=== PATIENT | female | born 1990 | race Caucasian/White ===

== ENCOUNTER 2018-04-27 13:22 | Inpatient (IN) | payer MEDICAID ==
[~2018-04-27] VITALS: Ht 162.6 cm; Wt 63.5 kg
[2018-04-27] MEDS ORDERED: ZOLPIDEM TARTRATE 10 MG TABLET PO PRN (17:15)
[2018-04-27 19:13] VITALS: BP 113/61
[2018-04-27] MEDS ORDERED: DOCUSATE SODIUM 100 MG CAPSULE PO PRN (19:15)
[2018-04-27] MEDS ORDERED: MAG HYDROX/AL HYDROX/SIMETH ES 30 ML SUSPENSION UDCUP PO PRN (19:15)
[2018-04-27] MEDS ORDERED: CloNIDine HCL 0.1 MG TABLET PO PRN (19:15)
[2018-04-27] MEDS ORDERED: ONDANSETRON HCL 4 MG TABLET PO PRN (19:15)
[2018-04-27] MEDS ORDERED: GuaiFENesin/D-METHORPHAN [SUGAR-FREE] 200-20MG/10 ML SYRUP UDCUP PO PRN (19:15)
[2018-04-27] MEDS ORDERED: IBUPROFEN 400 MG TABLET PO PRN (19:15)
[2018-04-27] MEDS ORDERED: LOPERAMIDE HCL 2 MG CAPSULE PO PRN (19:15)
[2018-04-27] MEDS ORDERED: MAGNESIUM HYDROXIDE SUSPENSION 30 ML UDCUP PO PRN (19:15)
[2018-04-27] MEDS ORDERED: PETROLATUM,WHITE 71 GM JELLY TP PRN (19:15)
[2018-04-27] MEDS ORDERED: NICOTINE 14 MG/24 HOUR PATCH TD PRN (19:15)
[2018-04-27] MEDS ORDERED: ALBUTEROL SULFATE HFA 90 MCG/PUFF 8 GM INHALER IH PRN (19:15)
[2018-04-27] MEDS ORDERED: ACETAMINOPHEN 325 MG TABLET PO PRN (19:15)
[2018-04-28 06:18] VITALS: BP 116/68
[2018-04-28 08:56] VITALS: BP 107/63
[2018-04-28] MEDS: RisperiDONE 1 MG TABLET PO SCH ×2 (14:46→16:17)
[2018-04-28 16:00] VITALS: BP 100/8
[2018-04-28] MEDS: NICOTINE 14 MG/24 HOUR PATCH TD SCH (17:53)
[2018-04-29] VITALS: BP 94/45
[2018-04-29 09:03] VITALS: BP 108/65
[2018-04-29] MEDS: RisperiDONE 1 MG TABLET PO SCH ×2 (09:39→16:37)
[2018-04-29] MEDS: NICOTINE 14 MG/24 HOUR PATCH TD SCH (09:40)
[2018-04-29] MEDS: LORazepam 2 MG TABLET PO PRN (13:32)
[2018-04-29] MEDS: HALOPERIDOL 5 MG TABLET PO PRN (14:51)
[2018-04-29 16:00] VITALS: BP 109/59
[2018-04-29] MEDS: MIRTAZAPINE 15 MG TABLET PO SCH (20:49)
[2018-04-30 02:21] VITALS: BP 110/74
[2018-04-30 08:23] VITALS: BP 102/60
[2018-04-30] MEDS: RisperiDONE 1 MG TABLET PO SCH ×2 (08:40→16:07)
[2018-04-30] MEDS: NICOTINE 14 MG/24 HOUR PATCH TD SCH (08:40)
[2018-04-30] MEDS: LORazepam 2 MG TABLET PO PRN (14:32)
[2018-04-30] MEDS: HALOPERIDOL 5 MG TABLET PO PRN (14:32)
[2018-04-30 16:19] VITALS: BP 98/68
[2018-04-30] MEDS: MIRTAZAPINE 15 MG TABLET PO SCH (20:17)
[2018-05-01 06:56] VITALS: BP 101/63
[2018-05-01 08:35] VITALS: BP 104/60
[2018-05-01] MEDS: NICOTINE 14 MG/24 HOUR PATCH TD SCH (09:18)
[2018-05-01] MEDS: RisperiDONE 2 MG TABLET PO SCH ×2 (09:20→17:17)
[2018-05-01] MEDS: LORazepam 2 MG TABLET PO PRN ×2 (14:30→18:32)
[2018-05-01 16:07] VITALS: BP 118/69
[2018-05-01] MEDS: HALOPERIDOL 5 MG TABLET PO PRN (16:07)
[2018-05-01] MEDS: MIRTAZAPINE 15 MG TABLET PO SCH (21:09)
[2018-05-02 06:15] VITALS: BP 124/70
[2018-05-02] MEDS: RisperiDONE 2 MG TABLET PO SCH ×2 (08:22→16:11)
[2018-05-02] MEDS: NICOTINE 14 MG/24 HOUR PATCH TD SCH ×2 (08:24→14:24)
[2018-05-02 08:28] VITALS: BP 101/61
[2018-05-02] MEDS: LORazepam 2 MG TABLET PO PRN ×2 (13:16→18:44)
[2018-05-02] MEDS: HALOPERIDOL 5 MG TABLET PO PRN (13:16)
[2018-05-02 16:00] VITALS: BP 110/74
[2018-05-02] MEDS: MIRTAZAPINE 15 MG TABLET PO SCH (20:27)
[2018-05-03 01:47] VITALS: BP 109/68
[2018-05-03] MEDS: NICOTINE 14 MG/24 HOUR PATCH TD SCH (09:51)
[2018-05-03] MEDS: RisperiDONE 2 MG TABLET PO SCH ×2 (09:56→17:03)
[2018-05-03] MEDS: LORazepam 2 MG TABLET PO PRN (15:56)
[2018-05-03 16:00] VITALS: BP 111/64
[2018-05-03] MEDS: MIRTAZAPINE 15 MG TABLET PO SCH (21:31)
[2018-05-04 04:05] VITALS: BP 100/68
[2018-05-04] MEDS: RisperiDONE 2 MG TABLET PO SCH ×2 (09:15→16:47)
[2018-05-04] MEDS: NICOTINE 14 MG/24 HOUR PATCH TD SCH (09:16)
[2018-05-04] MEDS: HALOPERIDOL 5 MG TABLET PO PRN ×2 (12:27→16:47)
[2018-05-04] MEDS: LORazepam 2 MG TABLET PO PRN ×2 (12:27→16:47)
[2018-05-04] MEDS: TRIHEXYPHENIDYL HCL 5 MG TABLET PO SCH ×2 (12:57→16:47)
[2018-05-04 16:23] VITALS: BP 110/62
[2018-05-04] MEDS: MIRTAZAPINE 15 MG TABLET PO SCH (20:34)
[2018-05-05 01:33] VITALS: BP 101/65
[2018-05-05] MEDS: LORazepam 2 MG TABLET PO PRN (01:35)
[2018-05-05] MEDS: NICOTINE 14 MG/24 HOUR PATCH TD SCH (08:29)
[2018-05-05] MEDS: RisperiDONE 2 MG TABLET PO SCH (08:29)
[2018-05-05] MEDS: TRIHEXYPHENIDYL HCL 5 MG TABLET PO SCH (08:31)
[2018-05-05] MEDS ORDERED: MIRT15 PO (11:54)
[2018-05-05] MEDS ORDERED: TRIH5TAB2 PO (11:54)
[2018-05-05] MEDS ORDERED: RISP2 PO (11:54)
== END 2018-05-05 12:10 | disposition home or self-care (01) | DRG 750 ==
LOC: B2S 17:09
PROVIDERS: ADMIT Psychiatry & Neurology Child & Adolescent Psychiatry; ATTEND Psychiatry & Neurology Child & Adolescent Psychiatry
DX: F25.0 Schizoaffective disorder, bipolar type (principal); R45.851 Suicidal ideations; F12.90 Cannabis use, unspecified, uncomplicated; F41.9 Anxiety disorder, unspecified; Z28.21 Immunization not carried out because of patient refusal; F14.90 Cocaine use, unspecified, uncomplicated; F60.3 Borderline personality disorder; G47.00 Insomnia, unspecified; F19.10 Other psychoactive substance abuse, uncomplicated; Z71.51 Drug abuse counseling and surveillance of drug abuser

== ENCOUNTER 2018-05-12 16:06 | Inpatient (IN) | payer MEDICAID ==
[~2018-05-12] VITALS: Ht 160 cm; Wt 61.4 kg
[~2018-05-12 16:06] MED LIST: MIRT15 PO; RISP2 PO; TRIH5TAB2 PO
[2018-05-12 18:56] VITALS: BP 130/68
[2018-05-12] MEDS ORDERED: MAG HYDROX/AL HYDROX/SIMETH ES 30 ML SUSPENSION UDCUP PO PRN (20:30)
[2018-05-12] MEDS ORDERED: ALBUTEROL SULFATE HFA 90 MCG/PUFF 8 GM INHALER IH PRN (20:30)
[2018-05-12] MEDS ORDERED: DOCUSATE SODIUM 100 MG CAPSULE PO PRN (20:30)
[2018-05-12] MEDS ORDERED: IBUPROFEN 400 MG TABLET PO PRN (20:30)
[2018-05-12] MEDS ORDERED: GuaiFENesin/D-METHORPHAN [SUGAR-FREE] 200-20MG/10 ML SYRUP UDCUP PO PRN (20:30)
[2018-05-12] MEDS ORDERED: ONDANSETRON HCL 4 MG TABLET PO PRN (20:30)
[2018-05-12] MEDS ORDERED: ACETAMINOPHEN 325 MG TABLET PO PRN (20:30)
[2018-05-12] MEDS ORDERED: PETROLATUM,WHITE 71 GM JELLY TP PRN (20:30)
[2018-05-12] MEDS ORDERED: LOPERAMIDE HCL 2 MG CAPSULE PO PRN (20:30)
[2018-05-12] MEDS ORDERED: CloNIDine HCL 0.1 MG TABLET PO PRN (20:30)
[2018-05-12] MEDS ORDERED: MAGNESIUM HYDROXIDE SUSPENSION 30 ML UDCUP PO PRN (20:30)
[2018-05-12 22:36] VITALS: BP 120/61
[2018-05-13 00:44] VITALS: BP 103/63
[2018-05-13 08:20] VITALS: BP 100/62
[2018-05-13] MEDS: LORazepam 2 MG TABLET PO PRN (12:05)
[2018-05-13] MEDS: TRIHEXYPHENIDYL HCL 5 MG TABLET PO SCH ×2 (12:05→16:18)
[2018-05-13] MEDS: RisperiDONE 3 MG TABLET PO SCH (16:18)
[2018-05-13 16:37] VITALS: BP 111/56
[2018-05-13] MEDS: MIRTAZAPINE 30 MG TABLET PO SCH (20:29)
[2018-05-14 00:30] VITALS: BP 127/84
[2018-05-14 08:28] VITALS: BP 100/61
[2018-05-14] MEDS: RisperiDONE 3 MG TABLET PO SCH ×2 (08:37→17:00)
[2018-05-14] MEDS: TRIHEXYPHENIDYL HCL 5 MG TABLET PO SCH ×3 (08:37→17:00)
[2018-05-14 17:03] VITALS: BP 115/67
[2018-05-14] MEDS: LORazepam 2 MG TABLET PO PRN (17:33)
[2018-05-14] MEDS: MIRTAZAPINE 30 MG TABLET PO SCH (20:17)
[2018-05-15 05:51] VITALS: BP 101/56
[2018-05-15] MEDS: TRIHEXYPHENIDYL HCL 5 MG TABLET PO SCH ×3 (08:41→16:33)
[2018-05-15] MEDS: RisperiDONE 3 MG TABLET PO SCH ×2 (08:41→16:33)
[2018-05-15] MEDS: LORazepam 2 MG TABLET PO PRN (16:33)
[2018-05-15 18:06] VITALS: BP 114/67
[2018-05-15] MEDS: MIRTAZAPINE 30 MG TABLET PO SCH (20:23)
[2018-05-16 01:15] VITALS: BP 110/68
[2018-05-16 08:33] VITALS: BP 109/72
[2018-05-16] MEDS: RisperiDONE 3 MG TABLET PO SCH ×2 (09:08→16:19)
[2018-05-16] MEDS: TRIHEXYPHENIDYL HCL 5 MG TABLET PO SCH ×3 (09:08→16:19)
[2018-05-16] MEDS: LORazepam 2 MG TABLET PO PRN (14:53)
[2018-05-16 16:54] VITALS: BP 104/60
[2018-05-16] MEDS: MIRTAZAPINE 30 MG TABLET PO SCH (20:46)
[2018-05-17 00:05] VITALS: BP 119/60
[2018-05-17 08:49] VITALS: BP 104/69
[2018-05-17] MEDS: RisperiDONE 3 MG TABLET PO SCH ×2 (09:13→16:21)
[2018-05-17] MEDS: TRIHEXYPHENIDYL HCL 5 MG TABLET PO SCH ×3 (09:13→16:21)
[2018-05-17 16:29] VITALS: BP 103/69
[2018-05-17] MEDS: MIRTAZAPINE 30 MG TABLET PO SCH (20:50)
[2018-05-18] MEDS: ZOLPIDEM TARTRATE 10 MG TABLET PO PRN ×2 (00:24→19:45)
[2018-05-18 00:38] VITALS: BP 116/60
[2018-05-18 08:35] VITALS: BP_SYST 100; BP_DIAS 50; BP_DIAS 60
[2018-05-18] MEDS: TRIHEXYPHENIDYL HCL 5 MG TABLET PO SCH ×3 (09:10→17:36)
[2018-05-18] MEDS: RisperiDONE 3 MG TABLET PO SCH ×2 (09:10→17:36)
[2018-05-18 17:08] VITALS: BP 99/56
[2018-05-18] MEDS: MIRTAZAPINE 30 MG TABLET PO SCH (21:09)
[2018-05-19 00:56] VITALS: BP 102/63
[2018-05-19] MEDS: TRIHEXYPHENIDYL HCL 5 MG TABLET PO SCH ×3 (08:37→16:01)
[2018-05-19] MEDS: RisperiDONE 3 MG TABLET PO SCH ×2 (08:37→16:01)
[2018-05-19 11:00] VITALS: BP 105/61
[2018-05-19] MEDS: HALOPERIDOL 5 MG TABLET PO PRN (15:05)
[2018-05-19] MEDS: LORazepam 2 MG TABLET PO PRN (15:49)
[2018-05-19 16:00] VITALS: BP 103/62
[2018-05-19] MEDS: MIRTAZAPINE 30 MG TABLET PO SCH (20:36)
[2018-05-20 00:18] VITALS: BP 85/42
[2018-05-20] MEDS: RisperiDONE 3 MG TABLET PO SCH ×2 (09:04→17:03)
[2018-05-20] MEDS: TRIHEXYPHENIDYL HCL 5 MG TABLET PO SCH ×3 (09:04→17:03)
[2018-05-20 09:13] VITALS: BP 96/61
[2018-05-20] MEDS: LORazepam 2 MG TABLET PO PRN ×2 (11:12→17:03)
[2018-05-20 16:09] VITALS: BP 109/68
[2018-05-20] MEDS: HALOPERIDOL 5 MG TABLET PO PRN (17:03)
[2018-05-20] MEDS: NICOTINE 14 MG/24 HOUR PATCH TD PRN (17:56)
[2018-05-20] MEDS: ZOLPIDEM TARTRATE 10 MG TABLET PO PRN (20:09)
[2018-05-20] MEDS: MIRTAZAPINE 30 MG TABLET PO SCH (20:09)
[2018-05-21 00:57] VITALS: BP 102/62
[2018-05-21] MEDS: RisperiDONE 3 MG TABLET PO SCH ×2 (08:25→16:13)
[2018-05-21] MEDS: TRIHEXYPHENIDYL HCL 5 MG TABLET PO SCH ×3 (08:25→16:13)
[2018-05-21 08:36] VITALS: BP 102/61
[2018-05-21] MEDS: LORazepam 2 MG TABLET PO PRN (12:25)
[2018-05-21] MEDS: HALOPERIDOL 5 MG TABLET PO PRN (12:25)
[2018-05-21] MEDS: NICOTINE 14 MG/24 HOUR PATCH TD PRN (14:10)
[2018-05-21 18:55] VITALS: BP 100/65
[2018-05-21] MEDS: MIRTAZAPINE 30 MG TABLET PO SCH (20:22)
[2018-05-21] MEDS: ZOLPIDEM TARTRATE 10 MG TABLET PO PRN (20:22)
[2018-05-22 01:01] VITALS: BP 110/65
[2018-05-22 08:28] VITALS: BP 116/81
[2018-05-22] MEDS: RisperiDONE 3 MG TABLET PO SCH ×2 (08:49→16:02)
[2018-05-22] MEDS: TRIHEXYPHENIDYL HCL 5 MG TABLET PO SCH ×3 (08:49→16:02)
[2018-05-22] MEDS: LORazepam 2 MG TABLET PO PRN ×2 (10:57→17:32)
[2018-05-22 16:13] VITALS: BP 109/62
[2018-05-22 17:32] VITALS: BP 119/72
[2018-05-22] MEDS: MIRTAZAPINE 30 MG TABLET PO SCH (20:00)
[2018-05-23 06:34] VITALS: BP 102/65
[2018-05-23] MEDS: TRIHEXYPHENIDYL HCL 5 MG TABLET PO SCH ×3 (09:12→16:17)
[2018-05-23] MEDS: RisperiDONE 3 MG TABLET PO SCH ×2 (09:12→16:17)
[2018-05-23 09:35] VITALS: BP 119/74
[2018-05-23] MEDS: LORazepam 2 MG TABLET PO PRN (11:27)
[2018-05-23 16:23] VITALS: BP 102/63
[2018-05-23] MEDS: MIRTAZAPINE 30 MG TABLET PO SCH (20:39)
[2018-05-23] MEDS: ZOLPIDEM TARTRATE 10 MG TABLET PO PRN (23:47)
[2018-05-24 00:24] VITALS: BP 100/60
[2018-05-24] MEDS: LORazepam 2 MG TABLET PO PRN ×2 (05:30→16:11)
[2018-05-24] MEDS: RisperiDONE 3 MG TABLET PO SCH ×2 (09:07→17:03)
[2018-05-24] MEDS: TRIHEXYPHENIDYL HCL 5 MG TABLET PO SCH ×3 (09:07→17:03)
[2018-05-24 10:19] VITALS: BP 97/61
[2018-05-24 16:11] VITALS: BP 108/68
[2018-05-24] MEDS: MIRTAZAPINE 30 MG TABLET PO SCH (20:18)
[2018-05-24] MEDS: ZOLPIDEM TARTRATE 10 MG TABLET PO PRN (21:06)
[2018-05-25 05:48] VITALS: BP 110/68
[2018-05-25] MEDS: TRIHEXYPHENIDYL HCL 5 MG TABLET PO SCH ×3 (09:03→16:09)
[2018-05-25] MEDS: RisperiDONE 3 MG TABLET PO SCH ×2 (09:03→16:09)
[2018-05-25 09:07] VITALS: BP 101/60
[2018-05-25] MEDS: LORazepam 2 MG TABLET PO PRN (14:30)
[2018-05-25] MEDS: NICOTINE 14 MG/24 HOUR PATCH TD PRN (16:11)
[2018-05-25 16:47] VITALS: BP 109/69
[2018-05-25] MEDS: MIRTAZAPINE 30 MG TABLET PO SCH (20:23)
[2018-05-25] MEDS: ZOLPIDEM TARTRATE 10 MG TABLET PO PRN (21:28)
[2018-05-26 01:08] VITALS: BP 100/60
[2018-05-26 08:27] VITALS: BP_SYST 100; BP_SYST 92; BP_DIAS 59; BP_DIAS 63
[2018-05-26] MEDS: RisperiDONE 3 MG TABLET PO SCH ×2 (08:33→16:01)
[2018-05-26] MEDS: TRIHEXYPHENIDYL HCL 5 MG TABLET PO SCH ×3 (08:33→16:01)
[2018-05-26] MEDS: LORazepam 2 MG TABLET PO PRN (12:45)
[2018-05-26] MEDS: NICOTINE 14 MG/24 HOUR PATCH TD PRN (14:02)
[2018-05-26 16:55] VITALS: BP 102/68
[2018-05-26] MEDS: ZOLPIDEM TARTRATE 10 MG TABLET PO PRN (20:11)
[2018-05-26] MEDS: MIRTAZAPINE 30 MG TABLET PO SCH (20:11)
[2018-05-27 06:59] VITALS: BP 101/66
[2018-05-27 08:47] VITALS: BP 104/64
[2018-05-27] MEDS: RisperiDONE 3 MG TABLET PO SCH (08:57)
[2018-05-27] MEDS: TRIHEXYPHENIDYL HCL 5 MG TABLET PO SCH ×2 (08:57→12:34)
[2018-05-27] MEDS ORDERED: ESCI20TA PO (10:40)
[2018-05-27] MEDS ORDERED: ARIP30TA PO (10:40)
[2018-05-27] MEDS ORDERED: BUPR300T53 PO (10:40)
[2018-05-27] MEDS: NICOTINE 14 MG/24 HOUR PATCH TD PRN (10:58)
== END 2018-05-27 14:13 | disposition home or self-care (01) | DRG 750 ==
LOC: B2S 18:46
PROVIDERS: ADMIT Psychiatry & Neurology Psychiatry; ATTEND Psychiatry & Neurology Child & Adolescent Psychiatry
DX: F25.0 Schizoaffective disorder, bipolar type (principal); R45.851 Suicidal ideations; F15.20 Other stimulant dependence, uncomplicated; F12.90 Cannabis use, unspecified, uncomplicated; F14.90 Cocaine use, unspecified, uncomplicated; F22 Delusional disorders; F41.9 Anxiety disorder, unspecified; G47.00 Insomnia, unspecified; R45.84 Anhedonia; R45.1 Restlessness and agitation; R45.87 Impulsiveness; F60.3 Borderline personality disorder; Z59.0 Homelessness; Z91.19 Patient's noncompliance with other medical treatment and regimen; Z91.5 Personal history of self-harm
CPT/HCPCS: 87081

== ENCOUNTER 2018-07-13 16:09 | Inpatient (IN) | payer MEDICAID ==
[~2018-07-13] VITALS: Ht 160 cm; Wt 72.1 kg
[~2018-07-13 16:09] MED LIST changes: +ARIP30TA PO; +BUPR300T53 PO; +ESCI20TA PO; -MIRT15 PO; -RISP2 PO; -TRIH5TAB2 PO
[2018-07-13 16:32] VITALS: BP 133/91
[2018-07-13] MEDS: HALOPERIDOL 5 MG TABLET PO PRN (18:42)
[2018-07-13] MEDS: LORazepam 2 MG TABLET PO PRN (18:42)
[2018-07-13 19:29] VITALS: BP 114/82
[2018-07-13] MEDS ORDERED: CloNIDine HCL 0.1 MG TABLET PO PRN (19:30)
[2018-07-13] MEDS ORDERED: GuaiFENesin/D-METHORPHAN [SUGAR-FREE] 200-20MG/10 ML SYRUP UDCUP PO PRN (19:30)
[2018-07-13] MEDS ORDERED: MAGNESIUM HYDROXIDE SUSPENSION 30 ML UDCUP PO PRN (19:30)
[2018-07-13] MEDS ORDERED: MAG HYDROX/AL HYDROX/SIMETH ES 30 ML SUSPENSION UDCUP PO PRN (19:30)
[2018-07-13] MEDS ORDERED: ACETAMINOPHEN 325 MG TABLET PO PRN (19:30)
[2018-07-13] MEDS ORDERED: DOCUSATE SODIUM 100 MG CAPSULE PO PRN (19:30)
[2018-07-13] MEDS ORDERED: ALBUTEROL SULFATE HFA 90 MCG/PUFF 8 GM INHALER IH PRN (19:30)
[2018-07-13] MEDS ORDERED: PETROLATUM,WHITE 71 GM JELLY TP PRN (19:30)
[2018-07-13] MEDS ORDERED: LOPERAMIDE HCL 2 MG CAPSULE PO PRN (19:30)
[2018-07-13] MEDS ORDERED: ONDANSETRON HCL 4 MG TABLET PO PRN (19:30)
[2018-07-13] MEDS ORDERED: IBUPROFEN 400 MG TABLET PO PRN (19:30)
[2018-07-13] MEDS: ZOLPIDEM TARTRATE 10 MG TABLET PO PRN (21:30)
[2018-07-14 06:25] VITALS: BP 102/63
[2018-07-14 10:00] VITALS: BP 108/70
[2018-07-14] MEDS: HALOPERIDOL 5 MG TABLET PO PRN (10:10)
[2018-07-14] MEDS: LORazepam 2 MG TABLET PO PRN (10:10)
[2018-07-14] MEDS: NICOTINE 14 MG/24 HOUR PATCH TD PRN (12:22)
[2018-07-14 16:07] VITALS: BP 108/60
[2018-07-14] MEDS: RisperiDONE 2 MG TABLET PO SCH (20:22)
[2018-07-14] MEDS: MIRTAZAPINE 15 MG TABLET PO SCH (20:22)
[2018-07-15 06:58] VITALS: BP 110/68
[2018-07-15 08:11] VITALS: BP 123/74
[2018-07-15] MEDS: HALOPERIDOL 5 MG TABLET PO PRN ×3 (09:19→18:27)
[2018-07-15] MEDS: LORazepam 2 MG TABLET PO PRN ×3 (09:19→18:27)
[2018-07-15] MEDS: NICOTINE 14 MG/24 HOUR PATCH TD PRN (10:08)
[2018-07-15 17:00] VITALS: BP 124/68
[2018-07-15] MEDS: MIRTAZAPINE 15 MG TABLET PO SCH (21:07)
[2018-07-15] MEDS: RisperiDONE 2 MG TABLET PO SCH (21:07)
[2018-07-16 07:01] VITALS: BP 100/60
[2018-07-16 07:55] VITALS: BP 113/78
[2018-07-16 08:13] VITALS: BP 113/78
[2018-07-16] MEDS: NICOTINE 14 MG/24 HOUR PATCH TD PRN (10:26)
[2018-07-16] MEDS: HALOPERIDOL 5 MG TABLET PO PRN ×3 (10:26→22:21)
[2018-07-16] MEDS: LORazepam 2 MG TABLET PO PRN ×3 (10:26→20:11)
[2018-07-16 18:59] VITALS: BP 126/69
[2018-07-16] MEDS: ZOLPIDEM TARTRATE 10 MG TABLET PO PRN (20:11)
[2018-07-16] MEDS: RisperiDONE 2 MG TABLET PO SCH (20:11)
[2018-07-16] MEDS: MIRTAZAPINE 15 MG TABLET PO SCH (20:11)
[2018-07-17 00:49] VITALS: BP 103/65
[2018-07-17 08:17] VITALS: BP 118/69
[2018-07-17] MEDS: LORazepam 2 MG TABLET PO PRN ×2 (11:49→16:15)
[2018-07-17] MEDS: HALOPERIDOL 5 MG TABLET PO PRN ×2 (12:04→16:15)
[2018-07-17] MEDS: NICOTINE 21 MG/24 HOUR PATCH TD SCH (14:22)
[2018-07-17 16:13] VITALS: BP 110/82
[2018-07-17] MEDS: RisperiDONE 2 MG TABLET PO SCH (20:54)
[2018-07-17] MEDS: ZOLPIDEM TARTRATE 10 MG TABLET PO PRN (20:55)
[2018-07-17] MEDS: MIRTAZAPINE 15 MG TABLET PO SCH (20:55)
[2018-07-18 00:43] VITALS: BP 121/66
[2018-07-18] MEDS: NICOTINE 21 MG/24 HOUR PATCH TD SCH (08:05)
[2018-07-18 08:19] VITALS: BP 109/66
[2018-07-18] MEDS: HALOPERIDOL 5 MG TABLET PO PRN ×3 (11:04→16:05)
[2018-07-18] MEDS: LORazepam 2 MG TABLET PO PRN ×3 (11:04→16:05)
[2018-07-18 16:10] VITALS: BP 117/78
[2018-07-18] MEDS: RisperiDONE 2 MG TABLET PO SCH (20:29)
[2018-07-18] MEDS: MIRTAZAPINE 15 MG TABLET PO SCH (20:29)
[2018-07-18] MEDS: ZOLPIDEM TARTRATE 10 MG TABLET PO PRN (21:12)
[2018-07-19 06:21] VITALS: BP 114/69
[2018-07-19] MEDS: NICOTINE 21 MG/24 HOUR PATCH TD SCH (08:44)
[2018-07-19] MEDS: LORazepam 2 MG TABLET PO PRN ×3 (09:37→18:05)
[2018-07-19] MEDS: HALOPERIDOL 5 MG TABLET PO PRN ×3 (09:37→18:05)
[2018-07-19 16:20] VITALS: BP 110/62
[2018-07-19] MEDS: MIRTAZAPINE 15 MG TABLET PO SCH (20:06)
[2018-07-19] MEDS: RisperiDONE 2 MG TABLET PO SCH (20:06)
[2018-07-19] MEDS: ZOLPIDEM TARTRATE 10 MG TABLET PO PRN (20:58)
[2018-07-20] MEDS ORDERED: MIRT15TA98 PO (02:51)
[2018-07-20] MEDS ORDERED: RISP2TAB76 PO (02:57)
[2018-07-20 06:48] VITALS: BP 115/65
[2018-07-20 08:00] VITALS: BP 117/86
[2018-07-20 08:41] LABS: BASOPHILS % (AUTO) 0.4 % (0.0-2.0); EOSINOPHILS % (AUTO) 1.6 % (1.0-6.0); HEMATOCRIT 41.2 % (36-46); HEMOGLOBIN 14.4 g/dL (12.0-16.0); LYMPHOCYTES # (AUTO) 2.4 K/uL (1.0-4.8); LYMPHOCYTES % (AUTO) 38.1 % (22.0-44.0); MEAN CORPUSCULAR HGB CONC 34.9 G/dL (31.0-37.0); MEAN CORPUSCULAR VOLUME 86 fL (80-100); MONOCYTES # (AUTO) 0.6 K/uL (0.1-1.0); MONOCYTES % (AUTO) 8.8 % (2.0-9.0); NEUTROPHILS # (AUTO) 3.3 K/uL (1.8-7.7); NEUTROPHILS % (AUTO) 51.1 % (40.0-70.0); PLATELET COUNT (AUTO) 215 K/uL (150-450); RED CELL DISTRIBUTION WIDTH 12.4 % (11.5-14.5)
[2018-07-20 09:12] LABS: ALANINE AMINOTRANSFERASE 18 U/L (12-78); ALBUMIN 3.3 g/dL (3.4-5.0); ALKALINE PHOSPHATASE 70 U/L (46-116); ANION GAP 6 mmol/L (8-16); ASPARTATE AMINOTRANSFERASE 18 U/L (15-37); BILIRUBIN,TOTAL 0.4 mg/dL (0.1-1.0); CALCIUM, TOTAL 9.2 mg/dL (8.8-10.5); CARBON DIOXIDE 28 mmol/L (22-29); CHLORIDE 104 mmol/L (98-107); CHOL/HDL RATIO 3.4 (3.9-5.7); CHOLESTEROL 142 mg/dL (131-200); FREE T4 (FREE THYROXINE) 0.99 ng/dL (0.76-1.46); GLOMERULAR FILTR. RATE CALC > 60 mL/min (>60); GLUCOSE,RANDOM 81 mg/dL (70-110); HCG,QUANTITATIVE < 1 mIU/mL (0-6); HDL CHOLESTEROL 42 mg/dL (40-60); LDL CHOL (CALC.) 90 mg/dL (0-130); POTASSIUM 4.2 mmol/L (3.5-5.1); SODIUM SERUM 138 mmol/L (136-145); THYROID STIMULATING HORMONE 2.21 uIU/mL (0.36-3.74); TOTAL PROTEIN, SERUM 7.6 g/dL (6.4-8.2); TRIGLYCERIDES 52 mg/dL (15-150); UREA NITROGEN, BLOOD 16 mg/dL (7-18)
== END 2018-07-20 08:15 | disposition home or self-care (01) | DRG 750 ==
LOC: B3A 17:11
PROVIDERS: ADMIT Psychiatry & Neurology Psychiatry; ATTEND Psychiatry & Neurology Psychiatry
DX: F25.9 Schizoaffective disorder, unspecified (principal); R45.851 Suicidal ideations; F12.90 Cannabis use, unspecified, uncomplicated; F14.90 Cocaine use, unspecified, uncomplicated; F41.9 Anxiety disorder, unspecified; G44.209 Tension-type headache, unspecified, not intractable; Z91.5 Personal history of self-harm
CPT/HCPCS: 84439; 84443; Q0162

== ENCOUNTER 2018-07-21 20:35 | Inpatient (IN) | payer MEDICAID ==
[~2018-07-21] VITALS: Ht 162.6 cm; Wt 66.2 kg
[~2018-07-21 20:35] MED LIST changes: -ARIP30TA PO; -BUPR300T53 PO; -ESCI20TA PO; +MIRT15TA98 PO; +RISP2TAB76 PO
[2018-07-22 02:10] LABS: AMPHET/METH SCREEN,URINE POSITIVE (NEGATIVE); BARBITURATE SCREEN, URINE NEGATIVE (NEGATIVE); BENZODIAZEPINES SCREEN,URINE NEGATIVE (NEGATIVE); CANNABINOID SCREEN,URINE NEGATIVE (NEGATIVE); COCAINE SCREEN,URINE NEGATIVE (NEGATIVE); METHADONE SCREEN, URINE NEGATIVE (NEGATIVE); OPIATE SCREEN,URINE POSITIVE (NEGATIVE); PHENCYCLIDINE SCREEN,URINE NEGATIVE (NEGATIVE)
[2018-07-22 03:00] LABS: BASOPHILS % (AUTO) 0.4 % (0.0-2.0); EOSINOPHILS % (AUTO) 0.4 % (1.0-6.0); HEMATOCRIT 40.9 % (36-46); LYMPHOCYTES # (AUTO) 1.8 K/uL (1.0-4.8); LYMPHOCYTES % (AUTO) 29.6 % (22.0-44.0); MEAN CORPUSCULAR HEMOGLOBIN 29.7 pg (26.0-34.0); MEAN CORPUSCULAR HGB CONC 34.1 G/dL (31.0-37.0); MEAN CORPUSCULAR VOLUME 87 fL (80-100); MONOCYTES # (AUTO) 0.6 K/uL (0.1-1.0); MONOCYTES % (AUTO) 9.1 % (2.0-9.0); NEUTROPHILS # (AUTO) 3.7 K/uL (1.8-7.7); NEUTROPHILS % (AUTO) 60.5 % (40.0-70.0); PLATELET COUNT (AUTO) 225 K/uL (150-450); RED BLOOD CELL COUNT(AUTO) 4.71 MIL/uL (4.00-5.20); RED CELL DISTRIBUTION WIDTH 12.3 % (11.5-14.5)
[2018-07-22] MEDS ORDERED: LORazepam 2 MG/ML VIAL IM ONE (03:00)
[2018-07-22] MEDS ORDERED: DiphenhydrAMINE HCL 50 MG/ML VIAL IM ONE (03:00)
[2018-07-22] MEDS ORDERED: HALOPERIDOL LACTATE 5 MG/ML VIAL IM ONE (03:00)
[2018-07-22 03:12] LABS: ANION GAP 12 mmol/L (8-16); CALCIUM, TOTAL 9.8 mg/dL (8.8-10.5); CARBON DIOXIDE 26 mmol/L (22-29); CHLORIDE 97 mmol/L (98-107); CREATININE 0.95 mg/dL (0.60-1.30); GLOMERULAR FILTR. RATE CALC > 60 mL/min (>60); GLUCOSE,RANDOM 104 mg/dL (70-110); SODIUM SERUM 135 mmol/L (136-145); UREA NITROGEN, BLOOD 12 mg/dL (7-18)
[2018-07-22 03:26] LABS: ALANINE AMINOTRANSFERASE 21 U/L (12-78); ALBUMIN 4.1 g/dL (3.4-5.0); ALKALINE PHOSPHATASE 78 U/L (46-116); ASPARTATE AMINOTRANSFERASE 25 U/L (15-37); BILIRUBIN,TOTAL 0.5 mg/dL (0.1-1.0); HCG,QUANTITATIVE < 1 mIU/mL (0-6); TOTAL PROTEIN, SERUM 8.7 g/dL (6.4-8.2)
[2018-07-22] MEDS: HALOPERIDOL 5 MG TABLET PO PRN ×2 (09:20→16:06)
[2018-07-22] MEDS: LORazepam 2 MG TABLET PO PRN ×2 (09:20→16:06)
[2018-07-22 10:29] VITALS: BP 127/77
[2018-07-22] MEDS ORDERED: MAGNESIUM HYDROXIDE SUSPENSION 30 ML UDCUP PO PRN (11:30)
[2018-07-22] MEDS ORDERED: ACETAMINOPHEN 325 MG TABLET PO PRN (11:30)
[2018-07-22] MEDS ORDERED: IBUPROFEN 400 MG TABLET PO PRN (11:30)
[2018-07-22] MEDS ORDERED: CloNIDine HCL 0.1 MG TABLET PO PRN (11:30)
[2018-07-22] MEDS ORDERED: DOCUSATE SODIUM 100 MG CAPSULE PO PRN (11:30)
[2018-07-22] MEDS ORDERED: ONDANSETRON HCL 4 MG TABLET PO PRN (11:30)
[2018-07-22] MEDS ORDERED: MAG HYDROX/AL HYDROX/SIMETH ES 30 ML SUSPENSION UDCUP PO PRN (11:30)
[2018-07-22] MEDS ORDERED: ALBUTEROL SULFATE HFA 90 MCG/PUFF 8 GM INHALER IH PRN (11:30)
[2018-07-22] MEDS ORDERED: PETROLATUM,WHITE 71 GM JELLY TP PRN (11:30)
[2018-07-22] MEDS ORDERED: LOPERAMIDE HCL 2 MG CAPSULE PO PRN (11:30)
[2018-07-22] MEDS ORDERED: GuaiFENesin/D-METHORPHAN [SUGAR-FREE] 200-20MG/10 ML SYRUP UDCUP PO PRN (11:30)
[2018-07-22 16:21] VITALS: BP 110/65
[2018-07-22] MEDS: RisperiDONE 2 MG TABLET PO SCH (20:21)
[2018-07-22] MEDS: MIRTAZAPINE 15 MG TABLET PO SCH (20:21)
[2018-07-23 06:19] VITALS: BP 114/67
[2018-07-23 08:07] VITALS: BP 101/65
[2018-07-23] MEDS: LORazepam 2 MG TABLET PO PRN ×2 (10:09→16:07)
[2018-07-23] MEDS: HALOPERIDOL 5 MG TABLET PO PRN ×2 (10:10→16:07)
[2018-07-23 16:04] VITALS: BP 109/70
[2018-07-23] MEDS: NICOTINE 14 MG/24 HOUR PATCH TD PRN (16:57)
[2018-07-23] MEDS: MIRTAZAPINE 15 MG TABLET PO SCH (20:19)
[2018-07-23] MEDS: RisperiDONE 2 MG TABLET PO SCH (20:19)
[2018-07-23] MEDS: ZOLPIDEM TARTRATE 10 MG TABLET PO PRN (21:23)
[2018-07-24 03:52] VITALS: BP 111/72
[2018-07-24 08:01] VITALS: BP 101/63
[2018-07-24 10:45] VITALS: BP 112/72
[2018-07-24] MEDS: LORazepam 2 MG TABLET PO PRN ×2 (10:47→15:55)
[2018-07-24] MEDS: HALOPERIDOL 5 MG TABLET PO PRN ×2 (10:47→15:55)
[2018-07-24 16:11] VITALS: BP 118/74
[2018-07-24] MEDS: RisperiDONE 2 MG TABLET PO SCH (20:10)
[2018-07-24] MEDS: MIRTAZAPINE 15 MG TABLET PO SCH (20:10)
[2018-07-25 06:37] VITALS: BP 119/73
[2018-07-25 09:49] VITALS: BP 108/78
[2018-07-25] MEDS: NICOTINE 14 MG/24 HOUR PATCH TD PRN (12:50)
[2018-07-25] MEDS: HALOPERIDOL 5 MG TABLET PO PRN (13:54)
[2018-07-25] MEDS: LORazepam 2 MG TABLET PO PRN (13:54)
[2018-07-25 16:03] VITALS: BP 117/74
[2018-07-25] MEDS: MIRTAZAPINE 15 MG TABLET PO SCH (21:15)
[2018-07-25] MEDS: ZOLPIDEM TARTRATE 10 MG TABLET PO PRN (21:15)
[2018-07-25] MEDS: RisperiDONE 2 MG TABLET PO SCH (21:15)
[2018-07-26 08:24] VITALS: BP 116/71
[2018-07-26] MEDS: HALOPERIDOL 5 MG TABLET PO PRN ×2 (10:35→16:07)
[2018-07-26] MEDS: LORazepam 2 MG TABLET PO PRN ×2 (10:35→17:56)
[2018-07-26 16:03] VITALS: BP 103/59
[2018-07-26 17:55] VITALS: BP 110/74
[2018-07-26] MEDS: MIRTAZAPINE 15 MG TABLET PO SCH (20:36)
[2018-07-26] MEDS: RisperiDONE 2 MG TABLET PO SCH (20:36)
[2018-07-27 05:31] VITALS: BP 106/68
[2018-07-27 09:41] VITALS: BP 108/55
[2018-07-27] MEDS: LORazepam 2 MG TABLET PO PRN ×2 (12:21→16:27)
[2018-07-27] MEDS: NICOTINE 14 MG/24 HOUR PATCH TD PRN (13:50)
[2018-07-27 16:39] VITALS: BP 125/59
[2018-07-27] MEDS: HALOPERIDOL 5 MG TABLET PO PRN (19:13)
[2018-07-27] MEDS: RisperiDONE 2 MG TABLET PO SCH (21:00)
[2018-07-27] MEDS: MIRTAZAPINE 15 MG TABLET PO SCH (21:00)
[2018-07-28 06:00] VITALS: BP 108/60
[2018-07-28] MEDS: HALOPERIDOL 5 MG TABLET PO PRN (10:52)
[2018-07-28] MEDS: LORazepam 2 MG TABLET PO PRN (10:52)
[2018-07-28] MEDS: NICOTINE 14 MG/24 HOUR PATCH TD PRN (14:33)
[2018-07-28 16:27] VITALS: BP 116/61
== END 2018-07-28 17:10 | disposition home or self-care (01) | DRG 750 ==
LOC: EMS 20:36 → B3A 07-22 05:00 → B2S 07-26 13:13
PROVIDERS: ATTEND Psychiatry & Neurology Psychiatry
DX: F25.1 Schizoaffective disorder, depressive type (principal); R45.851 Suicidal ideations; E87.1 Hypo-osmolality and hyponatremia; F17.210 Nicotine dependence, cigarettes, uncomplicated; Z91.5 Personal history of self-harm; Z59.0 Homelessness; G47.00 Insomnia, unspecified; F41.9 Anxiety disorder, unspecified; G44.209 Tension-type headache, unspecified, not intractable; Z79.899 Other long term (current) drug therapy; F19.10 Other psychoactive substance abuse, uncomplicated; F11.10 Opioid abuse, uncomplicated; F32.9 Major depressive disorder, single episode, unspecified
CPT/HCPCS: 87081; 96372; G0480; J1200; J1630; J2060

== ENCOUNTER 2018-08-04 18:46 | Emergency (ER) | payer MEDICAID ==
[~2018-08-04] VITALS: Ht 162.6 cm; Wt 59.1 kg
[2018-08-04] MEDS ORDERED: HYDR50CA10 PO (18:50)
[2018-08-04] MEDS ORDERED: OLAN5TAB2 PO (18:50)
[2018-08-04 20:04] LABS: BASOPHILS % (AUTO) 0.3 % (0.0-2.0); EOSINOPHILS % (AUTO) 1.8 % (1.0-6.0); HEMATOCRIT 41.1 % (36-46); HEMOGLOBIN 13.9 g/dL (12.0-16.0); LYMPHOCYTES # (AUTO) 2.7 K/uL (1.0-4.8); LYMPHOCYTES % (AUTO) 37.5 % (22.0-44.0); MEAN CORPUSCULAR HEMOGLOBIN 29.3 pg (26.0-34.0); MEAN CORPUSCULAR HGB CONC 33.9 G/dL (31.0-37.0); MEAN CORPUSCULAR VOLUME 86 fL (80-100); MONOCYTES # (AUTO) 0.5 K/uL (0.1-1.0); MONOCYTES % (AUTO) 7.3 % (2.0-9.0); NEUTROPHILS # (AUTO) 3.8 K/uL (1.8-7.7); NEUTROPHILS % (AUTO) 53.1 % (40.0-70.0); PLATELET COUNT (AUTO) 238 K/uL (150-450); RED BLOOD CELL COUNT(AUTO) 4.76 MIL/uL (4.00-5.20); RED CELL DISTRIBUTION WIDTH 12.3 % (11.5-14.5)
[2018-08-04 20:13] LABS: ANION GAP 9 mmol/L (8-16); CALCIUM, TOTAL 9.5 mg/dL (8.8-10.5); CARBON DIOXIDE 24 mmol/L (22-29); CHLORIDE 104 mmol/L (98-107); CREATININE 0.88 mg/dL (0.60-1.30); GLOMERULAR FILTR. RATE CALC > 60 mL/min (>60); GLUCOSE,RANDOM 98 mg/dL (70-110); POTASSIUM 3.6 mmol/L (3.5-5.1); SODIUM SERUM 137 mmol/L (136-145); UREA NITROGEN, BLOOD 11 mg/dL (7-18)
[2018-08-04 20:17] LABS: AMPHET/METH SCREEN,URINE NEGATIVE (NEGATIVE); BARBITURATE SCREEN, URINE NEGATIVE (NEGATIVE); BENZODIAZEPINES SCREEN,URINE NEGATIVE (NEGATIVE); CANNABINOID SCREEN,URINE NEGATIVE (NEGATIVE); COCAINE SCREEN,URINE NEGATIVE (NEGATIVE); METHADONE SCREEN, URINE NEGATIVE (NEGATIVE); OPIATE SCREEN,URINE NEGATIVE (NEGATIVE); PHENCYCLIDINE SCREEN,URINE NEGATIVE (NEGATIVE)
[2018-08-04 20:24] LABS: ALANINE AMINOTRANSFERASE 9 U/L (12-78); ALBUMIN 3.8 g/dL (3.4-5.0); ALKALINE PHOSPHATASE 72 U/L (46-116); ASPARTATE AMINOTRANSFERASE 12 U/L (15-37); BILIRUBIN,TOTAL 0.3 mg/dL (0.1-1.0); HCG,QUANTITATIVE < 1 mIU/mL (0-6); TOTAL PROTEIN, SERUM 8.1 g/dL (6.4-8.2)
[2018-08-04 20:29] VITALS: BP 100/60
== END 2018-08-04 20:31 | disposition home or self-care (01) ==
LOC: EMS 18:48
DX: R44.0 Auditory hallucinations (principal); R44.1 Visual hallucinations; R45.851 Suicidal ideations; F31.9 Bipolar disorder, unspecified; F17.210 Nicotine dependence, cigarettes, uncomplicated
CPT/HCPCS: 36415; 80053; 80307; 84702; 85025; 99284; G0480

== ENCOUNTER 2018-08-12 20:27 | Emergency (ER) | payer MEDICAID ==
[~2018-08-12] VITALS: Ht 162.6 cm; Wt 57.0 kg
[~2018-08-12 20:27] MED LIST changes: +HYDR50CA10 PO; +OLAN5TAB2 PO
[2018-08-12 21:39] LABS: BASOPHILS % (AUTO) 0.3 % (0.0-2.0); EOSINOPHILS % (AUTO) 0.2 % (1.0-6.0); HEMATOCRIT 42.8 % (36-46); HEMOGLOBIN 14.8 g/dL (12.0-16.0); LYMPHOCYTES # (AUTO) 1.7 K/uL (1.0-4.8); LYMPHOCYTES % (AUTO) 22.1 % (22.0-44.0); MEAN CORPUSCULAR HEMOGLOBIN 30.2 pg (26.0-34.0); MEAN CORPUSCULAR HGB CONC 34.7 G/dL (31.0-37.0); MEAN CORPUSCULAR VOLUME 87 fL (80-100); MONOCYTES # (AUTO) 0.6 K/uL (0.1-1.0); MONOCYTES % (AUTO) 8.2 % (2.0-9.0); NEUTROPHILS # (AUTO) 5.4 K/uL (1.8-7.7); NEUTROPHILS % (AUTO) 69.2 % (40.0-70.0); PLATELET COUNT (AUTO) 297 K/uL (150-450); RED BLOOD CELL COUNT(AUTO) 4.91 MIL/uL (4.00-5.20); RED CELL DISTRIBUTION WIDTH 12.9 % (11.5-14.5)
[2018-08-12 22:00] LABS: ANION GAP 13 mmol/L (8-16); CALCIUM, TOTAL 10.3 mg/dL (8.8-10.5); CARBON DIOXIDE 26 mmol/L (22-29); CHLORIDE 104 mmol/L (98-107); CREATININE 0.99 mg/dL (0.60-1.30); GLOMERULAR FILTR. RATE CALC > 60 mL/min (>60); GLUCOSE,RANDOM 113 mg/dL (70-110); POTASSIUM 4.2 mmol/L (3.5-5.1); SODIUM SERUM 143 mmol/L (136-145); UREA NITROGEN, BLOOD 9 mg/dL (7-18)
[2018-08-12] MEDS ORDERED: LORazepam 0.5 MG TABLET PO ONE (22:00)
[2018-08-12 22:05] LABS: ALANINE AMINOTRANSFERASE 19 U/L (12-78); ALBUMIN 4.4 g/dL (3.4-5.0); ALKALINE PHOSPHATASE 76 U/L (46-116); ASPARTATE AMINOTRANSFERASE 18 U/L (15-37); BILIRUBIN,TOTAL 0.4 mg/dL (0.1-1.0)
[2018-08-12 22:05] LABS: AMPHET/METH SCREEN,URINE POSITIVE (NEGATIVE); BARBITURATE SCREEN, URINE NEGATIVE (NEGATIVE); BENZODIAZEPINES SCREEN,URINE NEGATIVE (NEGATIVE); CANNABINOID SCREEN,URINE NEGATIVE (NEGATIVE); COCAINE SCREEN,URINE NEGATIVE (NEGATIVE); METHADONE SCREEN, URINE NEGATIVE (NEGATIVE); OPIATE SCREEN,URINE NEGATIVE (NEGATIVE)
[2018-08-12 22:06] LABS: PHENCYCLIDINE SCREEN,URINE NEGATIVE (NEGATIVE)
[2018-08-12 22:12] LABS: HCG,QUANTITATIVE < 1 mIU/mL (0-6)
[2018-08-12 23:14] VITALS: BP 128/79
== END 2018-08-12 23:34 | disposition home or self-care (01) ==
LOC: EMS 20:28
DX: F41.9 Anxiety disorder, unspecified (principal); F15.10 Other stimulant abuse, uncomplicated; F31.9 Bipolar disorder, unspecified; F17.210 Nicotine dependence, cigarettes, uncomplicated
CPT/HCPCS: 36415; 80053; 80307; 84702; 85025; 99284; G0480

== ENCOUNTER 2018-08-15 01:40 | Inpatient (IN) | payer MEDICAID ==
[~2018-08-15] VITALS: Ht 162.6 cm; Wt 68.0 kg
[2018-08-15 02:31] LABS: APPEARANCE,URINE CLOUDY (CLEAR); BILIRUBIN,URINE NEGATIVE (NEGATIVE); GLUCOSE, URINE (UA) NEGATIVE (NEGATIVE); KETONES,URINE NEGATIVE (NEGATIVE); LEUKOCYTE ESTERASE ,URINE SMALL (NEGATIVE); NITRATE,URINE NEGATIVE (NEGATIVE); OCCULT BLOOD,URINE NEGATIVE (NEGATIVE); PROTEIN,URINE NEGATIVE (NEGATIVE); UROBILINOGEN,URINE 0.2 mg/dL (<=1.0)
[2018-08-15 03:21] LABS: BACTERIA,URINE Moderate /HPF (None Seen); RBC,URINE None Seen /HPF (0-2); SQUAMOUS EPITHELIAL CELL,UR Many /LPF (None Seen)
[2018-08-15 03:31] LABS: BASOPHILS % (AUTO) 0.4 % (0.0-2.0); EOSINOPHILS % (AUTO) 1.7 % (1.0-6.0); HEMATOCRIT 41.8 % (36-46); HEMOGLOBIN 14.1 g/dL (12.0-16.0); LYMPHOCYTES # (AUTO) 2.8 K/uL (1.0-4.8); LYMPHOCYTES % (AUTO) 39.7 % (22.0-44.0); MEAN CORPUSCULAR HEMOGLOBIN 29.6 pg (26.0-34.0); MEAN CORPUSCULAR HGB CONC 33.7 G/dL (31.0-37.0); MEAN CORPUSCULAR VOLUME 88 fL (80-100); MONOCYTES # (AUTO) 0.6 K/uL (0.1-1.0); MONOCYTES % (AUTO) 8.2 % (2.0-9.0); NEUTROPHILS # (AUTO) 3.5 K/uL (1.8-7.7); PLATELET COUNT (AUTO) 280 K/uL (150-450); RED BLOOD CELL COUNT(AUTO) 4.76 MIL/uL (4.00-5.20); RED CELL DISTRIBUTION WIDTH 12.5 % (11.5-14.5)
[2018-08-15 03:46] LABS: ALANINE AMINOTRANSFERASE 12 U/L (12-78); ALBUMIN 3.6 g/dL (3.4-5.0); ALKALINE PHOSPHATASE 79 U/L (46-116); ANION GAP 11 mmol/L (8-16); ASPARTATE AMINOTRANSFERASE 13 U/L (15-37); BILIRUBIN,TOTAL 0.4 mg/dL (0.1-1.0); CALCIUM, TOTAL 9.4 mg/dL (8.8-10.5); CARBON DIOXIDE 26 mmol/L (22-29); CHLORIDE 105 mmol/L (98-107); CREATININE 1.09 mg/dL (0.60-1.30); GLOMERULAR FILTR. RATE CALC > 60 mL/min (>60); GLUCOSE,RANDOM 111 mg/dL (70-110); HCG,QUANTITATIVE < 1 mIU/mL (0-6); SODIUM SERUM 142 mmol/L (136-145); TOTAL PROTEIN, SERUM 7.7 g/dL (6.4-8.2)
[2018-08-15 03:58] LABS: UREA NITROGEN, BLOOD 17 mg/dL (7-18)
[2018-08-15] MEDS ORDERED: LORazepam 2 MG/ML VIAL IM ONE ×2 (04:00→09:45)
[2018-08-15] MEDS ORDERED: HALOPERIDOL LACTATE 5 MG/ML VIAL IM ONE ×2 (04:00→09:45)
[2018-08-15] MEDS ORDERED: DiphenhydrAMINE HCL 50 MG/ML VIAL IM ONE ×2 (04:00→09:45)
[2018-08-15] MEDS ORDERED: ZOLPIDEM TARTRATE 10 MG TABLET PO PRN (04:15)
[2018-08-15] MEDS ORDERED: OLANZapine 5 MG RAPDIS TABLET PO PRN (04:15)
[2018-08-15 04:56] LABS: AMPHET/METH SCREEN,URINE NEGATIVE (NEGATIVE); BARBITURATE SCREEN, URINE NEGATIVE (NEGATIVE); BENZODIAZEPINES SCREEN,URINE NEGATIVE (NEGATIVE); CANNABINOID SCREEN,URINE NEGATIVE (NEGATIVE); COCAINE SCREEN,URINE NEGATIVE (NEGATIVE); METHADONE SCREEN, URINE NEGATIVE (NEGATIVE); OPIATE SCREEN,URINE NEGATIVE (NEGATIVE)
[2018-08-15 05:03] LABS: PHENCYCLIDINE SCREEN,URINE NEGATIVE (NEGATIVE)
[2018-08-15 10:21] VITALS: BP 101/61
[2018-08-15] MEDS ORDERED: MAGNESIUM HYDROXIDE SUSPENSION 30 ML UDCUP PO PRN (13:30)
[2018-08-15] MEDS ORDERED: MAG HYDROX/AL HYDROX/SIMETH ES 30 ML SUSPENSION UDCUP PO PRN (13:30)
[2018-08-15] MEDS ORDERED: LOPERAMIDE HCL 2 MG CAPSULE PO PRN (13:30)
[2018-08-15] MEDS ORDERED: TUBERCULIN, PURIFIED PROTEIN DERIVATIVE 5 TU/0.1 ML SYRINGE ID ONE (13:30)
[2018-08-15] MEDS ORDERED: PROMETHAZINE HCL 25 MG TABLET PO PRN (13:30)
[2018-08-15] MEDS ORDERED: ACETAMINOPHEN 325 MG TABLET PO PRN (13:30)
[2018-08-15] MEDS ORDERED: GuaiFENesin/D-METHORPHAN [SUGAR-FREE] 200-20MG/10 ML SYRUP UDCUP PO PRN (13:30)
[2018-08-15 16:37] VITALS: BP 106/70
[2018-08-15] MEDS: THIAMINE HCL 100 MG TABLET PO SCH (17:12)
[2018-08-15] MEDS: LORazepam 2 MG TABLET PO PRN (20:30)
[2018-08-15] MEDS: HydrOXYzine PAMOATE 50 MG CAPSULE PO PRN (20:30)
[2018-08-15] MEDS: OLANZapine 5 MG RAPDIS TABLET PO SCH (20:53)
[2018-08-16 00:31] VITALS: BP 123/56
[2018-08-16] MEDS: LORazepam 2 MG TABLET PO PRN ×3 (07:15→18:59)
[2018-08-16] MEDS ORDERED: FLUoxetine HCL 20 MG CAPSULE PO SCH (09:00)
[2018-08-16] MEDS: THIAMINE HCL 100 MG TABLET PO SCH ×2 (09:05→16:54)
[2018-08-16] MEDS: FOLIC ACID 1 MG TABLET PO SCH (09:08)
[2018-08-16] MEDS: NALTREXONE HCL 50 MG TABLET PO SCH (09:08)
[2018-08-16] MEDS: MULTIVITAMINS WITH MINERALS, THERAPEUTIC TABLET PO SCH (09:08)
[2018-08-16] MEDS: NICOTINE 21 MG/24 HOUR PATCH TD SCH (09:09)
[2018-08-16 16:10] VITALS: BP 100/60
[2018-08-16] MEDS: HydrOXYzine PAMOATE 50 MG CAPSULE PO PRN (16:54)
[2018-08-16] MEDS: OLANZapine 5 MG RAPDIS TABLET PO SCH (20:28)
[2018-08-17 06:43] VITALS: BP 102/66
[2018-08-17] MEDS: NICOTINE 21 MG/24 HOUR PATCH TD SCH (09:34)
[2018-08-17] MEDS: THIAMINE HCL 100 MG TABLET PO SCH ×2 (09:34→16:46)
[2018-08-17] MEDS: MULTIVITAMINS WITH MINERALS, THERAPEUTIC TABLET PO SCH (09:34)
[2018-08-17] MEDS: FLUoxetine HCL 20 MG CAPSULE PO SCH (09:34)
[2018-08-17] MEDS: FOLIC ACID 1 MG TABLET PO SCH (09:34)
[2018-08-17] MEDS: NALTREXONE HCL 50 MG TABLET PO SCH (09:34)
[2018-08-17 09:58] VITALS: BP 101/62
[2018-08-17] MEDS: HydrOXYzine PAMOATE 50 MG CAPSULE PO PRN ×2 (10:10→19:00)
[2018-08-17] MEDS: LORazepam 2 MG TABLET PO PRN ×2 (10:10→19:00)
[2018-08-17 16:00] VITALS: BP 102/62
[2018-08-17] MEDS ORDERED: NALT50TA PO (16:55)
[2018-08-17] MEDS ORDERED: FLUO-191 PO (16:55)
[2018-08-17] MEDS ORDERED: OLAN10TA22 PO (16:55)
[2018-08-17] MEDS ORDERED: OLANZapine 10 MG RAPDIS TABLET PO SCH (21:00)
[2018-08-18 06:40] VITALS: BP 92/51
[2018-08-18] MEDS ORDERED: NALT50TA6 PO (08:32)
[2018-08-18] MEDS ORDERED: OLAN10TA3 PO (08:32)
[2018-08-18] MEDS ORDERED: FLUO-191 PO (08:32)
[2018-08-18] MEDS ORDERED: OLAN10TA6 PO (08:33)
[2018-08-18 08:39] VITALS: BP 95/50
[2018-08-18] MEDS: NICOTINE 21 MG/24 HOUR PATCH TD SCH (08:53)
[2018-08-18] MEDS: MULTIVITAMINS WITH MINERALS, THERAPEUTIC TABLET PO SCH (08:53)
[2018-08-18] MEDS: FLUoxetine HCL 20 MG CAPSULE PO SCH (08:53)
[2018-08-18] MEDS: FOLIC ACID 1 MG TABLET PO SCH (08:54)
[2018-08-18] MEDS: NALTREXONE HCL 50 MG TABLET PO SCH (08:54)
[2018-08-18] MEDS: THIAMINE HCL 100 MG TABLET PO SCH (08:54)
== END 2018-08-18 15:10 | disposition home or self-care (01) | DRG 750 ==
LOC: EMS 01:41 → B3A 06:30
PROVIDERS: ADMIT Psychiatry & Neurology Psychiatry; ATTEND Psychiatry & Neurology Psychiatry
DX: F25.9 Schizoaffective disorder, unspecified (principal); R45.851 Suicidal ideations; Z91.14 Patient's other noncompliance with medication regimen; F31.9 Bipolar disorder, unspecified; F41.0 Panic disorder [episodic paroxysmal anxiety]; F60.0 Paranoid personality disorder; N39.0 Urinary tract infection, site not specified; F17.210 Nicotine dependence, cigarettes, uncomplicated; F15.90 Other stimulant use, unspecified, uncomplicated; F11.90 Opioid use, unspecified, uncomplicated; F41.9 Anxiety disorder, unspecified; Z91.19 Patient's noncompliance with other medical treatment and regimen; Z91.5 Personal history of self-harm
CPT/HCPCS: 87086; 96372; G0480; J1200; J1630; J2060

== ENCOUNTER 2018-09-01 22:39 | Emergency (ER) | payer MEDICAID ==
[~2018-09-01] VITALS: Ht 157.5 cm; Wt 68.2 kg
[~2018-09-01 22:39] MED LIST changes: +FLUO-191 PO; +HALO10 PO; -HYDR50CA10 PO; +MACR100 PO; -MIRT15TA98 PO; -OLAN5TAB2 PO; -RISP2TAB76 PO; +TRAZ-219 PO
[2018-09-01 23:15] LABS: BASOPHILS % (AUTO) 0.3 % (0.0-2.0); HEMATOCRIT 40.8 % (36-46); LYMPHOCYTES # (AUTO) 2.6 K/uL (1.0-4.8); LYMPHOCYTES % (AUTO) 39.9 % (22.0-44.0); MEAN CORPUSCULAR HEMOGLOBIN 29.3 pg (26.0-34.0); MEAN CORPUSCULAR HGB CONC 34.2 G/dL (31.0-37.0); MEAN CORPUSCULAR VOLUME 86 fL (80-100); MONOCYTES # (AUTO) 0.4 K/uL (0.1-1.0); MONOCYTES % (AUTO) 6.6 % (2.0-9.0); NEUTROPHILS # (AUTO) 3.4 K/uL (1.8-7.7); NEUTROPHILS % (AUTO) 52.2 % (40.0-70.0); PLATELET COUNT (AUTO) 206 K/uL (150-450); RED BLOOD CELL COUNT(AUTO) 4.76 MIL/uL (4.00-5.20); RED CELL DISTRIBUTION WIDTH 12.6 % (11.5-14.5)
[2018-09-01 23:26] LABS: ANION GAP 7 mmol/L (8-16); CALCIUM, TOTAL 9.2 mg/dL (8.8-10.5); CARBON DIOXIDE 28 mmol/L (22-29); CHLORIDE 106 mmol/L (98-107); CREATININE 0.83 mg/dL (0.60-1.30); GLOMERULAR FILTR. RATE CALC > 60 mL/min (>60); GLUCOSE,RANDOM 93 mg/dL (70-110); SODIUM SERUM 141 mmol/L (136-145); UREA NITROGEN, BLOOD 15 mg/dL (7-18)
[2018-09-01 23:32] LABS: ALANINE AMINOTRANSFERASE 21 U/L (12-78); ALBUMIN 3.6 g/dL (3.4-5.0); ALKALINE PHOSPHATASE 68 U/L (46-116); ASPARTATE AMINOTRANSFERASE 14 U/L (15-37); BILIRUBIN,TOTAL 0.3 mg/dL (0.1-1.0); TOTAL PROTEIN, SERUM 7.6 g/dL (6.4-8.2)
[2018-09-02 04:41] VITALS: BP 118/70
== END 2018-09-02 04:57 | disposition home or self-care (01) ==
LOC: EMS 22:41
DX: F25.9 Schizoaffective disorder, unspecified (principal); F31.9 Bipolar disorder, unspecified; F17.210 Nicotine dependence, cigarettes, uncomplicated; F11.90 Opioid use, unspecified, uncomplicated; F15.90 Other stimulant use, unspecified, uncomplicated; Z79.899 Other long term (current) drug therapy
CPT/HCPCS: 36415; 80053; 84702; 85025; 99284; 99406; G0480

== ENCOUNTER 2018-11-10 15:55 | Inpatient (IN) | payer MEDICAID ==
[~2018-11-10] VITALS: Ht 162.6 cm; Wt 67.9 kg
[~2018-11-10 15:55] MED LIST changes: -TRAZ-219 PO; +TRAZ-252 PO
[2018-11-10] MEDS ORDERED: ZOLPIDEM TARTRATE 10 MG TABLET PO PRN (18:45)
[2018-11-10 19:33] VITALS: BP 118/85
[2018-11-10] MEDS: LORazepam 2 MG TABLET PO PRN (20:49)
[2018-11-10] MEDS: HALOPERIDOL 5 MG TABLET PO PRN (20:49)
[2018-11-11 04:10] VITALS: BP 113/64
[2018-11-11 08:21] VITALS: BP 100/64
[2018-11-11] MEDS: NICOTINE 14 MG/24 HOUR PATCH TD SCH (08:33)
[2018-11-11] MEDS: LORazepam 2 MG TABLET PO PRN (09:25)
[2018-11-11] MEDS: HALOPERIDOL 5 MG TABLET PO PRN (09:25)
[2018-11-11] MEDS: FLUoxetine HCL 20 MG CAPSULE PO SCH (12:57)
[2018-11-11 16:35] VITALS: BP 100/60
[2018-11-11] MEDS: HALOPERIDOL 10 MG TABLET PO SCH (20:50)
[2018-11-11] MEDS: TraZODone HCL 50 MG TABLET PO SCH (20:50)
[2018-11-12 00:20] VITALS: BP 121/62
[2018-11-12 08:40] VITALS: BP 100/60
[2018-11-12] MEDS: FLUoxetine HCL 20 MG CAPSULE PO SCH (08:44)
[2018-11-12] MEDS: NICOTINE 14 MG/24 HOUR PATCH TD SCH (08:44)
[2018-11-12 11:54] VITALS: BP 115/68
[2018-11-12] MEDS: HALOPERIDOL 5 MG TABLET PO PRN (11:56)
[2018-11-12] MEDS: LORazepam 2 MG TABLET PO PRN (11:56)
[2018-11-12] MEDS: HALOPERIDOL 10 MG TABLET PO SCH (20:14)
[2018-11-12] MEDS: TraZODone HCL 50 MG TABLET PO SCH (20:14)
[2018-11-13 06:01] VITALS: BP 110/76
[2018-11-13] MEDS: NICOTINE 14 MG/24 HOUR PATCH TD SCH (09:09)
[2018-11-13] MEDS: FLUoxetine HCL 20 MG CAPSULE PO SCH (09:09)
[2018-11-13] MEDS ORDERED: TUBERCULIN, PURIFIED PROTEIN DERIVATIVE 5 TU/0.1 ML SYRINGE ID ONE (13:15)
[2018-11-13 16:00] VITALS: BP 112/66
[2018-11-13] MEDS: HALOPERIDOL 5 MG TABLET PO PRN (17:43)
[2018-11-13] MEDS: LORazepam 2 MG TABLET PO PRN (17:43)
[2018-11-13] MEDS: TraZODone HCL 50 MG TABLET PO SCH (21:30)
[2018-11-13] MEDS: HALOPERIDOL 10 MG TABLET PO SCH (21:41)
[2018-11-14 01:44] VITALS: BP 114/65
[2018-11-14] MEDS: FLUoxetine HCL 20 MG CAPSULE PO SCH (09:24)
[2018-11-14] MEDS: NICOTINE 14 MG/24 HOUR PATCH TD SCH (09:25)
[2018-11-14] MEDS: HALOPERIDOL 5 MG TABLET PO PRN (13:15)
[2018-11-14] MEDS: LORazepam 2 MG TABLET PO PRN ×2 (13:16→21:20)
[2018-11-14 16:10] VITALS: BP 100/60
[2018-11-14] MEDS: TraZODone HCL 50 MG TABLET PO SCH (21:20)
[2018-11-14] MEDS: HALOPERIDOL 10 MG TABLET PO SCH (21:20)
[2018-11-15 06:11] VITALS: BP 102/58
[2018-11-15 08:10] LABS: BASOPHILS % (AUTO) 0.7 % (0.0-2.0); EOSINOPHILS % (AUTO) 2.5 % (1.0-6.0); HEMATOCRIT 40.4 % (36-46); HEMOGLOBIN 13.5 g/dL (12.0-16.0); LYMPHOCYTES # (AUTO) 2.6 K/uL (1.0-4.8); LYMPHOCYTES % (AUTO) 45.6 % (22.0-44.0); MEAN CORPUSCULAR HEMOGLOBIN 30.2 pg (26.0-34.0); MEAN CORPUSCULAR HGB CONC 33.5 G/dL (31.0-37.0); MEAN CORPUSCULAR VOLUME 90 fL (80-100); MONOCYTES # (AUTO) 0.4 K/uL (0.1-1.0); NEUTROPHILS # (AUTO) 2.5 K/uL (1.8-7.7); NEUTROPHILS % (AUTO) 44.2 % (40.0-70.0); PLATELET COUNT (AUTO) 226 K/uL (150-450); RED BLOOD CELL COUNT(AUTO) 4.47 MIL/uL (4.00-5.20)
[2018-11-15 08:26] VITALS: BP 94/60
[2018-11-15 08:37] LABS: ALANINE AMINOTRANSFERASE 17 U/L (12-78); ALBUMIN 3.3 g/dL (3.4-5.0); ALKALINE PHOSPHATASE 63 U/L (46-116); ANION GAP 9 mmol/L (8-16); ASPARTATE AMINOTRANSFERASE 14 U/L (15-37); BILIRUBIN,TOTAL 0.3 mg/dL (0.1-1.0); CALCIUM, TOTAL 9.2 mg/dL (8.8-10.5); CARBON DIOXIDE 29 mmol/L (22-29); CHLORIDE 103 mmol/L (98-107); CHOLESTEROL 156 mg/dL (131-200); CREATININE 0.95 mg/dL (0.60-1.30); GLOMERULAR FILTR. RATE CALC > 60 mL/min (>60); GLUCOSE,RANDOM 78 mg/dL (70-110); HDL CHOLESTEROL 39 mg/dL (40-60); LDL CHOL (CALC.) 103 mg/dL (0-130); POTASSIUM 3.9 mmol/L (3.5-5.1); SODIUM SERUM 141 mmol/L (136-145); TOTAL PROTEIN, SERUM 7.2 g/dL (6.4-8.2); TRIGLYCERIDES 68 mg/dL (15-150); UREA NITROGEN, BLOOD 10 mg/dL (7-18)
[2018-11-15] MEDS: LORazepam 2 MG TABLET PO PRN ×2 (09:06→18:12)
[2018-11-15] MEDS: HALOPERIDOL 5 MG TABLET PO PRN ×2 (09:06→18:12)
[2018-11-15] MEDS: FLUoxetine HCL 20 MG CAPSULE PO SCH (09:07)
[2018-11-15] MEDS: NICOTINE 14 MG/24 HOUR PATCH TD SCH (09:07)
[2018-11-15 16:12] VITALS: BP 128/73
[2018-11-15] MEDS: HALOPERIDOL 10 MG TABLET PO SCH (20:50)
[2018-11-15] MEDS: TraZODone HCL 50 MG TABLET PO SCH (20:50)
[2018-11-16 05:38] VITALS: BP 115/91
[2018-11-16] MEDS: LORazepam 2 MG TABLET PO PRN ×3 (08:38→17:14)
[2018-11-16] MEDS: FLUoxetine HCL 20 MG CAPSULE PO SCH (09:03)
[2018-11-16] MEDS: NICOTINE 14 MG/24 HOUR PATCH TD SCH (09:03)
[2018-11-16 16:11] VITALS: BP 119/68
[2018-11-16] MEDS: HALOPERIDOL 5 MG TABLET PO PRN (19:20)
[2018-11-16] MEDS: HALOPERIDOL 10 MG TABLET PO SCH (20:02)
[2018-11-16] MEDS: TraZODone HCL 50 MG TABLET PO SCH (20:02)
[2018-11-17 00:14] VITALS: BP 100/60
[2018-11-17 08:25] VITALS: BP 99/56
[2018-11-17] MEDS: FLUoxetine HCL 20 MG CAPSULE PO SCH (08:36)
[2018-11-17] MEDS: NICOTINE 14 MG/24 HOUR PATCH TD SCH (08:36)
[2018-11-17] MEDS ORDERED: HALO10 PO (10:31)
[2018-11-17] MEDS ORDERED: TRAZ-252 PO (10:31)
[2018-11-17] MEDS ORDERED: FLUO-191 PO (10:31)
== END 2018-11-17 16:35 | disposition home or self-care (01) | DRG 750 ==
LOC: B2X 18:58
DX: F25.0 Schizoaffective disorder, bipolar type (principal); R45.851 Suicidal ideations; F15.20 Other stimulant dependence, uncomplicated; F17.210 Nicotine dependence, cigarettes, uncomplicated; Z59.0 Homelessness; Z79.899 Other long term (current) drug therapy
CPT/HCPCS: 87081

== ENCOUNTER 2019-02-15 08:49 | Inpatient (IN) | payer MEDICAID ==
[~2019-02-15] VITALS: Ht 167.6 cm; Wt 54.4 kg
[~2019-02-15 08:49] MED LIST changes: -MACR100 PO; -TRAZ-252 PO
[2019-02-15 09:02] VITALS: BP 117/65
[2019-02-15] MEDS ORDERED: ZOLPIDEM TARTRATE 10 MG TABLET PO PRN (09:15)
[2019-02-15] MEDS ORDERED: HALOPERIDOL 5 MG TABLET PO PRN (09:15)
[2019-02-15] MEDS: LORazepam 2 MG TABLET PO PRN (10:55)
[2019-02-15] MEDS ORDERED: MAGNESIUM HYDROXIDE SUSPENSION 30 ML UDCUP PO PRN (11:30)
[2019-02-15] MEDS ORDERED: DOCUSATE SODIUM 100 MG CAPSULE PO PRN (11:30)
[2019-02-15] MEDS ORDERED: ACETAMINOPHEN 325 MG TABLET PO PRN (11:30)
[2019-02-15] MEDS ORDERED: MAG HYDROX/AL HYDROX/SIMETH ES 30 ML SUSPENSION UDCUP PO PRN (11:30)
[2019-02-15] MEDS ORDERED: GuaiFENesin/D-METHORPHAN [SUGAR-FREE] 200-20MG/10 ML SYRUP UDCUP PO PRN (11:30)
[2019-02-15] MEDS ORDERED: PETROLATUM,WHITE 28 GM JELLY TP PRN (11:30)
[2019-02-15] MEDS ORDERED: ONDANSETRON HCL 4 MG TABLET PO PRN (11:30)
[2019-02-15] MEDS ORDERED: LOPERAMIDE HCL 2 MG CAPSULE PO PRN (11:30)
[2019-02-15] MEDS ORDERED: CloNIDine HCL 0.1 MG TABLET PO PRN (11:30)
[2019-02-15] MEDS ORDERED: ALBUTEROL SULFATE HFA 90 MCG/PUFF 8 GM INHALER IH PRN (11:30)
[2019-02-15] MEDS ORDERED: NICOTINE 14 MG/24 HOUR PATCH TD PRN (11:30)
[2019-02-15] MEDS ORDERED: IBUPROFEN 400 MG TABLET PO PRN (11:30)
[2019-02-15] MEDS ORDERED: INFLUENZA VIRUS VACCINE QVS 2019-20 (3YR+)/PF 60 MCG/0.5 ML SYRINGE IM ONE (11:45)
[2019-02-15 16:09] VITALS: BP 123/74
[2019-02-16 06:38] VITALS: BP 117/72
[2019-02-16] MEDS: NICOTINE 14 MG/24 HOUR PATCH TD SCH (08:14)
[2019-02-16 16:00] VITALS: BP 112/96
[2019-02-16] MEDS: LORazepam 2 MG TABLET PO PRN (16:52)
[2019-02-16] MEDS: HALOPERIDOL 10 MG TABLET PO SCH (21:03)
[2019-02-17 08:15] VITALS: BP 104/71
[2019-02-17] MEDS: NICOTINE 14 MG/24 HOUR PATCH TD SCH (10:07)
[2019-02-17] MEDS: FLUoxetine HCL 20 MG CAPSULE PO SCH (10:07)
[2019-02-17] MEDS: LORazepam 2 MG TABLET PO PRN (10:11)
[2019-02-17 16:14] VITALS: BP 100/58
[2019-02-17 19:05] VITALS: BP 104/62
[2019-02-17] MEDS: HALOPERIDOL 10 MG TABLET PO SCH (20:33)
[2019-02-18] MEDS: NICOTINE 14 MG/24 HOUR PATCH TD SCH (09:56)
[2019-02-18] MEDS: FLUoxetine HCL 20 MG CAPSULE PO SCH (09:56)
[2019-02-18 16:05] VITALS: BP 104/66
[2019-02-18] MEDS: HALOPERIDOL 10 MG TABLET PO SCH (20:12)
[2019-02-19 05:35] VITALS: BP 112/73
[2019-02-19] MEDS: NICOTINE 14 MG/24 HOUR PATCH TD SCH (09:05)
[2019-02-19] MEDS: FLUoxetine HCL 20 MG CAPSULE PO SCH (09:05)
== END 2019-02-19 13:15 | disposition home or self-care (01) | DRG 750 ==
LOC: B3A 09:20
PROVIDERS: ADMIT Psychiatry & Neurology Psychiatry; ATTEND Psychiatry & Neurology Psychiatry
DX: F25.0 Schizoaffective disorder, bipolar type (principal); R45.851 Suicidal ideations; Z59.0 Homelessness; K21.9 Gastro-esophageal reflux disease without esophagitis; F17.200 Nicotine dependence, unspecified, uncomplicated; Z53.20 Procedure and treatment not carried out because of patient's decision for unspecified reasons

== ENCOUNTER 2019-02-21 08:54 | Inpatient (IN) | payer MEDICAID ==
[~2019-02-21] VITALS: Ht 165.1 cm; Wt 55.0 kg
[2019-02-21 11:42] LABS: BASOPHILS % (AUTO) 0.3 % (0.0-2.0); EOSINOPHILS % (AUTO) 0.4 % (1.0-6.0); HEMATOCRIT 43.4 % (36-46); HEMOGLOBIN 14.8 g/dL (12.0-16.0); LYMPHOCYTES # (AUTO) 1.7 K/uL (1.0-4.8); MEAN CORPUSCULAR HEMOGLOBIN 29.3 pg (26.0-34.0); MEAN CORPUSCULAR HGB CONC 34.1 G/dL (31.0-37.0); MEAN CORPUSCULAR VOLUME 86 fL (80-100); MONOCYTES # (AUTO) 0.5 K/uL (0.1-1.0); NEUTROPHILS # (AUTO) 5.5 K/uL (1.8-7.7); NEUTROPHILS % (AUTO) 70.3 % (40.0-70.0); PLATELET COUNT (AUTO) 258 K/uL (150-450); RED BLOOD CELL COUNT(AUTO) 5.05 MIL/uL (4.00-5.20); RED CELL DISTRIBUTION WIDTH 12.6 % (11.5-14.5)
[2019-02-21 11:57] LABS: ALANINE AMINOTRANSFERASE 20 U/L (12-78); ALKALINE PHOSPHATASE 63 U/L (46-116); ANION GAP 10 mmol/L (8-16); ASPARTATE AMINOTRANSFERASE 20 U/L (15-37); BILIRUBIN,TOTAL 0.8 mg/dL (0.1-1.0); CALCIUM, TOTAL 9.9 mg/dL (8.8-10.5); CARBON DIOXIDE 26 mmol/L (22-29); CHLORIDE 100 mmol/L (98-107); CREATININE 0.79 mg/dL (0.60-1.30); GLOMERULAR FILTR. RATE CALC > 60 mL/min (>60); GLUCOSE,RANDOM 84 mg/dL (70-110); HCG,QUANTITATIVE < 1 mIU/mL (0-6); POTASSIUM 4.4 mmol/L (3.5-5.1); SODIUM SERUM 136 mmol/L (136-145); TOTAL PROTEIN, SERUM 8.3 g/dL (6.4-8.2)
[2019-02-21 11:58] LABS: AMPHET/METH SCREEN,URINE NEGATIVE (NEGATIVE); BARBITURATE SCREEN, URINE NEGATIVE (NEGATIVE); BENZODIAZEPINES SCREEN,URINE NEGATIVE (NEGATIVE); CANNABINOID SCREEN,URINE NEGATIVE (NEGATIVE); COCAINE SCREEN,URINE NEGATIVE (NEGATIVE); METHADONE SCREEN, URINE NEGATIVE (NEGATIVE); OPIATE SCREEN,URINE NEGATIVE (NEGATIVE)
[2019-02-21 11:59] LABS: PHENCYCLIDINE SCREEN,URINE NEGATIVE (NEGATIVE)
[2019-02-21 12:05] LABS: UREA NITROGEN, BLOOD 11 mg/dL (7-18)
[2019-02-21] MEDS ORDERED: LORazepam 1 MG TABLET PO ONE (13:00)
[2019-02-21] MEDS ORDERED: ZOLPIDEM TARTRATE 10 MG TABLET PO PRN (13:15)
[2019-02-21 15:12] VITALS: BP 99/62
[2019-02-21 15:16] VITALS: BP 99/62
[2019-02-21 18:00] VITALS: BP 105/67
[2019-02-21] MEDS ORDERED: INFLUENZA VIRUS VACCINE QVS 2019-20 (3YR+)/PF 60 MCG/0.5 ML SYRINGE IM ONE (20:00)
[2019-02-21] MEDS: HALOPERIDOL 10 MG TABLET PO SCH (20:55)
[2019-02-22 06:27] VITALS: BP 98/48
[2019-02-22 08:09] VITALS: BP 96/63
[2019-02-22] MEDS: OMEPRAZOLE 20 MG CAPSULE PO SCH ×2 (08:51→08:58)
[2019-02-22] MEDS: FLUoxetine HCL 20 MG CAPSULE PO SCH (08:51)
[2019-02-22 16:55] VITALS: BP 87/49
[2019-02-22] MEDS: HALOPERIDOL 10 MG TABLET PO SCH (20:42)
[2019-02-23] MEDS: FLUoxetine HCL 20 MG CAPSULE PO SCH (09:17)
[2019-02-23] MEDS: OMEPRAZOLE 20 MG CAPSULE PO SCH (09:17)
[2019-02-23 09:24] VITALS: BP 112/65
[2019-02-23] MEDS: LORazepam 2 MG TABLET PO PRN (12:56)
[2019-02-23 18:11] VITALS: BP 137/88
[2019-02-23] MEDS: HALOPERIDOL 10 MG TABLET PO SCH (20:58)
[2019-02-24] MEDS: OMEPRAZOLE 20 MG CAPSULE PO SCH (09:08)
[2019-02-24] MEDS: FLUoxetine HCL 20 MG CAPSULE PO SCH (09:08)
[2019-02-24] MEDS: LORazepam 2 MG TABLET PO PRN (13:55)
[2019-02-24] MEDS: HALOPERIDOL 5 MG TABLET PO PRN (17:03)
[2019-02-24 17:12] VITALS: BP 101/71
[2019-02-24] MEDS: HALOPERIDOL 10 MG TABLET PO SCH (20:21)
[2019-02-25] MEDS: FLUoxetine HCL 20 MG CAPSULE PO SCH (08:58)
[2019-02-25] MEDS: OMEPRAZOLE 20 MG CAPSULE PO SCH (08:58)
[2019-02-25] MEDS: LORazepam 2 MG TABLET PO PRN (15:52)
[2019-02-25] MEDS: HALOPERIDOL 5 MG TABLET PO PRN (15:52)
[2019-02-25 18:39] VITALS: BP 84/44
[2019-02-25] MEDS: HALOPERIDOL 10 MG TABLET PO SCH (20:13)
[2019-02-26 09:08] VITALS: BP 92/46
[2019-02-26] MEDS: FLUoxetine HCL 20 MG CAPSULE PO SCH (09:51)
[2019-02-26] MEDS: OMEPRAZOLE 20 MG CAPSULE PO SCH (09:51)
[2019-02-26] MEDS: LORazepam 2 MG TABLET PO PRN ×2 (13:56→20:35)
[2019-02-26] MEDS: HALOPERIDOL 10 MG TABLET PO SCH (20:35)
[2019-02-27 08:00] VITALS: BP 105/63
[2019-02-27] MEDS: OMEPRAZOLE 20 MG CAPSULE PO SCH (10:51)
[2019-02-27] MEDS: FLUoxetine HCL 20 MG CAPSULE PO SCH (10:51)
[2019-02-27] MEDS: LORazepam 2 MG TABLET PO PRN (13:25)
[2019-02-27] MEDS: HALOPERIDOL 5 MG TABLET PO PRN (13:25)
[2019-02-27 17:11] VITALS: BP 90/54
[2019-02-27] MEDS: HALOPERIDOL 10 MG TABLET PO SCH (20:26)
[2019-02-28 09:24] VITALS: BP 120/87
[2019-02-28] MEDS: HALOPERIDOL 5 MG TABLET PO PRN (10:19)
[2019-02-28] MEDS: OMEPRAZOLE 20 MG CAPSULE PO SCH (10:19)
[2019-02-28] MEDS: FLUoxetine HCL 20 MG CAPSULE PO SCH (10:19)
[2019-02-28] MEDS: LORazepam 2 MG TABLET PO PRN (10:19)
[2019-02-28 17:00] VITALS: BP 92/55
[2019-02-28] MEDS ORDERED: ALBUTEROL SULFATE HFA 90 MCG/PUFF 8 GM INHALER IH PRN (20:00)
[2019-02-28] MEDS ORDERED: MAG HYDROX/AL HYDROX/SIMETH ES 30 ML SUSPENSION UDCUP PO PRN (20:00)
[2019-02-28] MEDS ORDERED: MAGNESIUM HYDROXIDE SUSPENSION 30 ML UDCUP PO PRN (20:00)
[2019-02-28] MEDS ORDERED: LOPERAMIDE HCL 2 MG CAPSULE PO PRN (20:00)
[2019-02-28] MEDS ORDERED: IBUPROFEN 400 MG TABLET PO PRN (20:00)
[2019-02-28] MEDS ORDERED: ONDANSETRON HCL 4 MG TABLET PO PRN (20:00)
[2019-02-28] MEDS ORDERED: PETROLATUM,WHITE 28 GM JELLY TP PRN (20:00)
[2019-02-28] MEDS ORDERED: NICOTINE 14 MG/24 HOUR PATCH TD PRN (20:00)
[2019-02-28] MEDS ORDERED: ACETAMINOPHEN 325 MG TABLET PO PRN (20:00)
[2019-02-28] MEDS ORDERED: DOCUSATE SODIUM 100 MG CAPSULE PO PRN (20:00)
[2019-02-28] MEDS ORDERED: CloNIDine HCL 0.1 MG TABLET PO PRN (20:00)
[2019-02-28] MEDS ORDERED: GuaiFENesin/D-METHORPHAN [SUGAR-FREE] 200-20MG/10 ML SYRUP UDCUP PO PRN (20:00)
[2019-02-28] MEDS: HALOPERIDOL 10 MG TABLET PO SCH (20:49)
[2019-03-01] MEDS: FLUoxetine HCL 20 MG CAPSULE PO SCH (09:06)
[2019-03-01] MEDS: OMEPRAZOLE 20 MG CAPSULE PO SCH (09:06)
[2019-03-01 10:39] VITALS: BP 93/55
[2019-03-01] MEDS: LORazepam 2 MG TABLET PO PRN (16:20)
[2019-03-01 16:58] VITALS: BP 118/62
[2019-03-01] MEDS: HALOPERIDOL 10 MG TABLET PO SCH (20:33)
[2019-03-02 08:29] VITALS: BP 90/50
[2019-03-02] MEDS: OMEPRAZOLE 20 MG CAPSULE PO SCH (08:32)
[2019-03-02] MEDS: FLUoxetine HCL 20 MG CAPSULE PO SCH (08:32)
[2019-03-02] MEDS: LORazepam 2 MG TABLET PO PRN (16:45)
[2019-03-02] MEDS: HALOPERIDOL 5 MG TABLET PO PRN (16:45)
[2019-03-02 16:54] VITALS: BP 100/65
[2019-03-02] MEDS: HALOPERIDOL 10 MG TABLET PO SCH (20:45)
[2019-03-03 08:30] VITALS: BP 99/60
[2019-03-03] MEDS: OMEPRAZOLE 20 MG CAPSULE PO SCH (09:22)
[2019-03-03] MEDS: FLUoxetine HCL 20 MG CAPSULE PO SCH (09:22)
[2019-03-03] MEDS: LORazepam 2 MG TABLET PO PRN ×2 (14:02→23:03)
[2019-03-03 16:15] VITALS: BP 102/66
[2019-03-03] MEDS: HALOPERIDOL 10 MG TABLET PO SCH (20:28)
[2019-03-04 08:30] VITALS: BP 91/53
[2019-03-04] MEDS: FLUoxetine HCL 20 MG CAPSULE PO SCH (08:34)
[2019-03-04] MEDS: OMEPRAZOLE 20 MG CAPSULE PO SCH (08:34)
[2019-03-04] MEDS: LORazepam 2 MG TABLET PO PRN ×3 (08:36→17:15)
[2019-03-04 13:13] VITALS: BP 115/74
[2019-03-04 16:55] VITALS: BP 94/59
[2019-03-04 17:15] VITALS: BP 98/71
[2019-03-04] MEDS: HALOPERIDOL 10 MG TABLET PO SCH (20:44)
[2019-03-05] MEDS: OMEPRAZOLE 20 MG CAPSULE PO SCH (08:12)
[2019-03-05] MEDS: LORazepam 2 MG TABLET PO PRN ×2 (08:12→13:02)
[2019-03-05] MEDS: FLUoxetine HCL 20 MG CAPSULE PO SCH (08:12)
[2019-03-05 09:19] VITALS: BP 94/50
[2019-03-05 19:19] VITALS: BP 102/64
[2019-03-05] MEDS: HALOPERIDOL 10 MG TABLET PO SCH (21:15)
[2019-03-06 08:00] VITALS: BP 118/73
[2019-03-06] MEDS: OMEPRAZOLE 20 MG CAPSULE PO SCH (08:35)
[2019-03-06] MEDS: FLUoxetine HCL 20 MG CAPSULE PO SCH (08:35)
[2019-03-06] MEDS: LORazepam 2 MG TABLET PO PRN ×2 (11:17→16:20)
[2019-03-06 16:16] VITALS: BP 120/70
[2019-03-06] MEDS: HALOPERIDOL 5 MG TABLET PO PRN (16:20)
[2019-03-06] MEDS: HALOPERIDOL 10 MG TABLET PO SCH (20:11)
[2019-03-07 08:00] VITALS: BP 98/64
[2019-03-07] MEDS: OMEPRAZOLE 20 MG CAPSULE PO SCH (08:51)
[2019-03-07] MEDS: FLUoxetine HCL 20 MG CAPSULE PO SCH (08:51)
[2019-03-07] MEDS: LORazepam 2 MG TABLET PO PRN ×2 (08:56→16:07)
[2019-03-07 09:23] VITALS: BP 98/64
[2019-03-07 16:05] VITALS: BP 102/65
[2019-03-07] MEDS: HALOPERIDOL 5 MG TABLET PO PRN (16:07)
[2019-03-07] MEDS: HALOPERIDOL 10 MG TABLET PO SCH (20:25)
[2019-03-08] MEDS: OMEPRAZOLE 20 MG CAPSULE PO SCH (08:44)
[2019-03-08] MEDS: FLUoxetine HCL 20 MG CAPSULE PO SCH (08:44)
[2019-03-08] MEDS: LORazepam 2 MG TABLET PO PRN ×2 (08:52→16:04)
[2019-03-08 10:36] VITALS: BP 108/70
[2019-03-08 16:02] VITALS: BP 113/72
[2019-03-08] MEDS: HALOPERIDOL 10 MG TABLET PO SCH (20:37)
[2019-03-09 08:39] VITALS: BP 108/54
[2019-03-09] MEDS: OMEPRAZOLE 20 MG CAPSULE PO SCH (09:40)
[2019-03-09] MEDS: FLUoxetine HCL 20 MG CAPSULE PO SCH (09:40)
[2019-03-09 16:22] VITALS: BP 97/61
[2019-03-09] MEDS: HALOPERIDOL 5 MG TABLET PO PRN (16:40)
[2019-03-09] MEDS: HALOPERIDOL 10 MG TABLET PO SCH (20:28)
[2019-03-10] MEDS: OMEPRAZOLE 20 MG CAPSULE PO SCH (08:20)
[2019-03-10] MEDS: FLUoxetine HCL 20 MG CAPSULE PO SCH (08:20)
[2019-03-10] MEDS: HALOPERIDOL 5 MG TABLET PO PRN ×2 (08:22→21:37)
[2019-03-10] MEDS ORDERED: HydrOXYzine PAMOATE 50 MG CAPSULE ONE (11:41)
[2019-03-10] MEDS: HydrOXYzine PAMOATE 50 MG CAPSULE PO PRN ×2 (11:43→19:47)
[2019-03-10] MEDS: HALOPERIDOL 10 MG TABLET PO SCH (20:33)
[2019-03-10 21:30] VITALS: BP 109/69
[2019-03-11 01:43] VITALS: BP 124/81
[2019-03-11] MEDS: HydrOXYzine PAMOATE 50 MG CAPSULE PO PRN ×3 (02:17→17:20)
[2019-03-11 08:41] VITALS: BP 127/75
[2019-03-11] MEDS: OMEPRAZOLE 20 MG CAPSULE PO SCH (09:08)
[2019-03-11] MEDS: FLUoxetine HCL 20 MG CAPSULE PO SCH (09:08)
[2019-03-11] MEDS: HALOPERIDOL 5 MG TABLET PO PRN ×2 (09:09→17:20)
[2019-03-11] MEDS ORDERED: HALOPERIDOL LACTATE 5 MG/ML VIAL IM ONE (10:30)
[2019-03-11] MEDS ORDERED: LORazepam 2 MG/ML VIAL IM ONE (10:30)
[2019-03-11] MEDS ORDERED: DiphenhydrAMINE HCL 50 MG/ML VIAL IM ONE (10:30)
[2019-03-11 17:19] VITALS: BP 105/60
[2019-03-11] MEDS: HALOPERIDOL 10 MG TABLET PO SCH (20:35)
[2019-03-12] MEDS: OMEPRAZOLE 20 MG CAPSULE PO SCH (08:32)
[2019-03-12] MEDS: FLUoxetine HCL 20 MG CAPSULE PO SCH (08:33)
[2019-03-12 10:22] VITALS: BP 116/72
[2019-03-12] MEDS: HydrOXYzine PAMOATE 50 MG CAPSULE PO PRN (11:31)
[2019-03-12] MEDS: HALOPERIDOL 5 MG TABLET PO PRN (11:31)
[2019-03-12] MEDS ORDERED: OMEP20 PO (15:55)
[2019-03-12 17:00] VITALS: BP 92/40
[2019-03-12 20:58] VITALS: BP 92/40
[2019-03-12] MEDS: HALOPERIDOL 10 MG TABLET PO SCH (22:14)
[2019-03-13] MEDS: FLUoxetine HCL 20 MG CAPSULE PO SCH (08:25)
[2019-03-13] MEDS: OMEPRAZOLE 20 MG CAPSULE PO SCH (08:25)
[2019-03-13 08:48] VITALS: BP 105/57
== END 2019-03-13 13:30 | disposition home or self-care (01) | DRG 750 ==
LOC: EMS 08:56 → 3EI 14:43
PROVIDERS: ADMIT Psychiatry & Neurology Psychiatry; ATTEND Psychiatry & Neurology Psychiatry
DX: F25.1 Schizoaffective disorder, depressive type (principal); Z59.0 Homelessness; F11.90 Opioid use, unspecified, uncomplicated; F17.210 Nicotine dependence, cigarettes, uncomplicated; F41.9 Anxiety disorder, unspecified; F19.10 Other psychoactive substance abuse, uncomplicated; G44.209 Tension-type headache, unspecified, not intractable; K21.9 Gastro-esophageal reflux disease without esophagitis; Z91.19 Patient's noncompliance with other medical treatment and regimen; Z71.6 Tobacco abuse counseling; Z71.89 Other specified counseling; Z28.21 Immunization not carried out because of patient refusal
CPT/HCPCS: 87081; 99406; G0480; J1200; J1630; J2060

== ENCOUNTER 2021-09-28 18:51 | Inpatient (IN) | payer MEDICAID, OTHER ==
[~2021-09-28] VITALS: Ht 167.6 cm; Wt 76.7 kg
[~2021-09-28 18:51] MED LIST changes: +FLUO-177 PO; -FLUO-191 PO; -HALO10 PO; +HALO10TA21 PO; +OMEP20 PO
[2021-09-28] MEDS ORDERED: ZOLPIDEM TARTRATE 10 MG TABLET PO PRN (19:45)
[2021-09-28] MEDS ORDERED: MAGNESIUM HYDROXIDE SUSPENSION 30 ML UDCUP PO PRN (19:45)
[2021-09-28] MEDS ORDERED: ACETAMINOPHEN 325 MG TABLET PO PRN (19:45)
[2021-09-28] MEDS ORDERED: LOPERAMIDE HCL 2 MG CAPSULE PO PRN (19:45)
[2021-09-28] MEDS ORDERED: TUBERCULIN, PURIFIED PROTEIN DERIVATIVE 5 TU/0.1 ML SYRINGE ID ONE (19:45)
[2021-09-28] MEDS ORDERED: HydrOXYzine PAMOATE 50 MG CAPSULE PO PRN (19:45)
[2021-09-28] MEDS ORDERED: PROMETHAZINE HCL 25 MG TABLET PO PRN (19:45)
[2021-09-28] MEDS ORDERED: GuaiFENesin/D-METHORPHAN [SUGAR-FREE] 200-20MG/10 ML SYRUP UDCUP PO PRN (19:45)
[2021-09-28] MEDS ORDERED: MAG HYDROX/AL HYDROX/SIMETH ES 30 ML SUSPENSION UDCUP PO PRN (19:45)
[2021-09-28] MEDS ORDERED: OLANZapine 5 MG RAPDIS TABLET PO PRN (19:45)
[2021-09-28] MEDS ORDERED: OLANZapine 5 MG RAPDIS TABLET PO SCH (21:00)
[2021-09-29 04:27] VITALS: BP 134/81
[2021-09-29] MEDS: OMEGA-3/DHA/EPA/FISH OIL 1,000 MG CAPSULE PO SCH (08:23)
[2021-09-29] MEDS: NALTREXONE HCL 50 MG TABLET PO SCH (08:24)
[2021-09-29] MEDS: MULTIVITAMINS WITH MINERALS, THERAPEUTIC TABLET PO SCH (08:24)
[2021-09-29] MEDS: FOLIC ACID 1 MG TABLET PO SCH (08:24)
[2021-09-29] MEDS: THIAMINE 100 MG TABLET PO SCH ×2 (08:24→16:15)
[2021-09-29] MEDS: LORazepam 2 MG TABLET PO PRN ×2 (08:24→20:50)
[2021-09-29] MEDS ORDERED: FLUoxetine HCL 20 MG CAPSULE PO SCH (09:00)
[2021-09-29 10:37] VITALS: BP 108/67
[2021-09-29] MEDS ORDERED: QUEtiapine FUMARATE 100 MG TABLET PO PRN (13:45)
[2021-09-29] MEDS: LITHIUM CARBONATE 300 MG CAPSULE PO SCH (16:15)
[2021-09-29 17:20] VITALS: BP 103/68
[2021-09-29] MEDS: DIVALPROEX SODIUM 500 MG ER TABLET PO SCH (20:50)
[2021-09-29] MEDS: MELATONIN 5 MG TABLET PO SCH (20:50)
[2021-09-29] MEDS ORDERED: QUEtiapine FUMARATE 200 MG TABLET PO SCH (21:00)
[2021-09-29 22:23] VITALS: BP 102/70
[2021-09-30 00:52] VITALS: BP 108/66
[2021-09-30] MEDS: LITHIUM CARBONATE 300 MG CAPSULE PO SCH ×3 (06:28→16:07)
[2021-09-30 08:24] VITALS: BP 114/68
[2021-09-30] MEDS: THIAMINE 100 MG TABLET PO SCH ×2 (09:01→16:07)
[2021-09-30] MEDS: NALTREXONE HCL 50 MG TABLET PO SCH (09:01)
[2021-09-30] MEDS: FOLIC ACID 1 MG TABLET PO SCH (09:01)
[2021-09-30] MEDS: MULTIVITAMINS WITH MINERALS, THERAPEUTIC TABLET PO SCH (09:01)
[2021-09-30] MEDS: OMEGA-3/DHA/EPA/FISH OIL 1,000 MG CAPSULE PO SCH (09:01)
[2021-09-30] MEDS: OMEPRAZOLE 20 MG CAPSULE PO SCH (09:03)
[2021-09-30] MEDS: LORazepam 2 MG TABLET PO PRN ×2 (09:08→20:20)
[2021-09-30 17:18] VITALS: BP 135/81
[2021-09-30] MEDS: MELATONIN 5 MG TABLET PO SCH (20:12)
[2021-09-30] MEDS: DIVALPROEX SODIUM 500 MG ER TABLET PO SCH (20:12)
[2021-09-30] MEDS ORDERED: QUEtiapine FUMARATE 300 MG TABLET PO SCH (21:00)
[2021-10-01 05:11] VITALS: BP 130/80
[2021-10-01] MEDS: LITHIUM CARBONATE 300 MG CAPSULE PO SCH ×3 (06:53→16:08)
[2021-10-01 08:22] VITALS: BP 124/69
[2021-10-01] MEDS: NALTREXONE HCL 50 MG TABLET PO SCH (08:24)
[2021-10-01] MEDS: MULTIVITAMINS WITH MINERALS, THERAPEUTIC TABLET PO SCH (08:24)
[2021-10-01] MEDS: OMEPRAZOLE 20 MG CAPSULE PO SCH (08:24)
[2021-10-01] MEDS: THIAMINE 100 MG TABLET PO SCH ×2 (08:24→16:08)
[2021-10-01] MEDS: FOLIC ACID 1 MG TABLET PO SCH (08:24)
[2021-10-01] MEDS: OMEGA-3/DHA/EPA/FISH OIL 1,000 MG CAPSULE PO SCH (08:24)
[2021-10-01 16:01] VITALS: BP 104/64
[2021-10-01] MEDS: DIVALPROEX SODIUM 500 MG ER TABLET PO SCH (20:03)
[2021-10-01] MEDS: QUEtiapine FUMARATE 200 MG TABLET PO SCH (20:04)
[2021-10-01] MEDS: MELATONIN 5 MG TABLET PO SCH (20:04)
[2021-10-01] MEDS: LORazepam 2 MG TABLET PO PRN (20:04)
[2021-10-02 00:50] VITALS: BP 100/72
[2021-10-02] MEDS: LITHIUM CARBONATE 300 MG CAPSULE PO SCH ×3 (06:44→16:54)
[2021-10-02 08:12] VITALS: BP 118/84
[2021-10-02] MEDS: NALTREXONE HCL 50 MG TABLET PO SCH (08:45)
[2021-10-02] MEDS: OMEPRAZOLE 20 MG CAPSULE PO SCH (08:45)
[2021-10-02] MEDS: LORazepam 2 MG TABLET PO PRN (08:45)
[2021-10-02] MEDS: FOLIC ACID 1 MG TABLET PO SCH (08:45)
[2021-10-02] MEDS: THIAMINE 100 MG TABLET PO SCH ×2 (08:45→16:54)
[2021-10-02] MEDS: MULTIVITAMINS WITH MINERALS, THERAPEUTIC TABLET PO SCH (08:45)
[2021-10-02] MEDS: OMEGA-3/DHA/EPA/FISH OIL 1,000 MG CAPSULE PO SCH (08:45)
[2021-10-02] MEDS ORDERED: TUBERCULIN, PURIFIED PROTEIN DERIVATIVE 5 TU/0.1 ML SYRINGE ID ONE (13:45)
[2021-10-02 16:41] VITALS: BP 122/78
[2021-10-02] MEDS: DIVALPROEX SODIUM 500 MG ER TABLET PO SCH (20:03)
[2021-10-02] MEDS: QUEtiapine FUMARATE 200 MG TABLET PO SCH (20:04)
[2021-10-02] MEDS: MELATONIN 5 MG TABLET PO SCH (20:04)
[2021-10-03 06:31] VITALS: BP 114/74
[2021-10-03] MEDS: LITHIUM CARBONATE 300 MG CAPSULE PO SCH ×3 (06:53→16:03)
[2021-10-03] MEDS: BuPROPion HCL XL 150 MG ER TABLET PO SCH (08:51)
[2021-10-03] MEDS: THIAMINE 100 MG TABLET PO SCH ×2 (08:51→16:03)
[2021-10-03] MEDS: NALTREXONE HCL 50 MG TABLET PO SCH (08:52)
[2021-10-03] MEDS: FOLIC ACID 1 MG TABLET PO SCH (08:52)
[2021-10-03] MEDS: OMEPRAZOLE 20 MG CAPSULE PO SCH (08:52)
[2021-10-03] MEDS: MULTIVITAMINS WITH MINERALS, THERAPEUTIC TABLET PO SCH (08:52)
[2021-10-03] MEDS: OMEGA-3/DHA/EPA/FISH OIL 1,000 MG CAPSULE PO SCH (08:53)
[2021-10-03] MEDS ORDERED: BuPROPion HCL XL 150 MG ER TABLET PO SCH (09:00)
[2021-10-03] MEDS: LORazepam 2 MG TABLET PO PRN ×2 (09:46→20:07)
[2021-10-03 10:22] VITALS: BP 110/76
[2021-10-03 16:13] VITALS: BP 112/64
[2021-10-03] MEDS: MELATONIN 5 MG TABLET PO SCH (20:07)
[2021-10-03] MEDS: DIVALPROEX SODIUM 500 MG ER TABLET PO SCH (20:07)
[2021-10-03] MEDS: QUEtiapine FUMARATE 200 MG TABLET PO SCH (20:07)
[2021-10-04 00:06] VITALS: BP 110/68
[2021-10-04] MEDS: LITHIUM CARBONATE 300 MG CAPSULE PO SCH ×3 (06:56→17:00)
[2021-10-04 08:04] VITALS: BP 118/76
[2021-10-04] MEDS: OMEPRAZOLE 20 MG CAPSULE PO SCH (08:43)
[2021-10-04] MEDS: BuPROPion HCL XL 150 MG ER TABLET PO SCH (08:43)
[2021-10-04] MEDS: MULTIVITAMINS WITH MINERALS, THERAPEUTIC TABLET PO SCH (08:43)
[2021-10-04] MEDS: OMEGA-3/DHA/EPA/FISH OIL 1,000 MG CAPSULE PO SCH (08:43)
[2021-10-04] MEDS: THIAMINE 100 MG TABLET PO SCH ×2 (08:43→17:00)
[2021-10-04] MEDS: NALTREXONE HCL 50 MG TABLET PO SCH (08:43)
[2021-10-04] MEDS: FOLIC ACID 1 MG TABLET PO SCH (08:43)
[2021-10-04 16:13] VITALS: BP 112/76
[2021-10-04] MEDS: LORazepam 2 MG TABLET PO PRN (16:16)
[2021-10-04] MEDS: QUEtiapine FUMARATE 200 MG TABLET PO SCH (20:06)
[2021-10-04] MEDS: DIVALPROEX SODIUM 500 MG ER TABLET PO SCH (20:07)
[2021-10-04] MEDS: MELATONIN 5 MG TABLET PO SCH (20:07)
[2021-10-05 00:19] VITALS: BP 110/71
[2021-10-05] MEDS: LITHIUM CARBONATE 300 MG CAPSULE PO SCH ×2 (06:46→12:06)
[2021-10-05 08:20] VITALS: BP 108/70
[2021-10-05] MEDS: FOLIC ACID 1 MG TABLET PO SCH (08:58)
[2021-10-05] MEDS: MULTIVITAMINS WITH MINERALS, THERAPEUTIC TABLET PO SCH (08:58)
[2021-10-05] MEDS: NALTREXONE HCL 50 MG TABLET PO SCH (08:58)
[2021-10-05] MEDS: OMEGA-3/DHA/EPA/FISH OIL 1,000 MG CAPSULE PO SCH (08:58)
[2021-10-05] MEDS: BuPROPion HCL XL 150 MG ER TABLET PO SCH (08:59)
[2021-10-05] MEDS: OMEPRAZOLE 20 MG CAPSULE PO SCH (08:59)
[2021-10-05] MEDS: THIAMINE 100 MG TABLET PO SCH (08:59)
[2021-10-05] MEDS: LORazepam 2 MG TABLET PO PRN (09:04)
[2021-10-05] MEDS ORDERED: DIVA-80 PO ×2 (14:14→14:31)
[2021-10-05] MEDS ORDERED: LITH300C3 PO ×2 (14:14→14:19)
[2021-10-05] MEDS ORDERED: BUPR-49 PO (14:19)
[2021-10-05] MEDS ORDERED: QUET200T30 PO (14:19)
[2021-10-05] MEDS ORDERED: OMEG-108 PO (14:19)
[2021-10-05] MEDS ORDERED: NALT50TA PO (14:19)
[2021-10-05] MEDS ORDERED: MELA5TAB40 PO (14:19)
== END 2021-10-05 15:30 | disposition home or self-care (01) | DRG 750 ==
LOC: B3A 19:31
PROVIDERS: ADMIT Psychiatry & Neurology Psychiatry; ATTEND Psychiatry & Neurology Psychiatry
DX: F25.0 Schizoaffective disorder, bipolar type (principal); R45.851 Suicidal ideations; F32.A Depression, unspecified; F41.0 Panic disorder [episodic paroxysmal anxiety]; F60.0 Paranoid personality disorder; J44.9 Chronic obstructive pulmonary disease, unspecified; K21.9 Gastro-esophageal reflux disease without esophagitis; Z20.822 Contact with and (suspected) exposure to COVID-19; Z55.9 Problems related to education and literacy, unspecified; Z59.9 Problem related to housing and economic circumstances, unspecified; Z63.9 Problem related to primary support group, unspecified; Z65.3 Problems related to other legal circumstances; Z87.891 Personal history of nicotine dependence
CPT/HCPCS: Q9967

== ENCOUNTER 2021-10-16 23:42 | Emergency (ER) | payer MEDICAID ==
[~2021-10-16] VITALS: Ht 170.2 cm; Wt 54.5 kg
[~2021-10-16 23:42] MED LIST changes: +BUPR-49 PO; +DIVA-80 PO; -FLUO-177 PO; -HALO10TA21 PO; +LITH300C3 PO; +MELA5TAB40 PO; +NALT50TA PO; +OMEG-108 PO; -OMEP20 PO; +QUET200T30 PO
[2021-10-17 04:43] VITALS: BP 126/73
== END 2021-10-17 05:09 | disposition home or self-care (01) ==
LOC: EMS 23:45
DX: M79.672 Pain in left foot (principal); M79.671 Pain in right foot; F31.9 Bipolar disorder, unspecified; F20.9 Schizophrenia, unspecified; F17.210 Nicotine dependence, cigarettes, uncomplicated; F15.90 Other stimulant use, unspecified, uncomplicated; F11.90 Opioid use, unspecified, uncomplicated
CPT/HCPCS: 99283; Z7502

== ENCOUNTER 2021-10-23 17:59 | Inpatient (IN) | payer MEDICAID ==
[~2021-10-23] VITALS: Ht 170.2 cm; Wt 72.5 kg
[2021-10-23] MEDS: LORazepam 2 MG/ML VIAL IM ONE ×2 (22:15→23:00)
[2021-10-23] MEDS: HALOPERIDOL LACTATE 5 MG/ML VIAL IM ONE ×2 (22:15→23:00)
[2021-10-23 22:21] LABS: COVID AG,FIA SOURCE NASAL SWAB
[2021-10-23] MEDS ORDERED: ZOLPIDEM TARTRATE 10 MG TABLET PO PRN (23:45)
[2021-10-23] MEDS ORDERED: HALOPERIDOL 5 MG TABLET PO PRN (23:45)
[2021-10-23] MEDS ORDERED: LORazepam 2 MG TABLET PO PRN (23:45)
[2021-10-24] MEDS ORDERED: ZOLPIDEM TARTRATE 5 MG TABLET PO PRN (14:30)
[2021-10-24] MEDS: MELATONIN 5 MG TABLET PO SCH (20:28)
[2021-10-24] MEDS: DIVALPROEX SODIUM 500 MG ER TABLET PO SCH (20:28)
[2021-10-24] MEDS: QUEtiapine FUMARATE 200 MG TABLET PO SCH (20:29)
[2021-10-25] MEDS: NALTREXONE HCL 50 MG TABLET PO SCH (09:00)
[2021-10-25] MEDS: BuPROPion HCL XL 150 MG ER TABLET PO SCH (09:00)
[2021-10-25] MEDS: MELATONIN 5 MG TABLET PO SCH (20:54)
[2021-10-25] MEDS: DIVALPROEX SODIUM 500 MG ER TABLET PO SCH (20:54)
[2021-10-25] MEDS: QUEtiapine FUMARATE 200 MG TABLET PO SCH (20:54)
[2021-10-26] MEDS: BuPROPion HCL XL 150 MG ER TABLET PO SCH ×2 (09:00→10:54)
[2021-10-26] MEDS: NALTREXONE HCL 50 MG TABLET PO SCH ×2 (09:00→10:54)
[2021-10-26] MEDS: QUEtiapine FUMARATE 200 MG TABLET PO SCH (20:07)
[2021-10-26] MEDS: DIVALPROEX SODIUM 500 MG ER TABLET PO SCH (20:07)
[2021-10-26] MEDS: MELATONIN 5 MG TABLET PO SCH (20:07)
[2021-10-27] MEDS: NALTREXONE HCL 50 MG TABLET PO SCH (09:00)
[2021-10-27] MEDS: BuPROPion HCL XL 150 MG ER TABLET PO SCH (09:00)
[2021-10-27] MEDS: DIVALPROEX SODIUM 500 MG ER TABLET PO SCH (21:00)
[2021-10-27] MEDS: MELATONIN 5 MG TABLET PO SCH (21:00)
[2021-10-27] MEDS: QUEtiapine FUMARATE 200 MG TABLET PO SCH (21:00)
[2021-10-28] MEDS ORDERED: GuaiFENesin/D-METHORPHAN [SUGAR-FREE] 200-20MG/10 ML SYRUP UDCUP PO PRN (03:15)
[2021-10-28] MEDS ORDERED: LOPERAMIDE HCL 2 MG CAPSULE PO PRN (03:15)
[2021-10-28] MEDS ORDERED: PROMETHAZINE HCL 25 MG TABLET PO PRN (03:15)
[2021-10-28] MEDS ORDERED: MAG HYDROX/AL HYDROX/SIMETH ES 30 ML SUSPENSION UDCUP PO PRN (03:15)
[2021-10-28] MEDS ORDERED: MAGNESIUM HYDROXIDE SUSPENSION 30 ML UDCUP PO PRN (03:15)
[2021-10-28] MEDS ORDERED: HydrOXYzine PAMOATE 50 MG CAPSULE PO PRN (03:15)
[2021-10-28] MEDS ORDERED: ACETAMINOPHEN 325 MG TABLET PO PRN (03:15)
[2021-10-28] MEDS ORDERED: TUBERCULIN, PURIFIED PROTEIN DERIVATIVE 5 TU/0.1 ML SYRINGE ID ONE (03:15)
[2021-10-28] MEDS ORDERED: PALIPERIDONE PALMITATE 234 MG/1.5 ML SYRINGE IM ONE ×2 (03:15→09:00)
[2021-10-28] MEDS: THIAMINE 100 MG TABLET PO SCH ×2 (09:00→16:36)
[2021-10-28] MEDS: OMEGA-3/DHA/EPA/FISH OIL 1,000 MG CAPSULE PO SCH (09:00)
[2021-10-28] MEDS: FOLIC ACID 1 MG TABLET PO SCH (09:00)
[2021-10-28] MEDS: BuPROPion HCL XL 150 MG ER TABLET PO SCH (09:00)
[2021-10-28] MEDS: QUEtiapine FUMARATE 100 MG TABLET PO SCH ×2 (09:00→16:36)
[2021-10-28] MEDS: MULTIVITAMINS WITH MINERALS, THERAPEUTIC TABLET PO SCH (09:00)
[2021-10-28] MEDS: NALTREXONE HCL 50 MG TABLET PO SCH ×2 (09:00)
[2021-10-28] MEDS ORDERED: MELATONIN 5 MG TABLET PO SCH (21:00)
[2021-10-28] MEDS: DIVALPROEX SODIUM 500 MG ER TABLET PO SCH (21:00)
[2021-10-28] MEDS: MELATONIN 5 MG TABLET PO SCH (21:00)
[2021-10-28] MEDS: QUEtiapine FUMARATE 200 MG TABLET PO SCH (21:00)
[2021-10-29] MEDS: OMEGA-3/DHA/EPA/FISH OIL 1,000 MG CAPSULE PO SCH (08:32)
[2021-10-29] MEDS: FOLIC ACID 1 MG TABLET PO SCH (08:32)
[2021-10-29] MEDS: NALTREXONE HCL 50 MG TABLET PO SCH ×2 (08:32→09:00)
[2021-10-29] MEDS: MULTIVITAMINS WITH MINERALS, THERAPEUTIC TABLET PO SCH (08:33)
[2021-10-29] MEDS: THIAMINE 100 MG TABLET PO SCH ×2 (08:33→17:00)
[2021-10-29] MEDS: QUEtiapine FUMARATE 100 MG TABLET PO SCH (08:33)
[2021-10-29] MEDS: BuPROPion HCL XL 150 MG ER TABLET PO SCH (08:33)
[2021-10-29] MEDS ORDERED: QUEtiapine FUMARATE 100 MG TABLET PO PRN (15:15)
[2021-10-29 16:24] VITALS: BP 152/94
[2021-10-29] MEDS ORDERED: QUEtiapine FUMARATE 200 MG TABLET PO SCH (21:00)
[2021-10-30] MEDS: THIAMINE 100 MG TABLET PO SCH (09:00)
[2021-10-30] MEDS: FOLIC ACID 1 MG TABLET PO SCH (09:00)
[2021-10-30] MEDS: NALTREXONE HCL 50 MG TABLET PO SCH (09:00)
[2021-10-30] MEDS: MULTIVITAMINS WITH MINERALS, THERAPEUTIC TABLET PO SCH (09:00)
[2021-10-30] MEDS ORDERED: QUET200T30 PO (09:32)
[2021-10-30] MEDS ORDERED: NALT50TA PO (09:32)
[2021-11-01] MEDS ORDERED: PALIPERIDONE PALMITATE 156 MG/ML SYRINGE IM ONE (09:00)
== END 2021-10-30 10:15 | disposition home or self-care (01) | DRG 750 ==
LOC: EMS 18:01 → 3EC 10-24 00:10
PROVIDERS: ADMIT Psychiatry & Neurology Psychiatry; ATTEND Psychiatry & Neurology Psychiatry
DX: F25.0 Schizoaffective disorder, bipolar type (principal); F39 Unspecified mood [affective] disorder; F17.210 Nicotine dependence, cigarettes, uncomplicated; Z20.822 Contact with and (suspected) exposure to COVID-19; F41.9 Anxiety disorder, unspecified; K21.9 Gastro-esophageal reflux disease without esophagitis; Z55.9 Problems related to education and literacy, unspecified; Z59.02 Unsheltered homelessness; Z63.9 Problem related to primary support group, unspecified; Z65.3 Problems related to other legal circumstances; Z91.14 Patient's other noncompliance with medication regimen
CPT/HCPCS: 99285; J1630; J2060; Q9967

== ENCOUNTER 2021-11-11 18:26 | Inpatient (IN) | payer MEDICAID ==
[~2021-11-11] VITALS: Ht 162.6 cm; Wt 50.0 kg
[~2021-11-11 18:26] MED LIST changes: -BUPR-49 PO; -DIVA-80 PO; -LITH300C3 PO; -MELA5TAB40 PO; -OMEG-108 PO
[2021-11-11 20:15] LABS: COVID AG,FIA SOURCE NASAL SWAB
[2021-11-11] MEDS ORDERED: OLANZapine 5 MG RAPDIS TABLET PO PRN (20:45)
[2021-11-11] MEDS ORDERED: ZOLPIDEM TARTRATE 10 MG TABLET PO PRN (20:45)
[2021-11-12] MEDS ORDERED: GuaiFENesin/D-METHORPHAN [SUGAR-FREE] 200-20MG/10 ML SYRUP UDCUP PO PRN (12:00)
[2021-11-12] MEDS ORDERED: MAG HYDROX/AL HYDROX/SIMETH ES 30 ML SUSPENSION UDCUP PO PRN (12:00)
[2021-11-12] MEDS ORDERED: LOPERAMIDE HCL 2 MG CAPSULE PO PRN (12:00)
[2021-11-12] MEDS ORDERED: HydrOXYzine PAMOATE 50 MG CAPSULE PO PRN (12:00)
[2021-11-12] MEDS ORDERED: MAGNESIUM HYDROXIDE SUSPENSION 30 ML UDCUP PO PRN (12:00)
[2021-11-12] MEDS ORDERED: PROMETHAZINE HCL 25 MG TABLET PO PRN (12:00)
[2021-11-12] MEDS ORDERED: PALIPERIDONE PALMITATE 234 MG/1.5 ML SYRINGE IM ONE (12:00)
[2021-11-12] MEDS ORDERED: ACETAMINOPHEN 325 MG TABLET PO PRN (12:00)
[2021-11-12] MEDS: THIAMINE 100 MG TABLET PO SCH (17:00)
[2021-11-12] MEDS: QUEtiapine FUMARATE 25 MG TABLET PO SCH (17:00)
[2021-11-12] MEDS: MELATONIN 5 MG TABLET PO SCH (21:00)
[2021-11-12] MEDS ORDERED: OLANZapine 5 MG RAPDIS TABLET PO SCH (21:00)
[2021-11-12] MEDS: QUEtiapine FUMARATE 100 MG TABLET PO SCH (21:00)
[2021-11-13 08:07] VITALS: BP 112/66
[2021-11-13] MEDS: FOLIC ACID 1 MG TABLET PO SCH (09:00)
[2021-11-13] MEDS: QUEtiapine FUMARATE 25 MG TABLET PO SCH ×3 (09:00→16:47)
[2021-11-13] MEDS: OMEGA-3/DHA/EPA/FISH OIL 1,000 MG CAPSULE PO SCH (09:00)
[2021-11-13] MEDS: NALTREXONE HCL 50 MG TABLET PO SCH (09:00)
[2021-11-13] MEDS: MULTIVITAMINS WITH MINERALS, THERAPEUTIC TABLET PO SCH (09:00)
[2021-11-13] MEDS: THIAMINE 100 MG TABLET PO SCH ×2 (09:00→16:47)
[2021-11-13] MEDS ORDERED: LORazepam 2 MG/ML VIAL IM ONE (16:00)
[2021-11-13] MEDS ORDERED: DiphenhydrAMINE HCL 50 MG/ML VIAL IM ONE (16:00)
[2021-11-13] MEDS ORDERED: HALOPERIDOL LACTATE 5 MG/ML VIAL IM ONE (16:00)
[2021-11-13 16:09] VITALS: BP 118/74
[2021-11-13] MEDS: MELATONIN 5 MG TABLET PO SCH (21:00)
[2021-11-13] MEDS: QUEtiapine FUMARATE 100 MG TABLET PO SCH (21:00)
[2021-11-14] MEDS: OMEGA-3/DHA/EPA/FISH OIL 1,000 MG CAPSULE PO SCH (09:00)
[2021-11-14] MEDS: FOLIC ACID 1 MG TABLET PO SCH (09:00)
[2021-11-14] MEDS: NALTREXONE HCL 50 MG TABLET PO SCH (09:00)
[2021-11-14] MEDS: MULTIVITAMINS WITH MINERALS, THERAPEUTIC TABLET PO SCH (09:00)
[2021-11-14] MEDS: QUEtiapine FUMARATE 25 MG TABLET PO SCH ×3 (09:00→17:00)
[2021-11-14] MEDS: THIAMINE 100 MG TABLET PO SCH ×2 (09:00→17:00)
[2021-11-14] MEDS: LORazepam 2 MG TABLET PO PRN (16:49)
[2021-11-14] MEDS: QUEtiapine FUMARATE 100 MG TABLET PO PRN (17:26)
[2021-11-14] MEDS: MELATONIN 5 MG TABLET PO SCH (21:00)
[2021-11-14] MEDS: QUEtiapine FUMARATE 100 MG TABLET PO SCH (21:00)
[2021-11-14 22:55] VITALS: BP 116/72
[2021-11-15 02:42] VITALS: BP 116/72
[2021-11-15] MEDS: QUEtiapine FUMARATE 25 MG TABLET PO SCH ×3 (08:20→16:12)
[2021-11-15] MEDS: OMEGA-3/DHA/EPA/FISH OIL 1,000 MG CAPSULE PO SCH (08:24)
[2021-11-15] MEDS: NALTREXONE HCL 50 MG TABLET PO SCH (08:24)
[2021-11-15] MEDS: FOLIC ACID 1 MG TABLET PO SCH (08:24)
[2021-11-15] MEDS: MULTIVITAMINS WITH MINERALS, THERAPEUTIC TABLET PO SCH (08:25)
[2021-11-15] MEDS: THIAMINE 100 MG TABLET PO SCH ×2 (08:25→16:11)
[2021-11-15] MEDS: LORazepam 2 MG TABLET PO PRN (18:06)
[2021-11-15] MEDS: QUEtiapine FUMARATE 100 MG TABLET PO SCH (20:03)
[2021-11-15] MEDS: MELATONIN 5 MG TABLET PO SCH (20:05)
[2021-11-15] MEDS: PALIPERIDONE PALMITATE 156 MG/ML SYRINGE IM ONE (20:50)
[2021-11-16] MEDS: OMEGA-3/DHA/EPA/FISH OIL 1,000 MG CAPSULE PO SCH (09:20)
[2021-11-16] MEDS: MULTIVITAMINS WITH MINERALS, THERAPEUTIC TABLET PO SCH (09:20)
[2021-11-16] MEDS: NALTREXONE HCL 50 MG TABLET PO SCH (09:21)
[2021-11-16] MEDS: FOLIC ACID 1 MG TABLET PO SCH (09:21)
[2021-11-16] MEDS: THIAMINE 100 MG TABLET PO SCH ×2 (09:21→16:36)
[2021-11-16] MEDS: QUEtiapine FUMARATE 25 MG TABLET PO SCH ×3 (09:21→16:36)
[2021-11-16] MEDS: PALIPERIDONE PALMITATE 156 MG/ML SYRINGE IM ONE (09:25)
[2021-11-16 09:55] VITALS: BP 101/71
[2021-11-16] MEDS: LORazepam 2 MG TABLET PO PRN (20:06)
[2021-11-16] MEDS: QUEtiapine FUMARATE 100 MG TABLET PO SCH (20:51)
[2021-11-16] MEDS: MELATONIN 5 MG TABLET PO SCH (20:52)
[2021-11-17 08:08] VITALS: BP 118/69
[2021-11-17] MEDS: OMEGA-3/DHA/EPA/FISH OIL 1,000 MG CAPSULE PO SCH (08:32)
[2021-11-17] MEDS: NALTREXONE HCL 50 MG TABLET PO SCH (08:32)
[2021-11-17] MEDS: FOLIC ACID 1 MG TABLET PO SCH (08:32)
[2021-11-17] MEDS: THIAMINE 100 MG TABLET PO SCH ×2 (08:33→17:00)
[2021-11-17] MEDS: MULTIVITAMINS WITH MINERALS, THERAPEUTIC TABLET PO SCH (08:33)
[2021-11-17] MEDS: QUEtiapine FUMARATE 25 MG TABLET PO SCH ×3 (08:33→17:00)
[2021-11-17] MEDS: LORazepam 2 MG TABLET PO PRN (14:40)
[2021-11-17] MEDS: MELATONIN 5 MG TABLET PO SCH (20:59)
[2021-11-17] MEDS: QUEtiapine FUMARATE 100 MG TABLET PO PRN (20:59)
[2021-11-17] MEDS: QUEtiapine FUMARATE 200 MG TABLET PO SCH (21:49)
[2021-11-18] MEDS: THIAMINE 100 MG TABLET PO SCH ×3 (08:04→17:00)
[2021-11-18] MEDS: OMEGA-3/DHA/EPA/FISH OIL 1,000 MG CAPSULE PO SCH (09:00)
[2021-11-18] MEDS ORDERED: QUEtiapine FUMARATE 25 MG TABLET PO SCH (09:00)
[2021-11-18] MEDS: FOLIC ACID 1 MG TABLET PO SCH (09:00)
[2021-11-18] MEDS: NALTREXONE HCL 50 MG TABLET PO SCH (09:00)
[2021-11-18] MEDS: MULTIVITAMINS WITH MINERALS, THERAPEUTIC TABLET PO SCH (09:00)
[2021-11-18] MEDS: LORazepam 2 MG TABLET PO PRN (15:25)
[2021-11-18] MEDS: QUEtiapine FUMARATE 200 MG TABLET PO SCH (20:11)
[2021-11-18] MEDS: MELATONIN 5 MG TABLET PO SCH (20:11)
[2021-11-19 06:04] VITALS: BP 123/75
[2021-11-19 08:35] VITALS: BP 129/68
[2021-11-19] MEDS: THIAMINE 100 MG TABLET PO SCH ×2 (08:43→17:00)
[2021-11-19] MEDS: OMEGA-3/DHA/EPA/FISH OIL 1,000 MG CAPSULE PO SCH (08:43)
[2021-11-19] MEDS: FOLIC ACID 1 MG TABLET PO SCH (08:43)
[2021-11-19] MEDS: QUEtiapine FUMARATE 25 MG TABLET PO SCH ×2 (08:43→12:48)
[2021-11-19] MEDS: NALTREXONE HCL 50 MG TABLET PO SCH (08:43)
[2021-11-19] MEDS: MULTIVITAMINS WITH MINERALS, THERAPEUTIC TABLET PO SCH (08:43)
[2021-11-19] MEDS ORDERED: DiphenhydrAMINE HCL 50 MG/ML VIAL IM ONE (12:15)
[2021-11-19] MEDS ORDERED: LORazepam 2 MG/ML VIAL IM ONE (12:15)
[2021-11-19] MEDS ORDERED: ChlorproMAZINE HCL 50 MG/2 ML AMP IM ONE (12:15)
[2021-11-19] MEDS: QUEtiapine FUMARATE 200 MG TABLET PO SCH (19:33)
[2021-11-19] MEDS: LORazepam 0.5 MG TABLET PO PRN (19:33)
[2021-11-19] MEDS: MELATONIN 5 MG TABLET PO SCH (19:33)
[2021-11-20] MEDS: QUEtiapine FUMARATE 25 MG TABLET PO SCH ×2 (09:00→12:48)
[2021-11-20] MEDS: MULTIVITAMINS WITH MINERALS, THERAPEUTIC TABLET PO SCH (09:00)
[2021-11-20] MEDS: NALTREXONE HCL 50 MG TABLET PO SCH (09:00)
[2021-11-20] MEDS: OMEGA-3/DHA/EPA/FISH OIL 1,000 MG CAPSULE PO SCH (09:00)
[2021-11-20] MEDS: THIAMINE 100 MG TABLET PO SCH ×2 (09:00→17:00)
[2021-11-20] MEDS: FOLIC ACID 1 MG TABLET PO SCH (09:00)
[2021-11-20] MEDS: LORazepam 0.5 MG TABLET PO PRN ×2 (15:31→22:49)
[2021-11-20] MEDS: MELATONIN 5 MG TABLET PO SCH (21:00)
[2021-11-20] MEDS: QUEtiapine FUMARATE 200 MG TABLET PO SCH (21:03)
[2021-11-21] MEDS: QUEtiapine FUMARATE 25 MG TABLET PO SCH ×2 (08:43→13:00)
[2021-11-21] MEDS: LORazepam 0.5 MG TABLET PO PRN ×2 (08:43→16:16)
[2021-11-21] MEDS: NALTREXONE HCL 50 MG TABLET PO SCH (09:00)
[2021-11-21] MEDS: OMEGA-3/DHA/EPA/FISH OIL 1,000 MG CAPSULE PO SCH (09:00)
[2021-11-21] MEDS: FOLIC ACID 1 MG TABLET PO SCH (09:00)
[2021-11-21] MEDS: MULTIVITAMINS WITH MINERALS, THERAPEUTIC TABLET PO SCH (09:00)
[2021-11-21] MEDS: THIAMINE 100 MG TABLET PO SCH ×2 (09:00→16:41)
[2021-11-21] MEDS: QUEtiapine FUMARATE 100 MG TABLET PO PRN (16:16)
[2021-11-21] MEDS: MELATONIN 5 MG TABLET PO SCH (20:09)
[2021-11-21] MEDS: QUEtiapine FUMARATE 200 MG TABLET PO SCH (20:09)
[2021-11-22] MEDS: ZOLPIDEM TARTRATE 5 MG TABLET PO PRN (00:23)
[2021-11-22] MEDS: LORazepam 0.5 MG TABLET PO PRN ×3 (00:23→22:33)
[2021-11-22] MEDS: QUEtiapine FUMARATE 100 MG TABLET PO PRN (01:58)
[2021-11-22] MEDS: QUEtiapine FUMARATE 25 MG TABLET PO SCH ×2 (08:46→13:20)
[2021-11-22] MEDS: FOLIC ACID 1 MG TABLET PO SCH (09:00)
[2021-11-22] MEDS: OMEGA-3/DHA/EPA/FISH OIL 1,000 MG CAPSULE PO SCH (09:00)
[2021-11-22] MEDS: MULTIVITAMINS WITH MINERALS, THERAPEUTIC TABLET PO SCH (09:00)
[2021-11-22] MEDS: THIAMINE 100 MG TABLET PO SCH (09:00)
[2021-11-22] MEDS: NALTREXONE HCL 50 MG TABLET PO SCH (09:00)
[2021-11-22] MEDS ORDERED: ChlorproMAZINE HCL 50 MG/2 ML AMP ONE (10:39)
[2021-11-22] MEDS ORDERED: LORazepam 2 MG/ML VIAL ONE (10:40)
[2021-11-22] MEDS ORDERED: DiphenhydrAMINE HCL 50 MG/ML VIAL ONE (10:41)
[2021-11-22] MEDS: DiphenhydrAMINE HCL 50 MG/ML VIAL IM ONE ×2 (13:00→14:07)
[2021-11-22] MEDS ORDERED: ChlorproMAZINE HCL 50 MG/2 ML AMP IM ONE (13:00)
[2021-11-22] MEDS ORDERED: LORazepam 2 MG/ML VIAL IM ONE (13:00)
[2021-11-22] MEDS: MELATONIN 5 MG TABLET PO SCH (20:26)
[2021-11-22] MEDS: QUEtiapine FUMARATE 200 MG TABLET PO SCH (20:26)
[2021-11-23] MEDS: ZOLPIDEM TARTRATE 5 MG TABLET PO PRN (00:55)
[2021-11-23] MEDS: OMEGA-3/DHA/EPA/FISH OIL 1,000 MG CAPSULE PO SCH (08:03)
[2021-11-23] MEDS: NALTREXONE HCL 50 MG TABLET PO SCH (08:03)
[2021-11-23] MEDS: MULTIVITAMINS WITH MINERALS, THERAPEUTIC TABLET PO SCH (08:03)
[2021-11-23] MEDS: QUEtiapine FUMARATE 100 MG TABLET PO PRN (08:03)
[2021-11-23] MEDS ORDERED: MELA5TAB40 PO (08:46)
[2021-11-23] MEDS ORDERED: OMEG-108 PO (08:46)
[2021-11-23] MEDS ORDERED: NALT50TA PO (08:46)
[2021-11-23] MEDS ORDERED: QUET25TA36 PO ×2 (08:46)
[2021-11-23] MEDS ORDERED: QUET200T30 PO (08:46)
[2021-11-23] MEDS: QUEtiapine FUMARATE 25 MG TABLET PO SCH (09:13)
== END 2021-11-23 12:15 | disposition home or self-care (01) | DRG 750 ==
LOC: EMS 18:31 → B3A 11-12 00:19
PROVIDERS: ADMIT Psychiatry & Neurology Psychiatry; ATTEND Psychiatry & Neurology Psychiatry
DX: F25.0 Schizoaffective disorder, bipolar type (principal); R45.851 Suicidal ideations; Z91.14 Patient's other noncompliance with medication regimen; F41.9 Anxiety disorder, unspecified; J44.9 Chronic obstructive pulmonary disease, unspecified; F32.A Depression, unspecified; K21.9 Gastro-esophageal reflux disease without esophagitis; Z55.9 Problems related to education and literacy, unspecified; Z79.899 Other long term (current) drug therapy; Z59.9 Problem related to housing and economic circumstances, unspecified; Z63.9 Problem related to primary support group, unspecified; Z65.3 Problems related to other legal circumstances; Z87.891 Personal history of nicotine dependence; Z91.19 Patient's noncompliance with other medical treatment and regimen; Z59.02 Unsheltered homelessness; Z72.89 Other problems related to lifestyle; Z59.00 Homelessness unspecified
CPT/HCPCS: 99285; J1200; J1630; J2060; J3230; Q9967

== ENCOUNTER 2022-01-14 22:02 | Emergency (ER) | payer MEDICAID ==
[~2022-01-14] VITALS: Ht 172.7 cm; Wt 158.0 kg
[~2022-01-14 22:02] MED LIST changes: +MELA5TAB40 PO; +OMEG-135 PO; +QUET25TA36 PO
[2022-01-14 22:46] LABS: AMPHET/METH SCREEN,URINE NEGATIVE (NEGATIVE); BARBITURATE SCREEN, URINE NEGATIVE (NEGATIVE); BENZODIAZEPINES SCREEN,URINE NEGATIVE (NEGATIVE); CANNABINOID SCREEN,URINE NEGATIVE (NEGATIVE); COCAINE SCREEN,URINE NEGATIVE (NEGATIVE); METHADONE SCREEN, URINE NEGATIVE (NEGATIVE); OPIATE SCREEN,URINE NEGATIVE (NEGATIVE); PHENCYCLIDINE SCREEN,URINE NEGATIVE (NEGATIVE)
[2022-01-14 23:08] LABS: BASOPHILS % (AUTO) 0.6 % (0.0-2.0); EOSINOPHILS % (AUTO) 1.2 % (1.0-6.0); HEMOGLOBIN 13.8 g/dL (12.0-16.0); LYMPHOCYTES # (AUTO) 2.2 K/uL (1.0-4.8); LYMPHOCYTES % (AUTO) 27.7 % (22.0-44.0); MEAN CORPUSCULAR HEMOGLOBIN 29.4 pg (26.0-34.0); MEAN CORPUSCULAR HGB CONC 33.7 G/dL (31.0-37.0); MEAN CORPUSCULAR VOLUME 87 fL (80-100); MONOCYTES # (AUTO) 0.7 K/uL (0.1-1.0); MONOCYTES % (AUTO) 8.6 % (2.0-9.0); NEUTROPHILS # (AUTO) 4.9 K/uL (1.8-7.7); NEUTROPHILS % (AUTO) 61.9 % (40.0-70.0); PLATELET COUNT (AUTO) 243 K/uL (150-450); RED CELL DISTRIBUTION WIDTH 14.3 % (11.5-14.5)
[2022-01-14 23:19] LABS: ANION GAP 15 mmol/L (8-16); CALCIUM, TOTAL 9.9 mg/dL (8.8-10.5); CARBON DIOXIDE 24 mmol/L (22-29); CHLORIDE 103 mmol/L (98-107); CREATININE 0.83 mg/dL (0.60-1.30); GLUCOSE,RANDOM 118 mg/dL (70-110); POTASSIUM 3.6 mmol/L (3.5-5.1); SODIUM SERUM 142 mmol/L (136-145); UREA NITROGEN, BLOOD 14 mg/dL (7-18)
[2022-01-14 23:20] LABS: GLOMERULAR FILTR. RATE CALC > 60 mL/min (>60)
[2022-01-14 23:36] LABS: ALANINE AMINOTRANSFERASE 29 U/L (12-78); ALBUMIN 3.9 g/dL (3.4-5.0); ALKALINE PHOSPHATASE 80 U/L (46-116); ASPARTATE AMINOTRANSFERASE 24 U/L (15-37); BILIRUBIN,TOTAL 0.5 mg/dL (0.1-1.0); HCG,QUANTITATIVE < 1 mIU/mL (0-6); THYROID STIMULATING HORMONE 1.01 uIU/mL (0.36-3.74); TOTAL PROTEIN, SERUM 7.8 g/dL (6.4-8.2)
[2022-01-14 23:46] LABS: COVID AG,FIA SOURCE NASOPHARYNGEAL
[2022-01-15] MEDS ORDERED: OLANZapine 5 MG RAPDIS TABLET PO ONE (00:30)
[2022-01-15 06:00] VITALS: BP 122/74
== END 2022-01-15 06:11 | disposition home or self-care (01) ==
LOC: EMS 22:03
DX: F25.0 Schizoaffective disorder, bipolar type (principal); F10.10 Alcohol abuse, uncomplicated; J45.909 Unspecified asthma, uncomplicated; F31.9 Bipolar disorder, unspecified; F17.210 Nicotine dependence, cigarettes, uncomplicated; F11.90 Opioid use, unspecified, uncomplicated; F15.90 Other stimulant use, unspecified, uncomplicated; Z20.822 Contact with and (suspected) exposure to COVID-19; Y90.0 Blood alcohol level of less than 20 mg/100 ml
CPT/HCPCS: 99283; 87426; 80053; 84443; 84702; 85025; 36415; 80307; G0480

== ENCOUNTER 2022-01-15 07:38 | Inpatient (IN) | payer MEDICAID ==
[~2022-01-15] VITALS: Ht 162.6 cm; Wt 65.6 kg
[2022-01-15 08:11] LABS: HEMATOCRIT 42.5 % (36-46); HEMOGLOBIN 14.2 g/dL (12.0-16.0); LYMPHOCYTES # (AUTO) 1.9 K/uL (1.0-4.8); LYMPHOCYTES % (AUTO) 33.5 % (22.0-44.0); MEAN CORPUSCULAR HGB CONC 33.3 G/dL (31.0-37.0); MEAN CORPUSCULAR VOLUME 87 fL (80-100); MONOCYTES # (AUTO) 0.6 K/uL (0.1-1.0); MONOCYTES % (AUTO) 11.6 % (2.0-9.0); NEUTROPHILS # (AUTO) 2.8 K/uL (1.8-7.7); NEUTROPHILS % (AUTO) 50.9 % (40.0-70.0); PLATELET COUNT (AUTO) 247 K/uL (150-450); RED BLOOD CELL COUNT(AUTO) 4.89 MIL/uL (4.00-5.20); RED CELL DISTRIBUTION WIDTH 14.3 % (11.5-14.5)
[2022-01-15 08:18] LABS: ANION GAP 8 mmol/L (8-16); CALCIUM, TOTAL 9.9 mg/dL (8.8-10.5); CARBON DIOXIDE 26 mmol/L (22-29); CHLORIDE 106 mmol/L (98-107); CREATININE 0.74 mg/dL (0.60-1.30); GLUCOSE,RANDOM 107 mg/dL (70-110); POTASSIUM 3.8 mmol/L (3.5-5.1); SODIUM SERUM 140 mmol/L (136-145); UREA NITROGEN, BLOOD 12 mg/dL (7-18)
[2022-01-15 08:19] LABS: GLOMERULAR FILTR. RATE CALC > 60 mL/min (>60)
[2022-01-15 08:23] LABS: ALANINE AMINOTRANSFERASE 25 U/L (12-78); ALKALINE PHOSPHATASE 81 U/L (46-116); ASPARTATE AMINOTRANSFERASE 22 U/L (15-37); BILIRUBIN,TOTAL 0.5 mg/dL (0.1-1.0)
[2022-01-15] MEDS ORDERED: LORazepam 2 MG/ML VIAL IM ONE (09:15)
[2022-01-15] MEDS ORDERED: HALOPERIDOL LACTATE 5 MG/ML VIAL IM ONE (09:15)
[2022-01-15] MEDS ORDERED: DiphenhydrAMINE HCL 50 MG/ML VIAL IM ONE (09:15)
[2022-01-15 10:45] LABS: COVID AG,FIA SOURCE NASAL SWAB
[2022-01-15 13:15] VITALS: BP 106/67
[2022-01-15 17:18] VITALS: BP 104/51
[2022-01-16] MEDS: ZOLPIDEM TARTRATE 10 MG TABLET PO PRN ×2 (02:47→20:08)
[2022-01-16 04:11] VITALS: BP 121/76
[2022-01-16] MEDS ORDERED: LOPERAMIDE HCL 2 MG CAPSULE PO PRN (07:45)
[2022-01-16] MEDS ORDERED: NICOTINE 14 MG/24 HOUR PATCH TD PRN (07:45)
[2022-01-16] MEDS ORDERED: MAG HYDROX/AL HYDROX/SIMETH ES 30 ML SUSPENSION UDCUP PO PRN (07:45)
[2022-01-16] MEDS ORDERED: PETROLATUM,WHITE 28 GM JELLY TP PRN (07:45)
[2022-01-16] MEDS ORDERED: ACETAMINOPHEN 325 MG TABLET PO PRN (07:45)
[2022-01-16] MEDS ORDERED: ONDANSETRON HCL 4 MG TABLET PO PRN (07:45)
[2022-01-16] MEDS ORDERED: ALBUTEROL SULFATE HFA 90 MCG/PUFF 8 GM INHALER IH PRN (07:45)
[2022-01-16] MEDS ORDERED: GuaiFENesin/D-METHORPHAN [SUGAR-FREE] 200-20MG/10 ML SYRUP UDCUP PO PRN (07:45)
[2022-01-16] MEDS ORDERED: MAGNESIUM HYDROXIDE SUSPENSION 30 ML UDCUP PO PRN (07:45)
[2022-01-16] MEDS ORDERED: CloNIDine HCL 0.1 MG TABLET PO PRN (07:45)
[2022-01-16] MEDS ORDERED: DOCUSATE SODIUM 100 MG CAPSULE PO PRN (07:45)
[2022-01-16 08:11] VITALS: BP 112/74
[2022-01-16 09:42] VITALS: BP 117/74
[2022-01-16] MEDS: HALOPERIDOL 5 MG TABLET PO PRN ×2 (10:03→16:14)
[2022-01-16] MEDS: LORazepam 2 MG TABLET PO PRN ×2 (10:03→16:14)
[2022-01-16] MEDS: QUEtiapine FUMARATE 25 MG TABLET PO SCH (12:12)
[2022-01-16] MEDS: IBUPROFEN 400 MG TABLET PO PRN (12:12)
[2022-01-16 16:11] VITALS: BP 108/72
[2022-01-16 20:32] VITALS: BP 124/78
[2022-01-16] MEDS ORDERED: QUEtiapine FUMARATE 200 MG TABLET PO SCH (21:00)
[2022-01-16 21:07] VITALS: BP 124/78
[2022-01-17] MEDS: IBUPROFEN 400 MG TABLET PO PRN (04:18)
[2022-01-17 06:52] LABS: APPEARANCE,URINE TURBID (CLEAR); BILIRUBIN,URINE NEGATIVE (NEGATIVE); GLUCOSE, URINE (UA) NEGATIVE (NEGATIVE); KETONES,URINE NEGATIVE (NEGATIVE); LEUKOCYTE ESTERASE ,URINE LARGE (NEGATIVE); NITRATE,URINE NEGATIVE (NEGATIVE); OCCULT BLOOD,URINE SMALL (NEGATIVE); PROTEIN,URINE 30-70 mg/dL (NEGATIVE); SPECIFIC GRAVITIY, URINE 1.031 (1.003-1.030); UROBILINOGEN,URINE <=1.0 mg/dL (<=1.0)
[2022-01-17 06:57] LABS: AMPHET/METH SCREEN,URINE NEGATIVE (NEGATIVE); BARBITURATE SCREEN, URINE NEGATIVE (NEGATIVE); BENZODIAZEPINES SCREEN,URINE NEGATIVE (NEGATIVE); CANNABINOID SCREEN,URINE NEGATIVE (NEGATIVE); COCAINE SCREEN,URINE NEGATIVE (NEGATIVE); METHADONE SCREEN, URINE NEGATIVE (NEGATIVE); OPIATE SCREEN,URINE NEGATIVE (NEGATIVE)
[2022-01-17 07:02] LABS: PHENCYCLIDINE SCREEN,URINE NEGATIVE (NEGATIVE)
[2022-01-17 07:21] LABS: BACTERIA,URINE Many /HPF (None Seen); SQUAMOUS EPITHELIAL CELL,UR Moderate /LPF (None Seen)
[2022-01-17 07:22] LABS: AMORPHOUS SEDIMENT,UR Moderate /LPF (None Seen); CALCIUM OXALATE CRYSTALS,UR Few /LPF (None Seen)
[2022-01-17 08:34] VITALS: BP 116/79
[2022-01-17] MEDS ORDERED: QUET25TA36 PO (08:37)
[2022-01-17] MEDS ORDERED: QUET200T30 PO (08:37)
[2022-01-17] MEDS: HALOPERIDOL 5 MG TABLET PO PRN (09:04)
[2022-01-17] MEDS: LORazepam 2 MG TABLET PO PRN (09:04)
[2022-01-17] MEDS: QUEtiapine FUMARATE 25 MG TABLET PO SCH (09:04)
[2022-01-17] MEDS ORDERED: PALIPERIDONE PALMITATE 156 MG/ML SYRINGE IM SCH (16:00)
== END 2022-01-17 15:20 | disposition left against medical advice (07) | DRG 750 ==
LOC: EMS 07:42 → B3A 12:38
PROVIDERS: ADMIT Psychiatry & Neurology Child & Adolescent Psychiatry; ATTEND Psychiatry & Neurology Child & Adolescent Psychiatry
DX: F25.0 Schizoaffective disorder, bipolar type (principal); E78.5 Hyperlipidemia, unspecified; F41.9 Anxiety disorder, unspecified; G47.00 Insomnia, unspecified; J45.909 Unspecified asthma, uncomplicated; F11.90 Opioid use, unspecified, uncomplicated; F15.90 Other stimulant use, unspecified, uncomplicated; F17.200 Nicotine dependence, unspecified, uncomplicated; F32.A Depression, unspecified; Z20.822 Contact with and (suspected) exposure to COVID-19; Z79.899 Other long term (current) drug therapy
CPT/HCPCS: 80053; 81001; 84703; 85025; 87086; 99285; G0480; J1200; J1630; J2060

== ENCOUNTER 2022-01-18 07:53 | Inpatient (IN) | payer MEDICAID ==
[~2022-01-18] VITALS: Ht 154.9 cm; Wt 65.8 kg
[~2022-01-18 07:53] MED LIST changes: -MELA5TAB40 PO; -NALT50TA PO; -OMEG-135 PO
[2022-01-18 08:16] LABS: BASOPHILS % (AUTO) 0.6 % (0.0-2.0); EOSINOPHILS % (AUTO) 0.3 % (1.0-6.0); HEMATOCRIT 38.2 % (36-46); HEMOGLOBIN 13.1 g/dL (12.0-16.0); MEAN CORPUSCULAR HEMOGLOBIN 29.5 pg (26.0-34.0); MEAN CORPUSCULAR HGB CONC 34.2 G/dL (31.0-37.0); MEAN CORPUSCULAR VOLUME 86 fL (80-100); MONOCYTES # (AUTO) 0.5 K/uL (0.1-1.0); MONOCYTES % (AUTO) 5.4 % (2.0-9.0); NEUTROPHILS # (AUTO) 6.1 K/uL (1.8-7.7); NEUTROPHILS % (AUTO) 70.7 % (40.0-70.0); PLATELET COUNT (AUTO) 225 K/uL (150-450); RED BLOOD CELL COUNT(AUTO) 4.43 MIL/uL (4.00-5.20)
[2022-01-18 08:25] LABS: ANION GAP 7 mmol/L (8-16); CALCIUM, TOTAL 9.5 mg/dL (8.8-10.5); CARBON DIOXIDE 23 mmol/L (22-29); CHLORIDE 103 mmol/L (98-107); CREATININE 0.67 mg/dL (0.60-1.30); GLUCOSE,RANDOM 108 mg/dL (70-110); POTASSIUM 3.5 mmol/L (3.5-5.1); SODIUM SERUM 133 mmol/L (136-145); UREA NITROGEN, BLOOD 7 mg/dL (7-18)
[2022-01-18 08:27] LABS: GLOMERULAR FILTR. RATE CALC > 60 mL/min (>60)
[2022-01-18] MEDS ORDERED: MIDAZOLAM HCL 5 MG/ML VIAL IM ONE (08:30)
[2022-01-18] MEDS ORDERED: HALOPERIDOL LACTATE 5 MG/ML VIAL IM ONE (08:30)
[2022-01-18] MEDS ORDERED: DiphenhydrAMINE HCL 50 MG/ML VIAL IM ONE (08:30)
[2022-01-18 08:36] LABS: COVID AG,FIA SOURCE NASOPHARYNGEAL
[2022-01-18 08:38] LABS: ALANINE AMINOTRANSFERASE 21 U/L (12-78); ALKALINE PHOSPHATASE 74 U/L (46-116); ASPARTATE AMINOTRANSFERASE 18 U/L (15-37); BILIRUBIN,TOTAL 0.5 mg/dL (0.1-1.0); HCG,QUANTITATIVE < 1 mIU/mL (0-6); TOTAL PROTEIN, SERUM 7.7 g/dL (6.4-8.2)
[2022-01-18 08:43] LABS: AMPHET/METH SCREEN,URINE NEGATIVE (NEGATIVE); BARBITURATE SCREEN, URINE NEGATIVE (NEGATIVE); BENZODIAZEPINES SCREEN,URINE NEGATIVE (NEGATIVE); CANNABINOID SCREEN,URINE NEGATIVE (NEGATIVE); COCAINE SCREEN,URINE NEGATIVE (NEGATIVE); METHADONE SCREEN, URINE NEGATIVE (NEGATIVE); OPIATE SCREEN,URINE NEGATIVE (NEGATIVE)
[2022-01-18 08:45] LABS: PHENCYCLIDINE SCREEN,URINE NEGATIVE (NEGATIVE)
[2022-01-18] MEDS: LORazepam 2 MG TABLET PO PRN (16:08)
[2022-01-18] MEDS: OLANZapine 5 MG TABLET PO PRN (17:06)
[2022-01-18 20:52] VITALS: BP 118/79
[2022-01-19] MEDS: ZOLPIDEM TARTRATE 10 MG TABLET PO PRN ×2 (02:40→20:11)
[2022-01-19 08:26] VITALS: BP 100/61
[2022-01-19] MEDS: LORazepam 2 MG TABLET PO PRN (10:25)
[2022-01-19] MEDS: OLANZapine 5 MG TABLET PO PRN (10:25)
[2022-01-19] MEDS: QUEtiapine FUMARATE 25 MG TABLET PO SCH (14:46)
[2022-01-19 20:00] VITALS: BP 102/55
[2022-01-19] MEDS: QUEtiapine FUMARATE 200 MG TABLET PO SCH (20:11)
[2022-01-20] MEDS: LORazepam 2 MG TABLET PO PRN ×4 (01:34→23:11)
[2022-01-20] MEDS: OLANZapine 5 MG TABLET PO PRN ×3 (01:35→23:11)
[2022-01-20 08:46] VITALS: BP 121/69
[2022-01-20] MEDS: QUEtiapine FUMARATE 25 MG TABLET PO SCH (09:24)
[2022-01-20] MEDS ORDERED: GuaiFENesin/D-METHORPHAN/PHENYLEPH 5 ML LIQUID ORAL.SYG PO PRN (10:00)
[2022-01-20 10:56] LABS: GLUCOMETER DEV NAME(LOC) POC.BV
[2022-01-20] MEDS ORDERED: LORazepam 2 MG/ML VIAL IM ONE (17:30)
[2022-01-20] MEDS ORDERED: DiphenhydrAMINE HCL 50 MG/ML VIAL IM ONE (17:30)
[2022-01-20] MEDS ORDERED: HALOPERIDOL LACTATE 5 MG/ML VIAL IM ONE (17:30)
[2022-01-20] MEDS ORDERED: LORazepam 2 MG/ML VIAL ONE (17:31)
[2022-01-20] MEDS ORDERED: DiphenhydrAMINE HCL 50 MG/ML VIAL ONE (17:31)
[2022-01-20] MEDS ORDERED: HALOPERIDOL LACTATE 5 MG/ML VIAL ONE (17:31)
[2022-01-20 19:26] LABS: GLUCOMETER DEV NAME(LOC) POC.BV
[2022-01-20] MEDS: QUEtiapine FUMARATE 200 MG TABLET PO SCH (20:08)
[2022-01-21] MEDS: QUEtiapine FUMARATE 25 MG TABLET PO SCH (08:15)
[2022-01-21] MEDS: LORazepam 2 MG TABLET PO PRN (08:15)
[2022-01-21 08:19] VITALS: BP 112/69
[2022-01-21] MEDS ORDERED: QUET25TA36 PO (11:49)
[2022-01-21] MEDS ORDERED: QUET200T30 PO (11:49)
== END 2022-01-21 17:34 | disposition home or self-care (01) | DRG 750 ==
LOC: EMS 07:57 → B3A 10:03
PROVIDERS: ADMIT Psychiatry & Neurology Child & Adolescent Psychiatry; ATTEND Psychiatry & Neurology Child & Adolescent Psychiatry
DX: F25.0 Schizoaffective disorder, bipolar type (principal); R45.851 Suicidal ideations; E87.1 Hypo-osmolality and hyponatremia; Z53.29 Procedure and treatment not carried out because of patient's decision for other reasons; F10.20 Alcohol dependence, uncomplicated; F15.20 Other stimulant dependence, uncomplicated; F17.200 Nicotine dependence, unspecified, uncomplicated; J45.909 Unspecified asthma, uncomplicated; F11.90 Opioid use, unspecified, uncomplicated; F32.A Depression, unspecified; F41.9 Anxiety disorder, unspecified; Z20.822 Contact with and (suspected) exposure to COVID-19; Z91.19 Patient's noncompliance with other medical treatment and regimen; Z79.899 Other long term (current) drug therapy; Z71.51 Drug abuse counseling and surveillance of drug abuser; Z71.41 Alcohol abuse counseling and surveillance of alcoholic
CPT/HCPCS: 80053; 84702; 85025; 87081; 99285; G0480; J1200; J1630; J2060; J2250

== ENCOUNTER 2022-01-27 15:38 | Emergency (ER) | payer MEDICAID | END 2022-01-27 17:32 | disposition left against medical advice (07) | LOC: EMS 15:44 | DX: M25.30 Other instability, unspecified joint (principal); Z53.21 Procedure and treatment not carried out due to patient leaving prior to being seen by health care provider ==

== ENCOUNTER 2022-03-18 05:37 | Inpatient (IN) | payer MEDICAID ==
[~2022-03-18] VITALS: Ht 170.2 cm; Wt 66.7 kg
[2022-03-18] MEDS ORDERED: LORazepam 1 MG TABLET PO ONE (06:30)
[2022-03-18] MEDS ORDERED: QUEtiapine FUMARATE 100 MG TABLET PO ONE (06:30)
[2022-03-18 06:44] LABS: BASOPHILS % (AUTO) 0.5 % (0.0-2.0); EOSINOPHILS % (AUTO) 2.4 % (1.0-6.0); HEMATOCRIT 40.7 % (36-46); HEMOGLOBIN 14.1 g/dL (12.0-16.0); LYMPHOCYTES # (AUTO) 2.8 K/uL (1.0-4.8); LYMPHOCYTES % (AUTO) 44.8 % (22.0-44.0); MEAN CORPUSCULAR HEMOGLOBIN 30.5 pg (26.0-34.0); MEAN CORPUSCULAR HGB CONC 34.7 G/dL (31.0-37.0); MEAN CORPUSCULAR VOLUME 88 fL (80-100); MONOCYTES # (AUTO) 0.7 K/uL (0.1-1.0); MONOCYTES % (AUTO) 11.8 % (2.0-9.0); NEUTROPHILS # (AUTO) 2.6 K/uL (1.8-7.7); NEUTROPHILS % (AUTO) 40.5 % (40.0-70.0); PLATELET COUNT (AUTO) 248 K/uL (150-450); RED BLOOD CELL COUNT(AUTO) 4.63 MIL/uL (4.00-5.20); RED CELL DISTRIBUTION WIDTH 12.7 % (11.5-14.5)
[2022-03-18 06:59] LABS: ANION GAP 6 mmol/L (8-16); CALCIUM, TOTAL 9.5 mg/dL (8.8-10.5); CARBON DIOXIDE 28 mmol/L (22-29); CHLORIDE 102 mmol/L (98-107); CREATININE 0.77 mg/dL (0.60-1.30); GLUCOSE,RANDOM 90 mg/dL (70-110); POTASSIUM 3.8 mmol/L (3.5-5.1); SODIUM SERUM 136 mmol/L (136-145); UREA NITROGEN, BLOOD 9 mg/dL (7-18)
[2022-03-18 07:02] LABS: GLOMERULAR FILTR. RATE CALC > 60 mL/min (>60)
[2022-03-18 07:05] LABS: ALANINE AMINOTRANSFERASE 17 U/L (12-78); ALBUMIN 3.4 g/dL (3.4-5.0); ALKALINE PHOSPHATASE 71 U/L (46-116); ASPARTATE AMINOTRANSFERASE 14 U/L (15-37); BILIRUBIN,TOTAL 0.4 mg/dL (0.1-1.0); TOTAL PROTEIN, SERUM 7.3 g/dL (6.4-8.2)
[2022-03-18 07:44] LABS: COVID AG,FIA SOURCE NASOPHARYNGEAL
[2022-03-18] MEDS ORDERED: ACETAMINOPHEN 325 MG TABLET PO PRN (11:30)
[2022-03-18 14:31] VITALS: BP 98/65
[2022-03-18] MEDS ORDERED: INFLUENZA VIRUS VACCINE QVS 2022-23 (6MO+)/PF 60 MCG/0.5 ML SYRINGE IM. ONE (14:45)
[2022-03-18] MEDS ORDERED: PNEUMOCOCCAL VACCINE POLYVALENT 0.5 ML VIAL [PPSV23] IM. ONE (14:45)
[2022-03-18] MEDS: BACITRACIN 28 GM OINTMENT TP SCH (16:57)
[2022-03-18 20:32] VITALS: BP 109/65
[2022-03-19] MEDS: BACITRACIN 28 GM OINTMENT TP SCH ×2 (08:30→17:44)
[2022-03-19] MEDS: NICOTINE 14 MG/24 HOUR PATCH TD SCH (08:30)
[2022-03-19 08:31] VITALS: BP 106/72
[2022-03-19] MEDS: LORazepam 2 MG TABLET PO PRN (08:43)
[2022-03-19] MEDS: HALOPERIDOL 5 MG TABLET PO PRN (12:34)
[2022-03-19] MEDS ORDERED: DOCUSATE SODIUM 100 MG CAPSULE PO PRN (12:45)
[2022-03-19] MEDS ORDERED: PETROLATUM,WHITE 28 GM JELLY TP PRN (12:45)
[2022-03-19] MEDS ORDERED: LOPERAMIDE HCL 2 MG CAPSULE PO PRN (12:45)
[2022-03-19] MEDS ORDERED: CloNIDine HCL 0.1 MG TABLET PO PRN (12:45)
[2022-03-19] MEDS ORDERED: MAGNESIUM HYDROXIDE SUSPENSION 30 ML UDCUP PO PRN (12:45)
[2022-03-19] MEDS ORDERED: ALBUTEROL SULFATE HFA 90 MCG/PUFF 8 GM INHALER IH PRN (12:45)
[2022-03-19] MEDS: QUEtiapine FUMARATE 200 MG TABLET PO SCH (21:20)
[2022-03-20] MEDS: NICOTINE 14 MG/24 HOUR PATCH TD SCH (09:18)
[2022-03-20] MEDS: BACITRACIN 28 GM OINTMENT TP SCH ×2 (09:19→16:00)
[2022-03-20] MEDS: HALOPERIDOL 5 MG TABLET PO PRN (15:12)
[2022-03-20] MEDS: LORazepam 2 MG TABLET PO PRN (15:12)
[2022-03-20] MEDS: QUEtiapine FUMARATE 200 MG TABLET PO SCH (20:11)
[2022-03-20] MEDS: ZOLPIDEM TARTRATE 10 MG TABLET PO PRN (20:11)
[2022-03-20 20:23] VITALS: BP 110/68
[2022-03-21] MEDS: NICOTINE 14 MG/24 HOUR PATCH TD SCH (09:00)
[2022-03-21] MEDS: BACITRACIN 28 GM OINTMENT TP SCH ×2 (09:00→16:12)
[2022-03-21] MEDS: LORazepam 2 MG TABLET PO PRN (14:54)
[2022-03-21] MEDS: HALOPERIDOL 5 MG TABLET PO PRN (14:54)
[2022-03-21] MEDS: ZOLPIDEM TARTRATE 10 MG TABLET PO PRN (20:29)
[2022-03-21] MEDS: QUEtiapine FUMARATE 200 MG TABLET PO SCH (20:29)
[2022-03-21 22:25] VITALS: BP 110/68
[2022-03-22 08:24] VITALS: BP 118/74
[2022-03-22] MEDS: BACITRACIN 28 GM OINTMENT TP SCH ×2 (09:51→16:56)
[2022-03-22] MEDS: NICOTINE 14 MG/24 HOUR PATCH TD SCH (09:52)
[2022-03-22] MEDS: LORazepam 2 MG TABLET PO PRN (11:29)
[2022-03-22 20:15] VITALS: BP 107/79
[2022-03-22] MEDS: QUEtiapine FUMARATE 200 MG TABLET PO SCH (20:26)
[2022-03-23] MEDS: NICOTINE 14 MG/24 HOUR PATCH TD SCH (08:04)
[2022-03-23] MEDS: BACITRACIN 28 GM OINTMENT TP SCH ×2 (08:04→15:53)
[2022-03-23 09:56] VITALS: BP 118/76
[2022-03-23] MEDS: LORazepam 2 MG TABLET PO PRN ×2 (11:44→15:53)
[2022-03-23] MEDS: QUEtiapine FUMARATE 200 MG TABLET PO SCH (21:21)
[2022-03-24] MEDS: BACITRACIN 28 GM OINTMENT TP SCH ×2 (08:32→16:52)
[2022-03-24] MEDS: NICOTINE 14 MG/24 HOUR PATCH TD SCH (08:32)
[2022-03-24] MEDS: LORazepam 2 MG TABLET PO PRN (12:25)
[2022-03-24] MEDS: HALOPERIDOL 5 MG TABLET PO PRN (12:25)
[2022-03-24] MEDS ORDERED: LORazepam 2 MG/ML VIAL ONE (14:00)
[2022-03-24] MEDS ORDERED: LORazepam 2 MG/ML VIAL IM ONE (14:00)
[2022-03-24] MEDS ORDERED: HALOPERIDOL LACTATE 5 MG/ML VIAL IM ONE (14:00)
[2022-03-24] MEDS ORDERED: DiphenhydrAMINE HCL 50 MG/ML VIAL IM ONE (14:00)
[2022-03-24] MEDS ORDERED: HALOPERIDOL LACTATE 5 MG/ML VIAL ONE (14:01)
[2022-03-24] MEDS ORDERED: DiphenhydrAMINE HCL 50 MG/ML VIAL ONE (14:01)
[2022-03-24 20:19] VITALS: BP 116/73
[2022-03-24] MEDS: ZOLPIDEM TARTRATE 10 MG TABLET PO PRN (20:42)
[2022-03-24] MEDS: QUEtiapine FUMARATE 200 MG TABLET PO SCH (20:42)
[2022-03-25] MEDS: MULTIVITAMINS WITH MINERALS, THERAPEUTIC TABLET PO SCH ×2 (08:06→08:11)
[2022-03-25] MEDS: BACITRACIN 28 GM OINTMENT TP SCH ×2 (08:06→16:22)
[2022-03-25] MEDS: NICOTINE 14 MG/24 HOUR PATCH TD SCH (08:11)
[2022-03-25] MEDS: LORazepam 2 MG TABLET PO PRN ×2 (10:40→16:22)
[2022-03-25] MEDS: DIVALPROEX SODIUM 500 MG DR TABLET PO SCH ×2 (13:45→20:03)
[2022-03-25] MEDS: QUEtiapine FUMARATE 300 MG TABLET PO SCH (20:02)
[2022-03-25] MEDS: ZOLPIDEM TARTRATE 10 MG TABLET PO PRN (20:03)
[2022-03-26 08:20] VITALS: BP 116/72
[2022-03-26] MEDS: MULTIVITAMINS WITH MINERALS, THERAPEUTIC TABLET PO SCH (08:23)
[2022-03-26] MEDS: NICOTINE 14 MG/24 HOUR PATCH TD SCH (08:23)
[2022-03-26] MEDS: BACITRACIN 28 GM OINTMENT TP SCH ×2 (08:23→16:32)
[2022-03-26] MEDS: DIVALPROEX SODIUM 500 MG DR TABLET PO SCH ×2 (08:23→20:03)
[2022-03-26] MEDS: LORazepam 2 MG TABLET PO PRN (08:25)
[2022-03-26] MEDS ORDERED: LORazepam 2 MG/ML VIAL ONE (12:05)
[2022-03-26] MEDS ORDERED: DiphenhydrAMINE HCL 50 MG/ML VIAL ONE (12:06)
[2022-03-26] MEDS ORDERED: HALOPERIDOL LACTATE 5 MG/ML VIAL ONE (12:06)
[2022-03-26] MEDS ORDERED: DiphenhydrAMINE HCL 50 MG/ML VIAL IM ONE (12:30)
[2022-03-26] MEDS ORDERED: HALOPERIDOL LACTATE 5 MG/ML VIAL IM ONE (12:30)
[2022-03-26] MEDS ORDERED: LORazepam 2 MG/ML VIAL IM ONE (12:30)
[2022-03-26] MEDS: ZOLPIDEM TARTRATE 10 MG TABLET PO PRN (20:03)
[2022-03-26] MEDS: QUEtiapine FUMARATE 300 MG TABLET PO SCH (20:03)
[2022-03-26 23:14] VITALS: BP 112/68
[2022-03-27] MEDS: BACITRACIN 28 GM OINTMENT TP SCH ×2 (08:40→17:02)
[2022-03-27] MEDS: MULTIVITAMINS WITH MINERALS, THERAPEUTIC TABLET PO SCH (08:40)
[2022-03-27] MEDS: NICOTINE 14 MG/24 HOUR PATCH TD SCH ×2 (08:40→08:47)
[2022-03-27] MEDS: DIVALPROEX SODIUM 500 MG DR TABLET PO SCH ×2 (08:40→20:25)
[2022-03-27 09:54] VITALS: BP 110/72
[2022-03-27 10:51] LABS: GLUCOMETER DEV NAME(LOC) POC.BV
[2022-03-27] MEDS: LORazepam 2 MG TABLET PO PRN (14:02)
[2022-03-27] MEDS: HALOPERIDOL 5 MG TABLET PO PRN (14:42)
[2022-03-27 20:00] VITALS: BP 116/76
[2022-03-27] MEDS: QUEtiapine FUMARATE 300 MG TABLET PO SCH (20:25)
[2022-03-27] MEDS: ZOLPIDEM TARTRATE 10 MG TABLET PO PRN (20:29)
[2022-03-28] MEDS: MULTIVITAMINS WITH MINERALS, THERAPEUTIC TABLET PO SCH (08:24)
[2022-03-28] MEDS: BACITRACIN 28 GM OINTMENT TP SCH ×2 (08:24→16:38)
[2022-03-28] MEDS: LORazepam 2 MG TABLET PO PRN ×3 (08:24→20:42)
[2022-03-28] MEDS: DIVALPROEX SODIUM 500 MG DR TABLET PO SCH ×2 (08:24→20:42)
[2022-03-28] MEDS: NICOTINE 14 MG/24 HOUR PATCH TD SCH (08:31)
[2022-03-28] MEDS: ACETAMINOPHEN 325 MG TABLET PO PRN (15:33)
[2022-03-28] MEDS: HALOPERIDOL 5 MG TABLET PO PRN ×2 (15:34→21:39)
[2022-03-28] MEDS: QUEtiapine FUMARATE 300 MG TABLET PO SCH (20:42)
[2022-03-28] MEDS: ZOLPIDEM TARTRATE 10 MG TABLET PO PRN (20:42)
[2022-03-28 20:45] VITALS: BP 104/60
[2022-03-29] MEDS: BACITRACIN 28 GM OINTMENT TP SCH ×2 (08:44→16:03)
[2022-03-29] MEDS: MULTIVITAMINS WITH MINERALS, THERAPEUTIC TABLET PO SCH (08:45)
[2022-03-29] MEDS: DIVALPROEX SODIUM 500 MG DR TABLET PO SCH ×2 (08:45→20:07)
[2022-03-29] MEDS: LORazepam 2 MG TABLET PO PRN ×2 (08:45→13:48)
[2022-03-29] MEDS: NICOTINE 14 MG/24 HOUR PATCH TD SCH (08:49)
[2022-03-29] MEDS: HALOPERIDOL 5 MG TABLET PO PRN ×2 (11:40→16:02)
[2022-03-29] MEDS: ZOLPIDEM TARTRATE 10 MG TABLET PO PRN (20:07)
[2022-03-29] MEDS: QUEtiapine FUMARATE 300 MG TABLET PO SCH (20:07)
[2022-03-29 21:02] VITALS: BP 121/72
[2022-03-30] MEDS: LORazepam 2 MG TABLET PO PRN ×3 (00:14→15:07)
[2022-03-30] MEDS: BACITRACIN 28 GM OINTMENT TP SCH ×2 (08:17→16:07)
[2022-03-30] MEDS: NICOTINE 14 MG/24 HOUR PATCH TD SCH (08:17)
[2022-03-30] MEDS: MULTIVITAMINS WITH MINERALS, THERAPEUTIC TABLET PO SCH (08:17)
[2022-03-30] MEDS: DIVALPROEX SODIUM 500 MG DR TABLET PO SCH ×2 (09:00→20:06)
[2022-03-30 09:40] VITALS: BP 116/65
[2022-03-30] MEDS: ZOLPIDEM TARTRATE 10 MG TABLET PO PRN (20:06)
[2022-03-30] MEDS: QUEtiapine FUMARATE 300 MG TABLET PO SCH (20:06)
[2022-03-30 20:15] VITALS: BP 109/73
[2022-03-31 08:23] VITALS: BP 114/69
[2022-03-31] MEDS: LORazepam 2 MG TABLET PO PRN ×2 (08:47→15:00)
[2022-03-31] MEDS: BACITRACIN 28 GM OINTMENT TP SCH ×2 (08:47→16:21)
[2022-03-31] MEDS: DIVALPROEX SODIUM 500 MG DR TABLET PO SCH ×2 (08:47→20:01)
[2022-03-31] MEDS: MULTIVITAMINS WITH MINERALS, THERAPEUTIC TABLET PO SCH (08:47)
[2022-03-31] MEDS: NICOTINE 14 MG/24 HOUR PATCH TD SCH ×2 (08:59→15:00)
[2022-03-31] MEDS: HALOPERIDOL 5 MG TABLET PO PRN ×2 (09:04→15:00)
[2022-03-31] MEDS: ZOLPIDEM TARTRATE 10 MG TABLET PO PRN (20:01)
[2022-03-31] MEDS: QUEtiapine FUMARATE 300 MG TABLET PO SCH (20:01)
[2022-04-01 00:16] VITALS: BP 103/68
[2022-04-01] MEDS: LORazepam 2 MG TABLET PO PRN ×4 (01:06→20:43)
[2022-04-01] MEDS: MULTIVITAMINS WITH MINERALS, THERAPEUTIC TABLET PO SCH (08:09)
[2022-04-01] MEDS: BACITRACIN 28 GM OINTMENT TP SCH ×2 (08:09→17:01)
[2022-04-01] MEDS: HALOPERIDOL 5 MG TABLET PO PRN (08:10)
[2022-04-01] MEDS: DIVALPROEX SODIUM 500 MG DR TABLET PO SCH ×2 (08:10→20:44)
[2022-04-01] MEDS: NICOTINE 14 MG/24 HOUR PATCH TD SCH (08:10)
[2022-04-01 08:24] VITALS: BP 114/65
[2022-04-01] MEDS: ZOLPIDEM TARTRATE 10 MG TABLET PO PRN (20:43)
[2022-04-01] MEDS: QUEtiapine FUMARATE 300 MG TABLET PO SCH (20:44)
[2022-04-02 05:49] VITALS: BP 120/81
[2022-04-02 08:24] VITALS: BP 110/65
[2022-04-02] MEDS: LORazepam 2 MG TABLET PO PRN ×2 (08:34→15:38)
[2022-04-02] MEDS: BACITRACIN 28 GM OINTMENT TP SCH ×2 (08:34→17:10)
[2022-04-02] MEDS: MULTIVITAMINS WITH MINERALS, THERAPEUTIC TABLET PO SCH (08:34)
[2022-04-02] MEDS: DIVALPROEX SODIUM 500 MG DR TABLET PO SCH ×2 (08:34→21:07)
[2022-04-02] MEDS: NICOTINE 14 MG/24 HOUR PATCH TD SCH (08:43)
[2022-04-02] MEDS: HALOPERIDOL 5 MG TABLET PO PRN (15:37)
[2022-04-02 17:10] VITALS: BP 112/68
[2022-04-02] MEDS: IBUPROFEN 400 MG TABLET PO PRN (17:10)
[2022-04-02] MEDS: QUEtiapine FUMARATE 300 MG TABLET PO SCH (21:07)
[2022-04-02] MEDS: ZOLPIDEM TARTRATE 10 MG TABLET PO PRN (21:07)
[2022-04-03 05:29] VITALS: BP 118/72
[2022-04-03 07:46] LABS: GLUCOMETER DEV NAME(LOC) POC.BV
[2022-04-03] MEDS: NICOTINE 14 MG/24 HOUR PATCH TD SCH (08:22)
[2022-04-03] MEDS: DIVALPROEX SODIUM 500 MG DR TABLET PO SCH ×2 (08:22→20:07)
[2022-04-03] MEDS: MULTIVITAMINS WITH MINERALS, THERAPEUTIC TABLET PO SCH (08:22)
[2022-04-03] MEDS: BACITRACIN 28 GM OINTMENT TP SCH ×2 (08:22→16:04)
[2022-04-03 09:42] VITALS: BP 98/61
[2022-04-03] MEDS: HALOPERIDOL 5 MG TABLET PO PRN (15:33)
[2022-04-03] MEDS: LORazepam 2 MG TABLET PO PRN (15:33)
[2022-04-03] MEDS: ZOLPIDEM TARTRATE 10 MG TABLET PO PRN (20:07)
[2022-04-03] MEDS: QUEtiapine FUMARATE 300 MG TABLET PO SCH (20:07)
[2022-04-04 05:30] VITALS: BP 112/63
[2022-04-04] MEDS: DIVALPROEX SODIUM 500 MG DR TABLET PO SCH ×2 (08:30→20:17)
[2022-04-04] MEDS: MULTIVITAMINS WITH MINERALS, THERAPEUTIC TABLET PO SCH (08:30)
[2022-04-04] MEDS: BACITRACIN 28 GM OINTMENT TP SCH (08:31)
[2022-04-04] MEDS: HALOPERIDOL 5 MG TABLET PO PRN ×2 (08:36→15:34)
[2022-04-04] MEDS: LORazepam 2 MG TABLET PO PRN ×2 (08:36→14:47)
[2022-04-04] MEDS: NICOTINE 14 MG/24 HOUR PATCH TD SCH (09:00)
[2022-04-04] MEDS: QUEtiapine FUMARATE 300 MG TABLET PO SCH (20:17)
[2022-04-04 20:43] VITALS: BP 98/69
[2022-04-05 08:38] VITALS: BP 102/70
[2022-04-05] MEDS: NICOTINE 14 MG/24 HOUR PATCH TD SCH (09:00)
[2022-04-05] MEDS: MULTIVITAMINS WITH MINERALS, THERAPEUTIC TABLET PO SCH (09:18)
[2022-04-05] MEDS: LORazepam 2 MG TABLET PO PRN ×2 (09:18→18:18)
[2022-04-05] MEDS: DIVALPROEX SODIUM 500 MG DR TABLET PO SCH ×2 (09:18→21:46)
[2022-04-05] MEDS: HALOPERIDOL 5 MG TABLET PO PRN (14:21)
[2022-04-05] MEDS: MAG HYDROX/AL HYDROX/SIMETH ES 30 ML SUSPENSION UDCUP PO PRN (17:18)
[2022-04-05 20:48] VITALS: BP 102/64
[2022-04-05] MEDS: QUEtiapine FUMARATE 300 MG TABLET PO SCH (21:47)
[2022-04-06] MEDS: NICOTINE 14 MG/24 HOUR PATCH TD SCH (08:41)
[2022-04-06] MEDS: MULTIVITAMINS WITH MINERALS, THERAPEUTIC TABLET PO SCH (08:42)
[2022-04-06] MEDS: DIVALPROEX SODIUM 500 MG DR TABLET PO SCH ×2 (08:42→21:07)
[2022-04-06] MEDS: LORazepam 2 MG TABLET PO PRN ×2 (10:27→14:29)
[2022-04-06 20:00] VITALS: BP 108/72
[2022-04-06] MEDS: QUEtiapine FUMARATE 300 MG TABLET PO SCH (21:07)
[2022-04-07] MEDS: NICOTINE 14 MG/24 HOUR PATCH TD SCH (09:08)
[2022-04-07] MEDS: MULTIVITAMINS WITH MINERALS, THERAPEUTIC TABLET PO SCH (09:08)
[2022-04-07] MEDS: DIVALPROEX SODIUM 500 MG DR TABLET PO SCH ×2 (09:08→20:17)
[2022-04-07] MEDS: LORazepam 2 MG TABLET PO PRN (14:08)
[2022-04-07] MEDS: HALOPERIDOL 5 MG TABLET PO PRN (14:08)
[2022-04-07] MEDS: QUEtiapine FUMARATE 300 MG TABLET PO SCH (20:17)
[2022-04-07] MEDS: ZOLPIDEM TARTRATE 10 MG TABLET PO PRN (20:17)
[2022-04-08] MEDS: QUEtiapine FUMARATE 200 MG TABLET PO SCH ×2 (08:11→20:22)
[2022-04-08] MEDS: MULTIVITAMINS WITH MINERALS, THERAPEUTIC TABLET PO SCH (08:11)
[2022-04-08] MEDS: DIVALPROEX SODIUM 500 MG DR TABLET PO SCH ×2 (08:11→20:22)
[2022-04-08] MEDS: LORazepam 2 MG TABLET PO PRN ×2 (08:12→15:32)
[2022-04-08] MEDS: NICOTINE 14 MG/24 HOUR PATCH TD SCH (08:12)
[2022-04-08] MEDS ORDERED: TUBERCULIN, PURIFIED PROTEIN DERIVATIVE 5 TU/0.1 ML SYRINGE ID ONE (10:15)
[2022-04-09] MEDS: LORazepam 2 MG TABLET PO PRN (08:51)
[2022-04-09] MEDS: HALOPERIDOL 5 MG TABLET PO PRN (08:51)
[2022-04-09] MEDS: QUEtiapine FUMARATE 200 MG TABLET PO SCH ×2 (08:51→20:39)
[2022-04-09] MEDS: DIVALPROEX SODIUM 500 MG DR TABLET PO SCH ×2 (08:51→20:39)
[2022-04-09] MEDS: MULTIVITAMINS WITH MINERALS, THERAPEUTIC TABLET PO SCH (08:51)
[2022-04-09] MEDS: NICOTINE 14 MG/24 HOUR PATCH TD SCH (08:53)
[2022-04-09] MEDS: GuaiFENesin/D-METHORPHAN [SUGAR-FREE] 200-20MG/10 ML SYRUP UDCUP PO PRN (08:53)
[2022-04-10] MEDS: MULTIVITAMINS WITH MINERALS, THERAPEUTIC TABLET PO SCH (08:29)
[2022-04-10] MEDS: NICOTINE 14 MG/24 HOUR PATCH TD SCH ×2 (08:29→08:39)
[2022-04-10] MEDS: DIVALPROEX SODIUM 500 MG DR TABLET PO SCH ×2 (08:29→20:14)
[2022-04-10] MEDS: QUEtiapine FUMARATE 200 MG TABLET PO SCH ×2 (08:29→20:14)
[2022-04-10 09:40] VITALS: BP 100/72
[2022-04-10 13:21] LABS: GLUCOMETER DEV NAME(LOC) POC.BV
[2022-04-10] MEDS: LORazepam 2 MG TABLET PO PRN (18:28)
[2022-04-10] MEDS: ZOLPIDEM TARTRATE 10 MG TABLET PO PRN (20:15)
[2022-04-10 20:33] VITALS: BP 108/64
[2022-04-11] MEDS: MULTIVITAMINS WITH MINERALS, THERAPEUTIC TABLET PO SCH (08:48)
[2022-04-11] MEDS: QUEtiapine FUMARATE 200 MG TABLET PO SCH ×2 (08:48→20:54)
[2022-04-11] MEDS: DIVALPROEX SODIUM 500 MG DR TABLET PO SCH ×2 (08:48→20:54)
[2022-04-11] MEDS: NICOTINE 14 MG/24 HOUR PATCH TD SCH (09:00)
[2022-04-11] MEDS ORDERED: QUET200T PO (10:19)
[2022-04-11] MEDS ORDERED: DIVA-112 PO (10:21)
[2022-04-11] MEDS: IBUPROFEN 400 MG TABLET PO PRN (18:45)
[2022-04-11] MEDS: BACITRACIN 28 GM OINTMENT TP SCH (18:45)
[2022-04-11 20:23] VITALS: BP 112/69
[2022-04-11] MEDS: LORazepam 2 MG TABLET PO PRN (20:24)
[2022-04-12] MEDS: NICOTINE 14 MG/24 HOUR PATCH TD SCH (09:00)
[2022-04-12] MEDS: MULTIVITAMINS WITH MINERALS, THERAPEUTIC TABLET PO SCH (09:10)
[2022-04-12] MEDS: QUEtiapine FUMARATE 200 MG TABLET PO SCH ×2 (09:11→21:09)
[2022-04-12] MEDS: LORazepam 2 MG TABLET PO PRN ×2 (09:11→17:36)
[2022-04-12] MEDS: DIVALPROEX SODIUM 500 MG DR TABLET PO SCH ×2 (09:11→21:08)
[2022-04-12] MEDS: BACITRACIN 28 GM OINTMENT TP SCH ×2 (09:23→16:49)
[2022-04-12] MEDS: TraZODone HCL 50 MG TABLET PO SCH (21:08)
[2022-04-12 22:03] VITALS: BP 102/63
[2022-04-13] MEDS: MULTIVITAMINS WITH MINERALS, THERAPEUTIC TABLET PO SCH (08:31)
[2022-04-13] MEDS: NICOTINE 14 MG/24 HOUR PATCH TD SCH ×2 (08:31→09:00)
[2022-04-13] MEDS: QUEtiapine FUMARATE 200 MG TABLET PO SCH ×2 (08:31→20:25)
[2022-04-13] MEDS: DIVALPROEX SODIUM 500 MG DR TABLET PO SCH ×2 (08:31→20:25)
[2022-04-13] MEDS: BACITRACIN 28 GM OINTMENT TP SCH ×3 (08:32→16:42)
[2022-04-13] MEDS: HALOPERIDOL 5 MG TABLET PO PRN (17:18)
[2022-04-13] MEDS: LORazepam 2 MG TABLET PO PRN (17:18)
[2022-04-13] MEDS: TraZODone HCL 50 MG TABLET PO SCH (20:25)
[2022-04-13 21:01] VITALS: BP 102/58
[2022-04-14] MEDS: MULTIVITAMINS WITH MINERALS, THERAPEUTIC TABLET PO SCH (08:47)
[2022-04-14] MEDS: QUEtiapine FUMARATE 200 MG TABLET PO SCH ×2 (08:47→20:00)
[2022-04-14] MEDS: LORazepam 2 MG TABLET PO PRN ×2 (08:48→17:38)
[2022-04-14] MEDS: DIVALPROEX SODIUM 500 MG DR TABLET PO SCH ×2 (08:48→20:00)
[2022-04-14] MEDS: BACITRACIN 28 GM OINTMENT TP SCH ×2 (08:51→16:16)
[2022-04-14] MEDS: NICOTINE 14 MG/24 HOUR PATCH TD SCH (08:54)
[2022-04-14] MEDS: HALOPERIDOL 5 MG TABLET PO PRN (17:38)
[2022-04-14 18:05] VITALS: BP 119/60
[2022-04-14] MEDS: IBUPROFEN 400 MG TABLET PO PRN (18:05)
[2022-04-14] MEDS: TraZODone HCL 50 MG TABLET PO SCH (20:00)
[2022-04-14 21:10] VITALS: BP 111/62
[2022-04-15 08:00] VITALS: BP 110/72
[2022-04-15] MEDS: DIVALPROEX SODIUM 500 MG DR TABLET PO SCH ×2 (08:07→20:05)
[2022-04-15] MEDS: MULTIVITAMINS WITH MINERALS, THERAPEUTIC TABLET PO SCH (08:08)
[2022-04-15] MEDS: LORazepam 2 MG TABLET PO PRN ×2 (08:08→16:32)
[2022-04-15] MEDS: NICOTINE 14 MG/24 HOUR PATCH TD SCH (08:08)
[2022-04-15] MEDS: QUEtiapine FUMARATE 200 MG TABLET PO SCH ×2 (08:08→20:04)
[2022-04-15] MEDS: BACITRACIN 28 GM OINTMENT TP SCH ×2 (09:02→16:02)
[2022-04-15] MEDS: HALOPERIDOL 5 MG TABLET PO PRN (16:32)
[2022-04-15] MEDS: GuaiFENesin/D-METHORPHAN [SUGAR-FREE] 200-20MG/10 ML SYRUP UDCUP PO PRN (17:52)
[2022-04-15] MEDS: TraZODone HCL 50 MG TABLET PO SCH (20:05)
[2022-04-16 00:32] VITALS: BP 118/76
[2022-04-16] MEDS: BACITRACIN 28 GM OINTMENT TP SCH ×2 (08:53→16:20)
[2022-04-16] MEDS: QUEtiapine FUMARATE 200 MG TABLET PO SCH ×2 (08:54→20:20)
[2022-04-16] MEDS: LORazepam 2 MG TABLET PO PRN ×2 (08:54→17:12)
[2022-04-16] MEDS: MULTIVITAMINS WITH MINERALS, THERAPEUTIC TABLET PO SCH (08:54)
[2022-04-16] MEDS: DIVALPROEX SODIUM 500 MG DR TABLET PO SCH ×2 (08:54→20:20)
[2022-04-16] MEDS: NICOTINE 14 MG/24 HOUR PATCH TD SCH (08:55)
[2022-04-16] MEDS: ONDANSETRON HCL 4 MG TABLET PO PRN (19:35)
[2022-04-16] MEDS: TraZODone HCL 50 MG TABLET PO SCH (20:20)
[2022-04-16 20:57] VITALS: BP 112/72
[2022-04-17] MEDS: NICOTINE 14 MG/24 HOUR PATCH TD SCH (09:40)
[2022-04-17] MEDS: QUEtiapine FUMARATE 200 MG TABLET PO SCH ×2 (09:40→20:00)
[2022-04-17] MEDS: DIVALPROEX SODIUM 500 MG DR TABLET PO SCH ×2 (09:40→20:00)
[2022-04-17] MEDS: MULTIVITAMINS WITH MINERALS, THERAPEUTIC TABLET PO SCH (09:40)
[2022-04-17] MEDS: BACITRACIN 28 GM OINTMENT TP SCH ×2 (09:41→18:00)
[2022-04-17] MEDS: LORazepam 2 MG TABLET PO PRN ×2 (09:41→17:58)
[2022-04-17] MEDS: MAG HYDROX/AL HYDROX/SIMETH ES 30 ML SUSPENSION UDCUP PO PRN (19:36)
[2022-04-17] MEDS: TraZODone HCL 50 MG TABLET PO SCH (20:00)
[2022-04-17 20:26] VITALS: BP 106/62
[2022-04-18] MEDS: NICOTINE 14 MG/24 HOUR PATCH TD SCH (09:00)
[2022-04-18] MEDS: MULTIVITAMINS WITH MINERALS, THERAPEUTIC TABLET PO SCH (09:08)
[2022-04-18] MEDS: LORazepam 2 MG TABLET PO PRN ×2 (09:08→16:26)
[2022-04-18] MEDS: BACITRACIN 28 GM OINTMENT TP SCH ×2 (09:08→16:13)
[2022-04-18] MEDS: QUEtiapine FUMARATE 200 MG TABLET PO SCH ×2 (09:08→20:53)
[2022-04-18] MEDS: DIVALPROEX SODIUM 500 MG DR TABLET PO SCH ×2 (09:08→20:53)
[2022-04-18 15:01] LABS: GLUCOMETER DEV NAME(LOC) POC.BV
[2022-04-18] MEDS: HALOPERIDOL 5 MG TABLET PO PRN (16:26)
[2022-04-18 20:24] VITALS: BP 110/66
[2022-04-18] MEDS: TraZODone HCL 50 MG TABLET PO SCH (20:53)
[2022-04-19] MEDS: DIVALPROEX SODIUM 500 MG DR TABLET PO SCH ×2 (08:03→20:01)
[2022-04-19] MEDS: QUEtiapine FUMARATE 200 MG TABLET PO SCH ×2 (08:03→20:01)
[2022-04-19] MEDS: MULTIVITAMINS WITH MINERALS, THERAPEUTIC TABLET PO SCH (08:03)
[2022-04-19] MEDS: LORazepam 2 MG TABLET PO PRN ×2 (08:03→16:53)
[2022-04-19] MEDS: BACITRACIN 28 GM OINTMENT TP SCH ×2 (08:04→16:44)
[2022-04-19] MEDS: NICOTINE 14 MG/24 HOUR PATCH TD SCH (08:04)
[2022-04-19] MEDS: MAG HYDROX/AL HYDROX/SIMETH ES 30 ML SUSPENSION UDCUP PO PRN ×3 (08:10→20:46)
[2022-04-19 08:28] VITALS: BP 119/68
[2022-04-19] MEDS ORDERED: PIPERONYL BUTOXIDE/PYRETHRINS 120 ML SHAMPOO TP ONE (13:00)
[2022-04-19] MEDS ORDERED: IVERMECTIN 3 MG TABLET PO ONE (14:45)
[2022-04-19] MEDS: TraZODone HCL 50 MG TABLET PO SCH (20:01)
[2022-04-20 02:23] VITALS: BP 102/60
[2022-04-20] MEDS: ONDANSETRON HCL 4 MG TABLET PO PRN (03:12)
[2022-04-20] MEDS: BACITRACIN 28 GM OINTMENT TP SCH ×2 (09:00→16:09)
[2022-04-20] MEDS: NICOTINE 14 MG/24 HOUR PATCH TD SCH (09:00)
[2022-04-20] MEDS: QUEtiapine FUMARATE 200 MG TABLET PO SCH ×2 (10:34→20:17)
[2022-04-20] MEDS: DIVALPROEX SODIUM 500 MG DR TABLET PO SCH ×2 (10:34→20:16)
[2022-04-20] MEDS: MULTIVITAMINS WITH MINERALS, THERAPEUTIC TABLET PO SCH (10:34)
[2022-04-20] MEDS: HALOPERIDOL 5 MG TABLET PO PRN (16:10)
[2022-04-20] MEDS: LORazepam 2 MG TABLET PO PRN (16:10)
[2022-04-20] MEDS: MAG HYDROX/AL HYDROX/SIMETH ES 30 ML SUSPENSION UDCUP PO PRN ×2 (17:15→22:16)
[2022-04-20] MEDS: ACETAMINOPHEN 325 MG TABLET PO PRN (17:49)
[2022-04-20] MEDS: TraZODone HCL 50 MG TABLET PO SCH (20:17)
[2022-04-20 20:43] VITALS: BP 105/74
[2022-04-20] MEDS: PredniSONE 10 MG TABLET PO SCH (22:15)
[2022-04-21] MEDS: DIVALPROEX SODIUM 500 MG DR TABLET PO SCH ×2 (08:35→20:28)
[2022-04-21] MEDS: BACITRACIN 28 GM OINTMENT TP SCH ×2 (08:35→16:26)
[2022-04-21] MEDS: QUEtiapine FUMARATE 200 MG TABLET PO SCH ×2 (08:35→20:28)
[2022-04-21] MEDS: MULTIVITAMINS WITH MINERALS, THERAPEUTIC TABLET PO SCH (08:35)
[2022-04-21] MEDS: NICOTINE 14 MG/24 HOUR PATCH TD SCH (08:36)
[2022-04-21] MEDS: PredniSONE 10 MG TABLET PO SCH (08:38)
[2022-04-21] MEDS: LORazepam 2 MG TABLET PO PRN (09:58)
[2022-04-21] MEDS ORDERED: MINERAL OIL 90 ML BOTTLE TP PRN (10:00)
[2022-04-21] MEDS: MAG HYDROX/AL HYDROX/SIMETH ES 30 ML SUSPENSION UDCUP PO PRN (17:11)
[2022-04-21] MEDS: HALOPERIDOL 5 MG TABLET PO PRN (17:49)
[2022-04-21 20:06] VITALS: BP 109/67
[2022-04-21] MEDS: TraZODone HCL 50 MG TABLET PO SCH (20:28)
[2022-04-22 08:13] VITALS: BP 116/72
[2022-04-22] MEDS: PredniSONE 10 MG TABLET PO SCH (08:35)
[2022-04-22] MEDS: QUEtiapine FUMARATE 200 MG TABLET PO SCH ×2 (08:35→20:16)
[2022-04-22] MEDS: DIVALPROEX SODIUM 500 MG DR TABLET PO SCH ×2 (08:35→20:16)
[2022-04-22] MEDS: MULTIVITAMINS WITH MINERALS, THERAPEUTIC TABLET PO SCH (08:35)
[2022-04-22] MEDS: LORazepam 2 MG TABLET PO PRN ×2 (08:35→20:30)
[2022-04-22] MEDS: BACITRACIN 28 GM OINTMENT TP SCH ×2 (08:39→17:08)
[2022-04-22] MEDS: NICOTINE 14 MG/24 HOUR PATCH TD SCH (08:40)
[2022-04-22] MEDS: MAG HYDROX/AL HYDROX/SIMETH ES 30 ML SUSPENSION UDCUP PO PRN (18:14)
[2022-04-22 20:00] VITALS: BP 112/60
[2022-04-22] MEDS: TraZODone HCL 50 MG TABLET PO SCH (20:16)
[2022-04-22] MEDS: DiphenhydrAMINE HCL 25 MG CAPSULE PO PRN (20:30)
[2022-04-23] MEDS: NICOTINE 14 MG/24 HOUR PATCH TD SCH (08:47)
[2022-04-23] MEDS: PredniSONE 10 MG TABLET PO SCH (08:48)
[2022-04-23] MEDS: LORazepam 2 MG TABLET PO PRN ×2 (08:48→16:34)
[2022-04-23] MEDS: QUEtiapine FUMARATE 200 MG TABLET PO SCH ×2 (08:48→20:10)
[2022-04-23] MEDS: MULTIVITAMINS WITH MINERALS, THERAPEUTIC TABLET PO SCH (08:48)
[2022-04-23] MEDS: DIVALPROEX SODIUM 500 MG DR TABLET PO SCH ×2 (08:48→20:10)
[2022-04-23] MEDS: BACITRACIN 28 GM OINTMENT TP SCH ×2 (08:49→16:34)
[2022-04-23] MEDS: HALOPERIDOL 5 MG TABLET PO PRN (16:34)
[2022-04-23] MEDS: DiphenhydrAMINE HCL 25 MG CAPSULE PO PRN (16:34)
[2022-04-23] MEDS: TraZODone HCL 50 MG TABLET PO SCH (20:10)
[2022-04-23 20:12] VITALS: BP 109/62
[2022-04-24] MEDS: BACITRACIN 28 GM OINTMENT TP SCH ×2 (08:15→16:08)
[2022-04-24] MEDS: NICOTINE 14 MG/24 HOUR PATCH TD SCH (08:15)
[2022-04-24] MEDS: LORazepam 2 MG TABLET PO PRN ×2 (08:16→16:08)
[2022-04-24] MEDS: MULTIVITAMINS WITH MINERALS, THERAPEUTIC TABLET PO SCH (08:16)
[2022-04-24] MEDS: PredniSONE 10 MG TABLET PO SCH (08:16)
[2022-04-24] MEDS: HALOPERIDOL 5 MG TABLET PO PRN (08:16)
[2022-04-24] MEDS: QUEtiapine FUMARATE 200 MG TABLET PO SCH ×2 (08:16→21:09)
[2022-04-24] MEDS: DIVALPROEX SODIUM 500 MG DR TABLET PO SCH ×2 (08:16→21:08)
[2022-04-24 08:22] VITALS: BP 110/73
[2022-04-24] MEDS ORDERED: MINERAL OIL 90 ML BOTTLE TP PRN (14:30)
[2022-04-24] MEDS: DiphenhydrAMINE HCL 25 MG CAPSULE PO PRN (16:08)
[2022-04-24] MEDS: MAG HYDROX/AL HYDROX/SIMETH ES 30 ML SUSPENSION UDCUP PO PRN (17:39)
[2022-04-24 20:26] VITALS: BP 113/61
[2022-04-24] MEDS: TraZODone HCL 50 MG TABLET PO SCH (21:08)
[2022-04-25 08:09] VITALS: BP 110/68
[2022-04-25 08:11] LABS: GLUCOMETER DEV NAME(LOC) POC.BV
[2022-04-25] MEDS: QUEtiapine FUMARATE 200 MG TABLET PO SCH ×2 (09:20→20:42)
[2022-04-25] MEDS: MULTIVITAMINS WITH MINERALS, THERAPEUTIC TABLET PO SCH (09:20)
[2022-04-25] MEDS: DIVALPROEX SODIUM 500 MG DR TABLET PO SCH ×2 (09:20→20:43)
[2022-04-25] MEDS: PredniSONE 10 MG TABLET PO SCH (09:20)
[2022-04-25] MEDS: DiphenhydrAMINE HCL 25 MG CAPSULE PO PRN (09:20)
[2022-04-25] MEDS: HALOPERIDOL 5 MG TABLET PO PRN ×2 (09:21→18:09)
[2022-04-25] MEDS: BACITRACIN 28 GM OINTMENT TP SCH ×2 (09:22→17:00)
[2022-04-25] MEDS: NICOTINE 14 MG/24 HOUR PATCH TD SCH (09:28)
[2022-04-25] MEDS: LORazepam 2 MG TABLET PO PRN (16:03)
[2022-04-25] MEDS: MAG HYDROX/AL HYDROX/SIMETH ES 30 ML SUSPENSION UDCUP PO PRN (17:43)
[2022-04-25 20:26] VITALS: BP 108/73
[2022-04-25] MEDS: TraZODone HCL 50 MG TABLET PO SCH (20:42)
[2022-04-26] MEDS: PredniSONE 10 MG TABLET PO SCH (08:20)
[2022-04-26] MEDS: QUEtiapine FUMARATE 200 MG TABLET PO SCH ×2 (08:20→20:15)
[2022-04-26] MEDS: DIVALPROEX SODIUM 500 MG DR TABLET PO SCH ×2 (08:20→20:15)
[2022-04-26] MEDS: MULTIVITAMINS WITH MINERALS, THERAPEUTIC TABLET PO SCH (08:20)
[2022-04-26] MEDS: LORazepam 2 MG TABLET PO PRN ×2 (08:20→15:56)
[2022-04-26] MEDS: NICOTINE 14 MG/24 HOUR PATCH TD SCH (08:28)
[2022-04-26] MEDS: BACITRACIN 28 GM OINTMENT TP SCH ×2 (08:28→16:01)
[2022-04-26] MEDS ORDERED: IVERMECTIN 3 MG TABLET PO ONE (09:00)
[2022-04-26] MEDS: MAG HYDROX/AL HYDROX/SIMETH ES 30 ML SUSPENSION UDCUP PO PRN (17:11)
[2022-04-26] MEDS: HALOPERIDOL 5 MG TABLET PO PRN (17:12)
[2022-04-26] MEDS: DiphenhydrAMINE HCL 25 MG CAPSULE PO PRN (18:05)
[2022-04-26 20:07] VITALS: BP 110/70
[2022-04-26] MEDS: TraZODone HCL 50 MG TABLET PO SCH (20:15)
[2022-04-27 04:10] VITALS: BP 122/95
[2022-04-27] MEDS: BACITRACIN 28 GM OINTMENT TP SCH ×2 (09:00→16:19)
[2022-04-27] MEDS: MULTIVITAMINS WITH MINERALS, THERAPEUTIC TABLET PO SCH (09:00)
[2022-04-27] MEDS: DIVALPROEX SODIUM 500 MG DR TABLET PO SCH ×2 (09:00→20:00)
[2022-04-27] MEDS: QUEtiapine FUMARATE 200 MG TABLET PO SCH ×2 (09:00→20:00)
[2022-04-27] MEDS: PredniSONE 10 MG TABLET PO SCH (09:00)
[2022-04-27] MEDS: NICOTINE 14 MG/24 HOUR PATCH TD SCH (09:00)
[2022-04-27] MEDS: TraZODone HCL 50 MG TABLET PO SCH (20:00)
[2022-04-27 20:29] VITALS: BP 110/60
[2022-04-27] MEDS: LORazepam 2 MG TABLET PO PRN (21:16)
[2022-04-27] MEDS: MAG HYDROX/AL HYDROX/SIMETH ES 30 ML SUSPENSION UDCUP PO PRN (21:16)
[2022-04-28] MEDS: DIVALPROEX SODIUM 500 MG DR TABLET PO SCH ×2 (08:31→20:05)
[2022-04-28] MEDS: QUEtiapine FUMARATE 200 MG TABLET PO SCH ×2 (08:31→20:05)
[2022-04-28] MEDS: NICOTINE 14 MG/24 HOUR PATCH TD SCH (08:31)
[2022-04-28] MEDS: BACITRACIN 28 GM OINTMENT TP SCH ×2 (08:31→16:43)
[2022-04-28] MEDS: MULTIVITAMINS WITH MINERALS, THERAPEUTIC TABLET PO SCH (08:31)
[2022-04-28] MEDS: MAG HYDROX/AL HYDROX/SIMETH ES 30 ML SUSPENSION UDCUP PO PRN (18:32)
[2022-04-28] MEDS: HALOPERIDOL 5 MG TABLET PO PRN (18:39)
[2022-04-28] MEDS: LORazepam 2 MG TABLET PO PRN (18:39)
[2022-04-28] MEDS: TraZODone HCL 50 MG TABLET PO SCH (20:05)
[2022-04-28 20:24] VITALS: BP 114/62
[2022-04-29] MEDS: NICOTINE 14 MG/24 HOUR PATCH TD SCH (08:24)
[2022-04-29 08:25] VITALS: BP 112/76
[2022-04-29] MEDS: MULTIVITAMINS WITH MINERALS, THERAPEUTIC TABLET PO SCH (08:25)
[2022-04-29] MEDS: DIVALPROEX SODIUM 500 MG DR TABLET PO SCH ×2 (08:25→20:00)
[2022-04-29] MEDS: HALOPERIDOL 5 MG TABLET PO PRN ×2 (08:25→16:01)
[2022-04-29] MEDS: LORazepam 2 MG TABLET PO PRN ×2 (08:25→16:01)
[2022-04-29] MEDS: QUEtiapine FUMARATE 200 MG TABLET PO SCH ×2 (08:25→20:00)
[2022-04-29] MEDS: BACITRACIN 28 GM OINTMENT TP SCH ×2 (08:27→16:07)
[2022-04-29] MEDS: MAG HYDROX/AL HYDROX/SIMETH ES 30 ML SUSPENSION UDCUP PO PRN (20:00)
[2022-04-29] MEDS: TraZODone HCL 50 MG TABLET PO SCH (20:00)
[2022-04-29 21:15] VITALS: BP 115/62
[2022-04-30] MEDS: NICOTINE 14 MG/24 HOUR PATCH TD SCH (08:04)
[2022-04-30] MEDS: LORazepam 2 MG TABLET PO PRN ×2 (08:05→20:30)
[2022-04-30] MEDS: MULTIVITAMINS WITH MINERALS, THERAPEUTIC TABLET PO SCH (08:05)
[2022-04-30] MEDS: HALOPERIDOL 5 MG TABLET PO PRN (08:05)
[2022-04-30] MEDS: DIVALPROEX SODIUM 500 MG DR TABLET PO SCH ×2 (08:05→20:03)
[2022-04-30] MEDS: QUEtiapine FUMARATE 200 MG TABLET PO SCH ×2 (08:05→20:03)
[2022-04-30] MEDS: BACITRACIN 28 GM OINTMENT TP SCH ×2 (08:09→17:02)
[2022-04-30 08:20] VITALS: BP 112/66
[2022-04-30] MEDS: MAG HYDROX/AL HYDROX/SIMETH ES 30 ML SUSPENSION UDCUP PO PRN (17:50)
[2022-04-30 20:03] VITALS: BP 110/68
[2022-04-30] MEDS: TraZODone HCL 50 MG TABLET PO SCH (20:03)
[2022-05-01] MEDS: LORazepam 2 MG TABLET PO PRN ×2 (08:10→17:56)
[2022-05-01] MEDS: DIVALPROEX SODIUM 500 MG DR TABLET PO SCH ×2 (08:10→20:07)
[2022-05-01] MEDS: QUEtiapine FUMARATE 200 MG TABLET PO SCH ×2 (08:10→20:03)
[2022-05-01] MEDS: MULTIVITAMINS WITH MINERALS, THERAPEUTIC TABLET PO SCH (08:10)
[2022-05-01] MEDS: HALOPERIDOL 5 MG TABLET PO PRN ×2 (08:10→17:56)
[2022-05-01] MEDS: NICOTINE 14 MG/24 HOUR PATCH TD SCH (08:11)
[2022-05-01] MEDS: BACITRACIN 28 GM OINTMENT TP SCH ×2 (08:13→16:37)
[2022-05-01] MEDS: MAG HYDROX/AL HYDROX/SIMETH ES 30 ML SUSPENSION UDCUP PO PRN (17:56)
[2022-05-01] MEDS: TraZODone HCL 50 MG TABLET PO SCH (20:03)
[2022-05-01 20:09] VITALS: BP 125/75
[2022-05-02] MEDS: QUEtiapine FUMARATE 200 MG TABLET PO SCH ×2 (08:36→20:07)
[2022-05-02] MEDS: LORazepam 2 MG TABLET PO PRN ×2 (08:36→18:13)
[2022-05-02] MEDS: DIVALPROEX SODIUM 500 MG DR TABLET PO SCH ×2 (08:36→20:06)
[2022-05-02] MEDS: BACITRACIN 28 GM OINTMENT TP SCH ×2 (08:36→16:37)
[2022-05-02] MEDS: MULTIVITAMINS WITH MINERALS, THERAPEUTIC TABLET PO SCH (08:36)
[2022-05-02] MEDS: NICOTINE 14 MG/24 HOUR PATCH TD SCH (08:36)
[2022-05-02 09:35] VITALS: BP 106/50
[2022-05-02 09:41] LABS: GLUCOMETER DEV NAME(LOC) POC.BV
[2022-05-02] MEDS: MAG HYDROX/AL HYDROX/SIMETH ES 30 ML SUSPENSION UDCUP PO PRN (18:11)
[2022-05-02] MEDS: HALOPERIDOL 5 MG TABLET PO PRN (18:13)
[2022-05-02] MEDS: TraZODone HCL 50 MG TABLET PO SCH (20:06)
[2022-05-02 20:46] VITALS: BP 102/75
[2022-05-03] MEDS: QUEtiapine FUMARATE 200 MG TABLET PO SCH ×2 (08:24→20:08)
[2022-05-03] MEDS: DIVALPROEX SODIUM 500 MG DR TABLET PO SCH ×2 (08:25→20:08)
[2022-05-03] MEDS: MULTIVITAMINS WITH MINERALS, THERAPEUTIC TABLET PO SCH (08:25)
[2022-05-03] MEDS: BACITRACIN 28 GM OINTMENT TP SCH ×2 (08:30→16:51)
[2022-05-03 08:43] VITALS: BP 110/66
[2022-05-03] MEDS: NICOTINE 14 MG/24 HOUR PATCH TD SCH (09:00)
[2022-05-03] MEDS: MAG HYDROX/AL HYDROX/SIMETH ES 30 ML SUSPENSION UDCUP PO PRN (17:31)
[2022-05-03] MEDS: LORazepam 2 MG TABLET PO PRN (18:24)
[2022-05-03] MEDS: TraZODone HCL 50 MG TABLET PO SCH (20:08)
[2022-05-03 20:34] VITALS: BP 103/67
[2022-05-04 08:19] VITALS: BP 111/73
[2022-05-04] MEDS: NICOTINE 14 MG/24 HOUR PATCH TD SCH (09:00)
[2022-05-04] MEDS: BACITRACIN 28 GM OINTMENT TP SCH ×2 (09:02→16:16)
[2022-05-04] MEDS: MULTIVITAMINS WITH MINERALS, THERAPEUTIC TABLET PO SCH (09:02)
[2022-05-04] MEDS: QUEtiapine FUMARATE 200 MG TABLET PO SCH ×2 (09:02→20:03)
[2022-05-04] MEDS: DIVALPROEX SODIUM 500 MG DR TABLET PO SCH ×2 (09:02→20:03)
[2022-05-04] MEDS: LORazepam 2 MG TABLET PO PRN ×3 (09:37→21:16)
[2022-05-04] MEDS: MAG HYDROX/AL HYDROX/SIMETH ES 30 ML SUSPENSION UDCUP PO PRN ×2 (18:02→21:07)
[2022-05-04] MEDS: TraZODone HCL 50 MG TABLET PO SCH (20:03)
[2022-05-04 20:20] VITALS: BP 110/68
[2022-05-05] MEDS: NICOTINE 14 MG/24 HOUR PATCH TD SCH (08:25)
[2022-05-05] MEDS: MULTIVITAMINS WITH MINERALS, THERAPEUTIC TABLET PO SCH (08:25)
[2022-05-05] MEDS: BACITRACIN 28 GM OINTMENT TP SCH ×2 (08:25→16:19)
[2022-05-05] MEDS: QUEtiapine FUMARATE 200 MG TABLET PO SCH ×2 (08:25→20:11)
[2022-05-05] MEDS: DIVALPROEX SODIUM 500 MG DR TABLET PO SCH ×2 (08:25→20:11)
[2022-05-05 08:27] VITALS: BP 109/68
[2022-05-05] MEDS: LORazepam 2 MG TABLET PO PRN ×2 (14:23→21:18)
[2022-05-05] MEDS: HALOPERIDOL 5 MG TABLET PO PRN (16:15)
[2022-05-05] MEDS: DiphenhydrAMINE HCL 25 MG CAPSULE PO PRN (17:23)
[2022-05-05] MEDS: MAG HYDROX/AL HYDROX/SIMETH ES 30 ML SUSPENSION UDCUP PO PRN (19:22)
[2022-05-05] MEDS: TraZODone HCL 50 MG TABLET PO SCH (20:11)
[2022-05-06 06:10] VITALS: BP 114/64
[2022-05-06 08:12] VITALS: BP 110/68
[2022-05-06] MEDS: MULTIVITAMINS WITH MINERALS, THERAPEUTIC TABLET PO SCH (08:14)
[2022-05-06] MEDS: QUEtiapine FUMARATE 200 MG TABLET PO SCH ×2 (08:14→20:10)
[2022-05-06] MEDS: NICOTINE 14 MG/24 HOUR PATCH TD SCH (08:14)
[2022-05-06] MEDS: DIVALPROEX SODIUM 500 MG DR TABLET PO SCH ×2 (08:14→20:10)
[2022-05-06] MEDS: BACITRACIN 28 GM OINTMENT TP SCH ×2 (08:15→16:26)
[2022-05-06] MEDS: LORazepam 2 MG TABLET PO PRN ×2 (08:45→17:16)
[2022-05-06] MEDS: MAG HYDROX/AL HYDROX/SIMETH ES 30 ML SUSPENSION UDCUP PO PRN (18:14)
[2022-05-06] MEDS: TraZODone HCL 50 MG TABLET PO SCH (20:10)
[2022-05-06 21:12] VITALS: BP 109/72
[2022-05-07 08:19] VITALS: BP 115/77
[2022-05-07] MEDS: MULTIVITAMINS WITH MINERALS, THERAPEUTIC TABLET PO SCH (08:33)
[2022-05-07] MEDS: DIVALPROEX SODIUM 500 MG DR TABLET PO SCH ×2 (08:33→20:01)
[2022-05-07] MEDS: BACITRACIN 28 GM OINTMENT TP SCH ×2 (08:33→16:15)
[2022-05-07] MEDS: HALOPERIDOL 5 MG TABLET PO PRN ×2 (08:33→19:35)
[2022-05-07] MEDS: LORazepam 2 MG TABLET PO PRN ×2 (08:34→19:35)
[2022-05-07] MEDS: QUEtiapine FUMARATE 200 MG TABLET PO SCH ×2 (08:34→20:01)
[2022-05-07] MEDS: NICOTINE 14 MG/24 HOUR PATCH TD SCH (09:00)
[2022-05-07] MEDS ORDERED: QUET200T30 PO (09:32)
[2022-05-07] MEDS ORDERED: TRAZ-252 PO (09:32)
[2022-05-07] MEDS ORDERED: DIVA-112 PO (09:32)
[2022-05-07] MEDS: MAG HYDROX/AL HYDROX/SIMETH ES 30 ML SUSPENSION UDCUP PO PRN (17:55)
[2022-05-07] MEDS: TraZODone HCL 50 MG TABLET PO SCH (20:01)
[2022-05-07 20:51] VITALS: BP 118/74
[2022-05-08] MEDS: MULTIVITAMINS WITH MINERALS, THERAPEUTIC TABLET PO SCH (08:06)
[2022-05-08] MEDS: BACITRACIN 28 GM OINTMENT TP SCH ×2 (08:06→16:18)
[2022-05-08] MEDS: QUEtiapine FUMARATE 200 MG TABLET PO SCH ×2 (08:06→20:27)
[2022-05-08] MEDS: NICOTINE 14 MG/24 HOUR PATCH TD SCH (08:07)
[2022-05-08] MEDS: DIVALPROEX SODIUM 500 MG DR TABLET PO SCH ×2 (08:07→20:27)
[2022-05-08 08:15] VITALS: BP 110/68
[2022-05-08] MEDS: LORazepam 2 MG TABLET PO PRN ×2 (09:42→17:36)
[2022-05-08] MEDS: HYDROCORTISONE 1% 30 GM CREAM TP PRN ×2 (16:15→16:17)
[2022-05-08] MEDS: MAG HYDROX/AL HYDROX/SIMETH ES 30 ML SUSPENSION UDCUP PO PRN (17:36)
[2022-05-08] MEDS: TraZODone HCL 50 MG TABLET PO SCH (20:27)
[2022-05-08 20:30] VITALS: BP 108/67
[2022-05-08] MEDS: HALOPERIDOL 5 MG TABLET PO PRN (21:08)
[2022-05-09 08:15] VITALS: BP 110/66
[2022-05-09] MEDS: MULTIVITAMINS WITH MINERALS, THERAPEUTIC TABLET PO SCH (08:17)
[2022-05-09] MEDS: HYDROCORTISONE 1% 30 GM CREAM TP PRN (08:17)
[2022-05-09] MEDS: QUEtiapine FUMARATE 200 MG TABLET PO SCH ×2 (08:17→20:00)
[2022-05-09] MEDS: DIVALPROEX SODIUM 500 MG DR TABLET PO SCH ×2 (08:17→20:00)
[2022-05-09] MEDS: BACITRACIN 28 GM OINTMENT TP SCH ×2 (08:17→17:30)
[2022-05-09] MEDS: NICOTINE 14 MG/24 HOUR PATCH TD SCH (08:32)
[2022-05-09] MEDS: LORazepam 2 MG TABLET PO PRN ×2 (09:07→21:00)
[2022-05-09 09:11] LABS: GLUCOMETER DEV NAME(LOC) POC.BV
[2022-05-09] MEDS: MAG HYDROX/AL HYDROX/SIMETH ES 30 ML SUSPENSION UDCUP PO PRN (18:49)
[2022-05-09] MEDS: DiphenhydrAMINE HCL 25 MG CAPSULE PO PRN (19:00)
[2022-05-09] MEDS: TraZODone HCL 50 MG TABLET PO SCH (20:00)
[2022-05-09] MEDS: HALOPERIDOL 5 MG TABLET PO PRN (21:00)
[2022-05-09 21:40] VITALS: BP 109/61
[2022-05-10] MEDS: MULTIVITAMINS WITH MINERALS, THERAPEUTIC TABLET PO SCH (08:18)
[2022-05-10] MEDS: QUEtiapine FUMARATE 200 MG TABLET PO SCH ×2 (08:18→20:22)
[2022-05-10] MEDS: DIVALPROEX SODIUM 500 MG DR TABLET PO SCH ×2 (08:18→20:22)
[2022-05-10] MEDS: NICOTINE 14 MG/24 HOUR PATCH TD SCH (08:18)
[2022-05-10] MEDS: BACITRACIN 28 GM OINTMENT TP SCH ×2 (08:18→16:13)
[2022-05-10] MEDS: HYDROCORTISONE 1% 30 GM CREAM TP PRN (08:19)
[2022-05-10 08:22] VITALS: BP 110/74
[2022-05-10] MEDS: LORazepam 2 MG TABLET PO PRN ×2 (09:43→21:54)
[2022-05-10] MEDS: MAG HYDROX/AL HYDROX/SIMETH ES 30 ML SUSPENSION UDCUP PO PRN (20:22)
[2022-05-10] MEDS: TraZODone HCL 50 MG TABLET PO SCH (20:22)
[2022-05-10 20:50] VITALS: BP 107/70
[2022-05-10] MEDS: HALOPERIDOL 5 MG TABLET PO PRN (21:54)
[2022-05-11 08:02] LABS: GLUCOMETER DEV NAME(LOC) POC.BV
[2022-05-11] MEDS: DIVALPROEX SODIUM 500 MG DR TABLET PO SCH (08:19)
[2022-05-11] MEDS: MULTIVITAMINS WITH MINERALS, THERAPEUTIC TABLET PO SCH (08:19)
[2022-05-11] MEDS: QUEtiapine FUMARATE 200 MG TABLET PO SCH (08:19)
[2022-05-11] MEDS: NICOTINE 14 MG/24 HOUR PATCH TD SCH (08:22)
[2022-05-11 08:23] VITALS: BP 102/57
[2022-05-11] MEDS: BACITRACIN 28 GM OINTMENT TP SCH (08:23)
[2022-05-11] MEDS: MAG HYDROX/AL HYDROX/SIMETH ES 30 ML SUSPENSION UDCUP PO PRN (12:23)
== END 2022-05-11 14:47 | DRG 750 ==
LOC: EMS 05:38 → B3A 12:03
PROVIDERS: ADMIT Psychiatry & Neurology Psychiatry; ATTEND Psychiatry & Neurology Psychiatry
DX: F25.1 Schizoaffective disorder, depressive type (principal); R45.851 Suicidal ideations; B85.0 Pediculosis due to Pediculus humanus capitis; F10.10 Alcohol abuse, uncomplicated; F15.20 Other stimulant dependence, uncomplicated; F41.9 Anxiety disorder, unspecified; F17.210 Nicotine dependence, cigarettes, uncomplicated; Z20.822 Contact with and (suspected) exposure to COVID-19; J45.909 Unspecified asthma, uncomplicated; Z59.00 Homelessness unspecified; Z79.899 Other long term (current) drug therapy; Z91.51 Personal history of suicidal behavior
CPT/HCPCS: 80053; 80061; 80164; 84436; 84703; 85025; 87081; 90686; 90732; 99285; G0480; J1200; J1630; J2060; Q0162